=== PATIENT | female | born 1930 | race Caucasian/White ===

== ENCOUNTER → 2017-03-02 | Outpatient (CLI) | payer OTHER ==
[2016-12-21 08:42] VITALS: BP 115/56
[2017-03-02 13:19] LABS: BASOPHILS % (AUTO) 0.6 % (0.2-1.0); EOSINOPHILS # (AUTO) 0.3 x10^3/uL (0.0-0.2); EOSINOPHILS % (AUTO) 3.5 % (0.9-2.9); HEMATOCRIT 33.1 % (36.0-47.0); LYMPHOCYTES # (AUTO) 1.3 X10^3/uL (1.3-2.9); LYMPHOCYTES % (AUTO) 17.5 % (21.0-51.0); MEAN CORPUSCULAR HEMOGLOBIN 30.6 pg (27.0-34.0); MEAN CORPUSCULAR HGB CONC 33.3 g/dL (33.0-35.0); MEAN CORPUSCULAR VOLUME 91.7 fL (80.0-100.0); MEAN PLATELET VOLUME 7.7 fL (7.4-11.0); MONOCYTES # (AUTO) 0.7 x10^3/uL (0.3-0.8); MONOCYTES % (AUTO) 8.9 % (0.0-13.0); NEUTROPHILS # (AUTO) 5.3 x10^3/uL (2.2-4.8); NEUTROPHILS % (AUTO) 69.5 % (42.0-75.0); PLATELET COUNT 218 X10^3/uL (150.0-450.0); RED BLOOD COUNT 3.61 X10^6/uL (3.5-5.4); WHITE BLOOD COUNT 7.6 X10^3/uL (3.6-10.0)
[2017-03-02 13:27] LABS: HEMOGLOBIN A1C 6.6 % (4.5-6.2)
[2017-03-02 13:49] LABS: ALBUMIN 3.5 g/dL (3.4-5.0); BLOOD UREA NITROGEN 28 mg/dL (7-18); CALCIUM 9.3 mg/dL (8.5-10.1); CARBON DIOXIDE 27.9 mmol/L (21-32); CHLORIDE 106 mmol/L (98-107); CHOL/HDL RATIO 3.8 (0.0-5.0); CHOLESTEROL 165 mg/dL (0-200); COR NA(FOR HYPERGLY) 147 mmol/L (136-145); CREATININE 1.37 mg/dL (0.55-1.02); GLUCOSE 251 mg/dL (65-99); HDL CHOLESTEROL 44 mg/dL (40-60); PHOSPHORUS 3.9 mg/dL (2.6-4.7); SODIUM 143 mmol/L (136-145); TRIGLYCERIDES 117 mg/dL (0-150); eGFR BLACK RACES 47 (>60); eGFR NON BLACK RACES 39 (>60)
== END ==
LOC: LAB 11:14
PROVIDERS: ATTEND Internal Medicine
DX: I12.9 Hypertensive chronic kidney disease with stage 1 through stage 4 chronic kidney disease, or unspecified chronic kidney disease (principal); N18.2 Chronic kidney disease, stage 2 (mild); E11.9 Type 2 diabetes mellitus without complications; E78.4 Other hyperlipidemia
CPT/HCPCS: 36415; 80061; 80069; 83036; 85025

== ENCOUNTER 2017-03-12 11:24 | Emergency (ER) | payer OTHER ==
[2017-03-12 11:29] VITALS: BP 167/82; BMI 23.6
--- NOTE | 2017-03-12 11:39 | DR.GENAD ---
HPI - PCP Primary Care Physician: DR. GILLIAM - Complaint/Symptoms Chief Complaint Doctors Comments: Patient presents with complaint of left hip ain left knee pain, AMS, left ear pain. Thes symptoms ongoing for two to three weeks. Admits to having frontal sinus irrigation/surgery and was told would have some pain in ear. History of ongoing prombles with suellen but states that she is 86 and you can expect some memory loss but no dementia. Chief Complaint:: PATIENT STATED THAT SHE HAS BEEN HAVING LEFT HIP PAIN AND ALSO LEFT EAR PAIN FOR THE LAST COUPLE OF WEEKS. FAMILY STATED THAT SHE BEEN HAVING SOME AMS. - Source History Provided: Patient, EMS - Mode of Arrival Mode of Arrival: Stretcher - Timing Onset of Chief Complaint: 02/19/17 PMH - PMH Past Medical History: Yes Past Medical History: Anemia, CHF, Coronary Artery Disease, CVA, Depression, Diabetes, Hypertension Past Surgical History: Yes Surgical History: Cholecystectomy, Ortho Surgery - Family History History of Family Medical Conditions: Yes Family Medical History: Diabetes Mellitus, [place], Heart Failure, Hypertension - Social History Does patient currently use any type of tobacco product: No Have you used tobacco products in the last 12 months: No Type of Tobacco Use: None Does any household member use tobacco: No Alcohol Use: None Do you use any recreational Drugs:: No Lives With: Family Lives Where: Home - infectious screening In the last 2 months have you had wt loss of >10#?: NO Have you had fever, night sweats or hemotysis?: No Have you traveled outside the country in the last 6 months?: No Isolation: Standard ROS - Review of Systems Constitutional: No Symptoms Reported Eyes: No Symptoms Reported ENTM: No Symptoms Reported Respiratoy: No Symptoms Reported Cardiovascular: No Symptoms Reported Gastrointestinal/Abdominal: No Symptoms Reported Genitourinary: No Symptoms Reported Neurological: No Symptoms Reported Musculoskeletal: No Symptoms Reported Integumentary: No Symptoms Reported Hematologic/Lymphatic: No Symptoms Reported Endocrine: No Symptoms Reported Psychiatric: No Symptoms Reported All Other Systems: Reviewed and Negative PE - Vital Signs Vitals: Temperature 97.8 F Pulse Rate 60 Respiratory Rate 20 Blood Pressure [Right Arm] 130/60 Blood Pressure [Left Femoral 129/56 Artery] Blood Pressure [Left Arm] 115/56 Blood Pressure 167/82 O2 Sat by Pulse Oximetry 98 - General Limitations: No Limitations General Appearance: Alert, In No Apparent Distress - Head Head Exam: Normal Inspection, Atraumatic - Eyes Eye exam: Normal Appearance, PERRL - ENT ENT Exam: Normal Exam External Ear Exam: Normal External Inspection TM/Canal Exam: Bilateral Normal Nose Exam: Normal Nose Exam Mouth Exam: Normal Inspection Throat Exam: Normal Inspection - Neck Neck Exam: Normal Inspection - Chest Chest Inspection: Normal Inspection - Respiratory Respiratory Exam: Normal Lung Sounds Bilat Respiratory Exam: Bilateral Clear to Auscultation - Cardiovascular Cardiovascular Exam: Regular Rate - Abdominal Exam Abdominal Exam: Normal Inspection Abdominal Tenderness: negative: RUQ, RLQ, LUQ, LLQ, Epigastrium, Suprapubic, Diffuse, Mild, Moderate, Severe, Other - Extremities Extremities Exam: Normal Inspection, Other (left hip pain) - Back Back Exam: Normal Inspection - Neurologic Neurological Exam: Alert, Oriented X3, CN II-XII Intact - Psychiatric Psychiatric Exam: Normal Affect - Skin Skin Exam: Warm, Dry, Intact ROR - Labs Reviewed Result Diagrams: 03/12/17 11:40 03/12/17 11:40 Laboratory: WBC 5.4 X10^3/uL (3.6-10.0) 03/12/17 11:40 RBC 3.59 X10^6/uL (3.5-5.4) 03/12/17 11:40 Hgb 10.9 g/dL (12.0-16.0) L 03/12/17 11:40 Hct 32.5 % (36.0-47.0) L 03/12/17 11:40 MCV 90.6 fL (80.0-100.0) 03/12/17 11:40 MCH 30.3 pg (27.0-34.0) 03/12/17 11:40 MCHC 33.4 g/dL (33.0-35.0) 03/12/17 11:40 RDW 13.0 % (11.6-16.5) 03/12/17 11:40 Plt Count 201 X10^3/uL (150.0-450.0) 03/12/17 11:40 MPV 7.7 fL (7.4-11.0) 03/12/17 11:40 Neut % 63.9 % (42.0-75.0) 03/12/17 11:40 Lymph % 19.1 % (21.0-51.0) L 03/12/17 11:40 [place] % 11.0 % (0.0-13.0) 03/12/17 11:40 Eos % 5.0 % (0.9-2.9) H 03/12/17 11:40 Baso % 1.0 % (0.2-1.0) 03/12/17 11:40 Neut # 3.4 x10^3/uL (2.2-4.8) 03/12/17 11:40 Lymph # 1.0 X10^3/uL (1.3-2.9) L 03/12/17 11:40 [place] # 0.6 x10^3/uL (0.3-0.8) 03/12/17 11:40 Eos # 0.3 x10^3/uL (0.0-0.2) H 03/12/17 11:40 Baso # 0.1 X10^3/uL (0.0-0.1) 03/12/17 11:40 Absolute Nucleated RBC 0.1 /100WBC 03/12/17 11:40 Sodium 146 mmol/L (136-145) H 03/12/17 11:40 Corrected Sodium TNP 03/12/17 11:40 Potassium 4.2 mmol/L (3.5-5.1) 03/12/17 11:40 Chloride 110 mmol/L (98-107) H 03/12/17 11:40 Carbon Dioxide 29.4 mmol/L (21-32) 03/12/17 11:40 BUN 24 mg/dL (7-18) H 03/12/17 11:40 Creatinine 1.32 mg/dL (0.55-1.02) H 03/12/17 11:40 Est GFR (MDRD) Af Amer 49 (>60) L 03/12/17 11:40 Est GFR (MDRD) Non-Af 41 (>60) L 03/12/17 11:40 Glucose 86 mg/dL (65-99) 03/12/17 11:40 Calcium 9.0 mg/dL (8.5-10.1) 03/12/17 11:40 Corrected Calcium 9.6 mg/dL (8.5-10.1) 03/12/17 11:40 Total Bilirubin 0.40 mg/dL (0.2-1.0) 03/12/17 11:40 AST 24 Units/L (15-37) 03/12/17 11:40 ALT 31 Units/L (12-78) 03/12/17 11:40 Alkaline Phosphatase 70 Units/L (46-116) 03/12/17 11:40 C-Reactive Protein 3.30 mg/L (0-3.0) H 03/12/17 11:40 Total Protein 6.3 g/dL (6.4-8.2) L 03/12/17 11:40 Albumin 3.2 g/dL (3.4-5.0) L 03/12/17 11:40 Globulin 3.1 g/dL (2.5-4.5) 03/12/17 11:40 Albumin/Globulin Ratio 1.0 Ratio (1.1-2.1) L 03/12/17 11:40 - XRAY XRAY Interpreted by: Radiologist (CT Brain: No acute intracranial abnormality, mild age related cortical atrophy, small vessel disease. 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
[2017-03-12 11:57] LABS: BASOPHILS # (AUTO) 0.1 X10^3/uL (0.0-0.1); EOSINOPHILS # (AUTO) 0.3 x10^3/uL (0.0-0.2); HEMATOCRIT 32.5 % (36.0-47.0); HEMOGLOBIN 10.9 g/dL (12.0-16.0); LYMPHOCYTES % (AUTO) 19.1 % (21.0-51.0); MEAN CORPUSCULAR HEMOGLOBIN 30.3 pg (27.0-34.0); MEAN CORPUSCULAR HGB CONC 33.4 g/dL (33.0-35.0); MEAN CORPUSCULAR VOLUME 90.6 fL (80.0-100.0); MEAN PLATELET VOLUME 7.7 fL (7.4-11.0); MONOCYTES # (AUTO) 0.6 x10^3/uL (0.3-0.8); NEUTROPHILS # (AUTO) 3.4 x10^3/uL (2.2-4.8); NEUTROPHILS % (AUTO) 63.9 % (42.0-75.0); PLATELET COUNT 201 X10^3/uL (150.0-450.0); RED BLOOD COUNT 3.59 X10^6/uL (3.5-5.4); WHITE BLOOD COUNT 5.4 X10^3/uL (3.6-10.0)
[2017-03-12 12:00] LABS: ALANINE AMINOTRANSFERASE 31 Units/L (12-78); ALBUMIN 3.2 g/dL (3.4-5.0); ALKALINE PHOSPHATASE 70 Units/L (46-116); ASPARTATE AMINO TRANSFERASE 24 Units/L (15-37); BLOOD UREA NITROGEN 24 mg/dL (7-18); CARBON DIOXIDE 29.4 mmol/L (21-32); CHLORIDE 110 mmol/L (98-107); COR CA(FOR HYPOALB) 9.6 mg/dL (8.5-10.1); CREATININE 1.32 mg/dL (0.55-1.02); GLUCOSE 86 mg/dL (65-99); SODIUM 146 mmol/L (136-145); TOTAL PROTEIN 6.3 g/dL (6.4-8.2); eGFR BLACK RACES 49 (>60); eGFR NON BLACK RACES 41 (>60)
--- NOTE | 2017-03-12 13:20 | CT ---
HISTORY: Altered mental status Study: CT head without contrast Comparison: October 24, 2016, September 13, 2015 Technique: Axial non contrast images with coronal and sagittal reformats. Dose reduction procedures were used with MA/kv adjusted for body size. Findings: The ventricles are normal in size shape and position. Mild age-related cortical atrophy is present. There is decreased attenuation in the periventricular white matter suggestive of small vessel vascul ar disease. There is an old lacunar infarct in the anterior limb of the right internal capsule uncha nged. There is no evidence for recent CVA, hemorrhage, mass lesion, or inflammation. Those sinuses v isualized were clear. 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
--- NOTE | 2017-03-12 13:33 | RAD ---
Examination: X-rays of the left hip. Clinical history: Left hip pain, AMS. Technique: An AP view of the pelvis and a frog-leg lateral view of the left hip were obtained. Comparison: 05/16/2015. Findings: The bones are diffusely osteopenic. An intramedullary pin associated with the proximal right femur is incompletely visualized. A subha ethan screw is seen extending into the right femoral neck and head. There is a deformity of the proxi mal right femur, consistent with an old healed fracture. No acute fracture, dislocation, or destructive bony lesion is noted. No arthropathy is appreciated at the hips bilaterally. Degenerative changes are noted in the visuali zed portion of the spine. No soft tissue abnormality is noted. Impression: 1. No acute fracture or dislocation. 2. Diffuse osteopenia. 3. Postsurgical changes associated with the right hip, as described above. Reported By:
== END 2017-03-12 14:27 | disposition home or self-care (01) ==
LOC: ER 11:32
DX: M25.552 Pain in left hip (principal); M85.80 Other specified disorders of bone density and structure, unspecified site
CPT/HCPCS: 36415; 70450; 73501; 80053; 85025; 86140; 99282

== ENCOUNTER 2017-05-01 17:17 | Observation (INO) | payer OTHER ==
--- NOTE | 2017-05-01 17:32 | DR.GENAD ---
HPI - HPI Comment HPI Comment: PATIENT CHECK GLUCOSE WITH INSULIN COVERAGE. LIVE ALONE. CONCERN GLUCOSE WILL BOTTOM OUTDUE TO ALL INSULIN TAKING. GLUCOSE HAVE BEING UNCONTROL FOR FEW DAYS. - Complaint/Symptoms Chief Complaint Doctors Comments: ELEVATED BLOOD GLUCOSE. WEAKNESS. - Nurses notes reviewed Nurses Notes Review: Yes - Source History Provided: Patient, Family Member - Mode of Arrival Mode of Arrival: Stretcher - Timing Came on: Suddenly - Duration Duration: Intermittent Duration: Days - Severity Severity: Moderate PMH - PMH Past Medical History: Anemia, CHF, Coronary Artery Disease, CVA, Depression, Diabetes, Hypertension Past Surgical History: Yes Surgical History: Cholecystectomy, Ortho Surgery - Family History Family Medical History: Diabetes Mellitus, [place], Heart Failure, Hypertension - Social History Do you use any recreational Drugs:: No ROS - Review of Systems Constitutional: Weakness, Fatigue, Loss of Appetite. negative: Chills, Diaphoresis, Fever Eyes: No Symptoms Reported. negative: Eye Pain, Discharge ENTM: No Symptoms Reported. negative: Ear Pain, Nose Discharge, Nose Congestion , Throat Pain Respiratoy: Short of Breath. negative: Productive Cough, Non-Productive Cough, Wheezing, Hemoptysis Cardiovascular: negative: Chest Pain, Syncope (NEAR SYNCOPE) Gastrointestinal/Abdominal: Nausea. negative: Diarrhea, Vomiting Genitourinary: No Symptoms Reported. negative: Dysuria, Frequency, Hematuria Neurological: Weakness, Dizziness. negative: Headache Musculoskeletal: Joint Pain, Muscle Pain Integumentary: No Symptoms Reported Hematologic/Lymphatic: No Symptoms Reported Endocrine: No Symptoms Reported All Other Systems: Reviewed and Negative PE - Vital Signs Vitals: Temperature 98.2 F Pulse Rate 63 Respiratory Rate 18 Blood Pressure [Right Arm] 130/60 Blood Pressure [Left Femoral 129/56 Artery] Blood Pressure [Left Arm] 115/56 Blood Pressure 144/62 O2 Sat by Pulse Oximetry 96 - General Limitations: No Limitations General Appearance: Alert - Head Head Exam: Normal Inspection - Eyes Eye exam: Normal Appearance - ENT ENT Exam: Normal External Ear Exam, Mucous Membranes Dry External Ear Exam: Normal External Inspection TM/Canal Exam: Bilateral Normal Nose Exam: Normal Nose Exam Mouth Exam: Normal Inspection Throat Exam: Normal Inspection - Neck Neck Exam: Trachea Midline. negative: Tenderness, Meningismus, Lymphadenopathy - Chest Chest Inspection: Symmetric Chest Wall Rise - Respiratory Respiratory Exam: Normal Lung Sounds Bilat Respiratory Exam: Bilateral Clear to Auscultation - Cardiovascular Cardiovascular Exam: Regular Rate, Normal Rhythm, Normal Heart Sounds - Abdominal Exam Abdominal Exam: Normal Bowel Sounds, Soft. negative: Tenderness - Extremities Extremities Exam: Normal Inspection - Back Back Exam: Normal Inspection - Neurologic Neurological Exam: Alert, Oriented X3 - Psychiatric Psychiatric Exam: Normal Affect, Normal Mood - Skin Skin Exam: Normal Color MDM - Additional Information Additional Information Obtained From: Family - Differential Diagnosis Differential Diagnosis: HYPERGLYCEMIA, DEHYDRATION, GENERALIZE WEAKNESS Course - Treatment Treatment: SEE ORDERS. - Consultation Consultation Comments: DISCUSS PATIENT WITH DR. GILLIAM. HE WILL ADMIT PATIENT. - Education/Counseling Education/Counseling: Patient, Education Educated On: Treatment, Diagnosis, Needs for Follow Up ROR - Labs Reviewed Laboratory Results Reviewed?: Yes Result Diagrams: 05/02/17 04:45 05/02/17 04:45 Laboratory: WBC 9.1 X10^3/uL (3.6-10.0) 05/01/17 17:50 RBC 3.38 X10^6/uL (3.5-5.4) L 05/01/17 17:50 Hgb 10.6 g/dL (12.0-16.0) L 05/01/17 17:50 Hct 30.5 % (36.0-47.0) L 05/01/17 17:50 MCV 90.3 fL (80.0-100.0) 05/01/17 17:50 MCH 31.4 pg (27.0-34.0) 05/01/17 17:50 MCHC 34.7 g/dL (33.0-35.0) 05/01/17 17:50 RDW 13.2 % (11.6-16.5) 05/01/17 17:50 Plt Count 207 X10^3/uL (150.0-450.0) 05/01/17 17:50 MPV 7.6 fL (7.4-11.0) 05/01/17 17:50 Neut % 79.3 % (42.0-75.0) H 05/01/17 17:50 Lymph % 11.1 % (21.0-51.0) L 05/01/17 17:50 [place] % 6.2 % (0.0-13.0) 05/01/17 17:50 Eos % 2.8 % (0.9-2.9) 05/01/17 17:50 Baso % 0.6 % (0.2-1.0) 05/01/17 17:50 Neut # 7.2 x10^3/uL (2.2-4.8) H 05/01/17 17:50 Lymph # 1.0 X10^3/uL (1.3-2.9) L 05/01/17 17:50 [place] # 0.6 x10^3/uL (0.3-0.8) 05/01/17 17:50 Eos # 0.3 x10^3/uL (0.0-0.2) H 05/01/17 17:50 Baso # 0.1 X10^3/uL (0.0-0.1) 05/01/17 17:50 Absolute Nucleated RBC 0.0 /100WBC 05/01/17 17:50 Sodium 140 mmol/L (136-145) 05/01/17 17:50 Corrected Sodium 143 mmol/L (136-145) 05/01/17 17:50 Potassium 4.5 mmol/L (3.5-5.1) 05/01/17 17:50 Chloride 105 mmol/L (98-107) 05/01/17 17:50 Carbon Dioxide 28.6 mmol/L (21-32) 05/01/17 17:50 BUN 24 mg/dL (7-18) H 05/01/17 17:50 Creatinine 1.46 mg/dL (0.55-1.02) H 05/01/17 17:50 Est GFR (MDRD) Af Amer 44 (>60) L 05/01/17 17:50 Est GFR (MDRD) Non-Af 36 (>60) L 05/01/17 17:50 Glucose 216 mg/dL (65-99) H 05/01/17 17:50 Calcium 9.2 mg/dL (8.5-10.1) 05/01/17 17:50 Corrected Calcium 9.9 mg/dL (8.5-10.1) 05/01/17 17:50 Total Bilirubin 0.40 mg/dL (0.2-1.0) 05/01/17 17:50 AST 19 Units/L (15-37) 05/01/17 17:50 ALT 26 Units/L (12-78) 05/01/17 17:50 Alkaline Phosphatase 65 Units/L (46-116) 05/01/17 17:50 Creatine Kinase 53 Units/L (26-192) 05/01/17 17:50 CK-MB (CK-2) < 1.0 ng/mL (0-4.0) 05/01/17 17:50 CK/CKMB % Calc 1.9 % (<4) 05/01/17 17:50 Troponin I < 0.02 ng/mL (0-1.5) 05/01/17 17:50 Total Protein 6.2 g/dL (6.4-8.2) L 05/01/17 17:50 Albumin 3.1 g/dL (3.4-5.0) L 05/01/17 17:50 Globulin 3.1 g/dL (2.5-4.5) 05/01/17 17:50 Albumin/Globulin Ratio 1.0 Ratio (1.1-2.1) L 05/01/17 17:50 Acetone, Semi-Quant Negative (NEGATIVE) 05/01/17 17:50 - EKG Rhythm: NSR (EKG NOTED) - Diagnosis Discharge Problem: Dehydration, Hyperglycemia, Generalized weakness - Discharge Plan Disposition: ADMITTED INPATIENT Condition: Stable - Follow ups/Referrals - Instructions
[2017-05-01 18:03] LABS: BASOPHILS # (AUTO) 0.1 X10^3/uL (0.0-0.1); BASOPHILS % (AUTO) 0.6 % (0.2-1.0); EOSINOPHILS # (AUTO) 0.3 x10^3/uL (0.0-0.2); EOSINOPHILS % (AUTO) 2.8 % (0.9-2.9); HEMATOCRIT 30.5 % (36.0-47.0); HEMOGLOBIN 10.6 g/dL (12.0-16.0); LYMPHOCYTES % (AUTO) 11.1 % (21.0-51.0); MEAN CORPUSCULAR HEMOGLOBIN 31.4 pg (27.0-34.0); MEAN CORPUSCULAR HGB CONC 34.7 g/dL (33.0-35.0); MEAN CORPUSCULAR VOLUME 90.3 fL (80.0-100.0); MEAN PLATELET VOLUME 7.6 fL (7.4-11.0); MONOCYTES # (AUTO) 0.6 x10^3/uL (0.3-0.8); MONOCYTES % (AUTO) 6.2 % (0.0-13.0); NEUTROPHILS # (AUTO) 7.2 x10^3/uL (2.2-4.8); NEUTROPHILS % (AUTO) 79.3 % (42.0-75.0); PLATELET COUNT 207 X10^3/uL (150.0-450.0); RED BLOOD COUNT 3.38 X10^6/uL (3.5-5.4); RED CELL DISTRIBUTION WIDTH 13.2 % (11.6-16.5); WHITE BLOOD COUNT 9.1 X10^3/uL (3.6-10.0)
[2017-05-01 18:17] LABS: BLOOD UREA NITROGEN 24 mg/dL (7-18); CALCIUM 9.2 mg/dL (8.5-10.1); CARBON DIOXIDE 28.6 mmol/L (21-32); CHLORIDE 105 mmol/L (98-107); COR NA(FOR HYPERGLY) 143 mmol/L (136-145); CREATININE 1.46 mg/dL (0.55-1.02); GLUCOSE 216 mg/dL (65-99); SODIUM 140 mmol/L (136-145); TROPONIN I < 0.02 ng/mL (0-1.5); eGFR BLACK RACES 44 (>60); eGFR NON BLACK RACES 36 (>60)
[2017-05-01 18:22] LABS: ALANINE AMINOTRANSFERASE 26 Units/L (12-78); ALBUMIN 3.1 g/dL (3.4-5.0); ALKALINE PHOSPHATASE 65 Units/L (46-116); ASPARTATE AMINO TRANSFERASE 19 Units/L (15-37); COR CA(FOR HYPOALB) 9.9 mg/dL (8.5-10.1); CREATINE KINASE 53 Units/L (26-192); CREATINE KINASE MB < 1.0 ng/mL (0-4.0); TOTAL PROTEIN 6.2 g/dL (6.4-8.2)
[2017-05-01 18:35] LABS: CKMB % 1.9 % (<4)
[2017-05-01 19:25] LABS: BILIRUBIN,URINE NEGATIVE (NEGATIVE); BLOOD/HEMOGLOBIN,URINE 2+ (NEGATIVE); GLUCOSE, URINE NEGATIVE (NEGATIVE); KETONES,URINE NEGATIVE (NEGATIVE); LEUKOCYTE ESTERASE ,URINE 3+ (NEGATIVE); NITRITES,URINE NEGATIVE (NEGATIVE); PROTEIN,URINE 2+ (NEGATIVE); UROBILINOGEN,URINE NORMAL (NORMAL)
[2017-05-01 19:36] LABS: APPEARANCE,URINE SLIGHTLY HAZY (CLEAR); COLOR,URINE YELLOW (YELLOW)
[2017-05-01 19:45] LABS: AMORPHOUS SEDIMENT,UR TRACE /HPF (NEGATIVE); BACTERIA,URINE TRACE /HPF (NEGATIVE); HYALINE CASTS, URINE MODERATE /LPF (NEGATIVE); RBC,URINE 0 - 4 /HPF (NEGATIVE); SQUAMOUS EPITHELIAL CELL,UR MANY /HPF (NEGATIVE)
[2017-05-01] MEDS ORDERED: LEVAQUIN PREMIX IV 500 MG 500 MG/100 ML BAG IV ONE (20:00)
[2017-05-01] MEDS ORDERED: NS 1000 ML 1,000 ML ONE (20:00)
[2017-05-01] MEDS: NS 1000 ML 1,000 ML IV SCH (20:05)
[2017-05-01 21:28] VITALS: BMI 24.3
[2017-05-01] MEDS: ZANTAC PO SCH (22:23)
[2017-05-01] MEDS: COREG TAB 25 MG PO SCH (22:23)
[2017-05-01] MEDS ORDERED: KLONOPIN TAB 0.5 MG PO ONE (22:23)
[2017-05-01] MEDS: PRAVACHOL PO SCH (22:24)
[2017-05-01] MEDS: ZyrTEC TAB 10 MG PO SCH (22:24)
[2017-05-02 00:32] LABS: CKMB % 1.5 % (<4); CREATINE KINASE 65 Units/L (26-192); CREATINE KINASE MB < 1.0 ng/mL (0-4.0); TROPONIN I < 0.02 ng/mL (0-1.5)
[2017-05-02] MEDS: HumuLIN R SUBCUT PRN ×3 (00:44→12:35)
[2017-05-02 06:02] LABS: BASOPHILS % (AUTO) 0.6 % (0.2-1.0); EOSINOPHILS # (AUTO) 0.4 x10^3/uL (0.0-0.2); EOSINOPHILS % (AUTO) 6.4 % (0.9-2.9); HEMATOCRIT 28.7 % (36.0-47.0); HEMOGLOBIN 10.2 g/dL (12.0-16.0); MEAN CORPUSCULAR HEMOGLOBIN 31.8 pg (27.0-34.0); MEAN CORPUSCULAR HGB CONC 35.4 g/dL (33.0-35.0); MEAN CORPUSCULAR VOLUME 89.8 fL (80.0-100.0); MEAN PLATELET VOLUME 7.9 fL (7.4-11.0); MONOCYTES # (AUTO) 0.7 x10^3/uL (0.3-0.8); MONOCYTES % (AUTO) 10.6 % (0.0-13.0); NEUTROPHILS # (AUTO) 4.2 x10^3/uL (2.2-4.8); NEUTROPHILS % (AUTO) 66.4 % (42.0-75.0); PLATELET COUNT 185 X10^3/uL (150.0-450.0); RED CELL DISTRIBUTION WIDTH 12.6 % (11.6-16.5); WHITE BLOOD COUNT 6.3 X10^3/uL (3.6-10.0)
[2017-05-02 06:30] LABS: ALBUMIN 2.6 g/dL (3.4-5.0); CALCIUM 8.9 mg/dL (8.5-10.1); CARBON DIOXIDE 25.6 mmol/L (21-32); CREATININE 1.17 mg/dL (0.55-1.02); MAGNESIUM 1.7 mg/dL (1.7-2.9); TOTAL PROTEIN 5.8 g/dL (6.4-8.2)
[2017-05-02] MEDS ORDERED: PROzac PO SCH (09:00)
[2017-05-02] MEDS ORDERED: KLONOPIN TAB 0.5 MG PO SCH (09:00)
[2017-05-02] MEDS: COREG TAB 25 MG PO SCH ×2 (09:04→21:48)
[2017-05-02] MEDS: NexIUM PO SCH (09:04)
[2017-05-02] MEDS: ZANTAC PO SCH ×2 (09:04→21:47)
[2017-05-02] MEDS: NS 1000 ML 1,000 ML IV SCH (09:05)
[2017-05-02 09:21] LABS: CREATINE KINASE 61 Units/L (26-192); CREATINE KINASE MB < 1.0 ng/mL (0-4.0); TROPONIN I < 0.02 ng/mL (0-1.5)
[2017-05-02 09:31] LABS: CKMB % 1.6 % (<4)
[2017-05-02] MEDS ORDERED: METHYLDOPA 500 MG PO SCH (11:45)
[2017-05-02] MEDS: CLARITIN PO SCH (14:53)
[2017-05-02] MEDS: PROzac PO SCH (15:27)
[2017-05-02] MEDS: NORCO 7.5/325 MG TAB PO PRN (17:44)
[2017-05-02] MEDS ORDERED: PATIENT'S HOME MEDICATION (Oxybutynin Chloride [Ditropan Xl] 10 MG) PO SCH (21:00)
[2017-05-02] MEDS: LANTUS SC SCH (21:45)
[2017-05-02] MEDS: ALDOMET PO SCH (21:47)
[2017-05-02] MEDS: ZyrTEC TAB 10 MG PO SCH (21:48)
[2017-05-02] MEDS: DITROPAN TAB 5 MG PO SCH (21:48)
[2017-05-02] MEDS: KLONOPIN TAB 0.5 MG PO SCH (21:48)
[2017-05-02] MEDS: PRAVACHOL PO SCH (21:48)
[2017-05-02] MEDS: XANAX PO PRN (22:03)
[2017-05-02] MEDS: LEVAQUIN PREMIX IV 250 MG 250 MG/50 ML BAG IV SCH (22:04)
[2017-05-03] MEDS: NS 1000 ML 1,000 ML IV SCH ×3 (01:30→15:10)
[2017-05-03 05:21] LABS: ALANINE AMINOTRANSFERASE 24 Units/L (12-78); ALBUMIN 2.7 g/dL (3.4-5.0); ALKALINE PHOSPHATASE 57 Units/L (46-116); ASPARTATE AMINO TRANSFERASE 19 Units/L (15-37); BLOOD UREA NITROGEN 14 mg/dL (7-18); CALCIUM 8.8 mg/dL (8.5-10.1); CARBON DIOXIDE 26.1 mmol/L (21-32); CHLORIDE 109 mmol/L (98-107); COR CA(FOR HYPOALB) 9.8 mg/dL (8.5-10.1); CREATININE 1.01 mg/dL (0.55-1.02); GLUCOSE 88 mg/dL (65-99); SODIUM 142 mmol/L (136-145); TOTAL PROTEIN 5.8 g/dL (6.4-8.2); eGFR BLACK RACES > 60 (>60); eGFR NON BLACK RACES 55 (>60)
[2017-05-03 05:53] LABS: BASOPHILS % (AUTO) 0.6 % (0.2-1.0); EOSINOPHILS # (AUTO) 0.5 x10^3/uL (0.0-0.2); EOSINOPHILS % (AUTO) 7.2 % (0.9-2.9); HEMATOCRIT 28.8 % (36.0-47.0); HEMOGLOBIN 10.1 g/dL (12.0-16.0); LYMPHOCYTES # (AUTO) 1.4 X10^3/uL (1.3-2.9); LYMPHOCYTES % (AUTO) 22.1 % (21.0-51.0); MEAN CORPUSCULAR HEMOGLOBIN 31.6 pg (27.0-34.0); MEAN CORPUSCULAR HGB CONC 35.1 g/dL (33.0-35.0); MEAN CORPUSCULAR VOLUME 90.1 fL (80.0-100.0); MEAN PLATELET VOLUME 8.2 fL (7.4-11.0); MONOCYTES # (AUTO) 0.8 x10^3/uL (0.3-0.8); MONOCYTES % (AUTO) 12.6 % (0.0-13.0); NEUTROPHILS # (AUTO) 3.6 x10^3/uL (2.2-4.8); NEUTROPHILS % (AUTO) 57.5 % (42.0-75.0); PLATELET COUNT 195 X10^3/uL (150.0-450.0); RED CELL DISTRIBUTION WIDTH 12.9 % (11.6-16.5); WHITE BLOOD COUNT 6.2 X10^3/uL (3.6-10.0)
--- NOTE | 2017-05-03 06:46 | RAD ---
HISTORY: Cough Study: Chest two-view Comparison: December 19, 2016, October 20, 2016 Findings: The heart is enlarged. No congestive heart failure is noted. The xavier are normal. The lungs are well inflated and free of acute alveolar infiltrates. No pleural effusions are identified. The bony thor ax is unremarkable. IMPRESSION: Cardiomegaly without congestive heart failure No acute infiltrates Reported By:
[2017-05-03] MEDS: COREG TAB 25 MG PO SCH ×2 (09:34→21:09)
[2017-05-03] MEDS: NexIUM PO SCH (09:34)
[2017-05-03] MEDS: ALDOMET PO SCH (09:34)
[2017-05-03] MEDS: CLARITIN PO SCH (09:35)
[2017-05-03] MEDS: DITROPAN TAB 5 MG PO SCH ×2 (09:35→21:09)
[2017-05-03] MEDS: PROzac PO SCH (09:35)
[2017-05-03] MEDS: ZANTAC PO SCH ×2 (09:36→21:09)
[2017-05-03] MEDS ORDERED: CATAPRES-TTS-3 TD SCH (10:00)
--- NOTE | 2017-05-03 12:03 | PCM.PROG ---
Progress Note - Progress Note for Day of Date: 05/03/17 - Subjective Subjective: Patient is a 86 yo female who was admitted to the hospital for Hyperglycemia, Dehydration and generalized weakness. This am the patient is confused and has been noted to be having some hypertension despite her clonidine patch in place. Family states that she has been having hallucinations and becoming incontinent. They discussed that they would like to see about [facility] long term care [facility] placement. We are going to work with case management to see what her options are and let the family know. We are going to discontinue her methyldopa and respiradone. We are going to start her on Lisinopril 20mg at bedtime for her hypertension. Vital signs this am are 98.1, 62, 18, 95, 190/90. Labs are within normal limits with the exception of RBC 3.20, Hgb 10.1, Hct 28.8 , MCHC 35.1, Eos% 7.2, Eos# 0.5, Chloride 109, Est GFR 55, Total Protein 5.8, aLbumin 2.7, albumin/globulin ratio 0.9. Chest xray this am shows cardiomegaly without congestive heart failure and no infiltrates. - Past Medical Family Social History Past Med/Fam/Surg Hx: No changes since H&P Allergies: Allergies MS Penicillins [Penicillins] Allergy (Verified 12/18/16 22:44) MS Zolpidem [From Ambien] Allergy (Verified 12/18/16 22:44) MS Diazepam [From Valium] Adverse Reaction (Verified 12/18/16 22:44) CONFUSION - Review of Systems ROS: No change since H&P - Vital Signs and I&O's Vital Signs: Temperature 98.4 F Pulse Rate [Right Brachial] 62 Pulse Rate [Left Radial] 63 Respiratory Rate 20 Blood Pressure [Right Arm] 180/88 Blood Pressure [Left Arm] 133/61 O2 Sat by Pulse Oximetry 94 Intake and Output: Intake & Output 05/01/17 05/02/17 05/03/17 05/04/17 11:59 11:59 11:59 11:59 Intake Total 660 1788 Output Total 600 1600 Balance 60 188 - Physical Exam Oriented: Not Oriented Eyes: Normal Ear: Normal Nose: Normal Throat: Normal Respiratory: Normal Cardiovascular: Normal : Normal Auscultation: Bowel Sounds: Normal Palpation: Normal Tenderness: Normal Skin: Normal Musculoskeletal: Instability Psychiatric: Normal Mood Description: Calm Affect: Normal Speech Pattern: Clear, Appropriate - Laboratory and Diagnostics Result Diagrams: 05/03/17 03:35 05/03/17 03:35 Labs: Laboratory WBC 6.2 X10^3/uL (3.6-10.0) 05/03/17 03:35 RBC 3.20 X10^6/uL (3.5-5.4) L 05/03/17 03:35 Hgb 10.1 g/dL (12.0-16.0) L 05/03/17 03:35 Hct 28.8 % (36.0-47.0) L 05/03/17 03:35 MCV 90.1 fL (80.0-100.0) 05/03/17 03:35 MCH 31.6 pg (27.0-34.0) 05/03/17 03:35 MCHC 35.1 g/dL (33.0-35.0) H 05/03/17 03:35 RDW 12.9 % (11.6-16.5) 05/03/17 03:35 Plt Count 195 X10^3/uL (150.0-450.0) 05/03/17 03:35 MPV 8.2 fL (7.4-11.0) 05/03/17 03:35 Neut % 57.5 % (42.0-75.0) 05/03/17 03:35 Lymph % 22.1 % (21.0-51.0) 05/03/17 03:35 [place] % 12.6 % (0.0-13.0) 05/03/17 03:35 Eos % 7.2 % (0.9-2.9) H 05/03/17 03:35 Baso % 0.6 % (0.2-1.0) 05/03/17 03:35 Neut # 3.6 x10^3/uL (2.2-4.8) 05/03/17 03:35 Lymph # 1.4 X10^3/uL (1.3-2.9) 05/03/17 03:35 [place] # 0.8 x10^3/uL (0.3-0.8) 05/03/17 03:35 Eos # 0.5 x10^3/uL (0.0-0.2) H 05/03/17 03:35 Baso # 0.0 X10^3/uL (0.0-0.1) 05/03/17 03:35 Absolute Nucleated RBC 0.1 /100WBC 05/03/17 03:35 INR Target Range - 05/02/17 04:45 INR 1.36 (0.8-1.3) H 05/02/17 04:45 PTT 39.6 SECONDS (22.9-36.5) H 05/02/17 04:45 PTT Comment - 05/02/17 04:45 Sodium 142 mmol/L (136-145) 05/03/17 03:35 Corrected Sodium TNP 05/03/17 03:35 Potassium 3.6 mmol/L (3.5-5.1) 05/03/17 03:35 Chloride 109 mmol/L (98-107) H 05/03/17 03:35 Carbon Dioxide 26.1 mmol/L (21-32) 05/03/17 03:35 BUN 14 mg/dL (7-18) 05/03/17 03:35 Creatinine 1.01 mg/dL (0.55-1.02) 05/03/17 03:35 Est GFR (MDRD) Af Amer > 60 (>60) 05/03/17 03:35 Est GFR (MDRD) Non-Af 55 (>60) L 05/03/17 03:35 Glucose 88 mg/dL (65-99) 05/03/17 03:35 Calcium 8.8 mg/dL (8.5-10.1) 05/03/17 03:35 Corrected Calcium 9.8 mg/dL (8.5-10.1) 05/03/17 03:35 Magnesium 1.7 mg/dL (1.7-2.9) 05/02/17 04:45 Total Bilirubin 0.30 mg/dL (0.2-1.0) 05/03/17 03:35 AST 19 Units/L (15-37) 05/03/17 03:35 ALT 24 Units/L (12-78) 05/03/17 03:35 Alkaline Phosphatase 57 Units/L (46-116) 05/03/17 03:35 Creatine Kinase 61 Units/L (26-192) 05/02/17 04:45 CK-MB (CK-2) < 1.0 ng/mL (0-4.0) 05/02/17 04:45 CK/CKMB % Calc 1.6 % (<4) 05/02/17 04:45 Troponin I < 0.02 ng/mL (0-1.5) 05/02/17 04:45 Total Protein 5.8 g/dL (6.4-8.2) L 05/03/17 03:35 Albumin 2.7 g/dL (3.4-5.0) L 05/03/17 03:35 Globulin 3.1 g/dL (2.5-4.5) 05/03/17 03:35 Albumin/Globulin Ratio 0.9 Ratio (1.1-2.1) L 05/03/17 03:35 Specimen Type Clean catch urine 05/01/17 19:17 Urine Color Yellow (YELLOW) 05/01/17 19:17 Urine Appearance Slightly hazy (CLEAR) 05/01/17 19:17 Urine pH 5.0 (5.0 - 8.0) 05/01/17 19:17 Ur Specific [place] 1.015 (1.000-1.030) 05/01/17 19:17 Urine Protein 2+ (NEGATIVE) 05/01/17 19:17 Urine Glucose (UA) Negative (NEGATIVE) 05/01/17 19:17 Urine Ketones Negative (NEGATIVE) 05/01/17 19:17 Urine Occult Blood 2+ (NEGATIVE) 05/01/17 19:17 Urine Nitrite Negative (NEGATIVE) 05/01/17 19:17 Urine Bilirubin Negative (NEGATIVE) 05/01/17 19:17 Urine Urobilinogen Normal (NORMAL) 05/01/17 19:17 Ur Leukocyte Esterase 3+ (NEGATIVE) 05/01/17 19:17 Urine RBC 0 - 4 /HPF (NEGATIVE) 05/01/17 19:17 Urine WBC 30 - 40 with clumps /HPF (NEGATIVE) 05/01/17 19:17 Ur Squamous Epith Cells Many /HPF (NEGATIVE) 05/01/17 19:17 Amorphous Sediment Trace /HPF (NEGATIVE) 05/01/17 19:17 Urine Bacteria Trace /HPF (NEGATIVE) 05/01/17 19:17 Hyaline Casts Moderate /LPF (NEGATIVE) 05/01/17 19:17 Ur Culture Indicated? Yes/culture set up 05/01/17 19:17 Acetone, Semi-Quant Negative (NEGATIVE) 05/01/17 17:50 Radiology Reviewed: Yes - Plan (1) Hypertension Status: Acute Qualifiers: Hypertension type: H Plan: continue catapress patch 0.3, lisinopril 20mg at bedtime (2) Hyperlipidemia Status: Acute Qualifiers: Hyperlipidemia type: H Plan: continue pravachol (3) Dehydration Status: Acute Plan: NS@75 (4) Hyperglycemia Status: Acute Plan: OTBS AC&HS, Regular insulin SSC, Lantus 25units at bedtime (5) Anxiety Status: Chronic Plan: xanax (6) UTI (urinary tract infection) Status: Acute Qualifiers: Urinary tract infection type: U Hematuria presence: H Indwelling urinary catheter type: I Encounter type: E Plan: levaquin 250mg IV DAily
[2017-05-03] MEDS ORDERED: ZESTRIL TAB 20 MG ONE (17:44)
--- NOTE | 2017-05-03 17:44 | DR.H&P ---
H&P - History & Physical for Day of: H&P Date: 05/01/17 - Chief Complaint Chief Complaint: Elevated BS, Weak. - Allergies Allergies/Adverse Reactions: Allergies Allergy/AdvReac Type Severity Reaction Status Date / Time MS Penicillins [Penicillins] Allergy Verified 12/18/16 22:44 MS Zolpidem [From Ambien] Allergy Verified 12/18/16 22:44 MS Diazepam [From Valium] AdvReac CONFUSION Verified 12/18/16 22:44 - History of Present Illness History of Present Illness: Patient is a 86 yo female who was admitted to the hospital for Hyperglycemia, Dehydration and generalized weakness. Patient is unsure how to take her insulin and has not been taking. - Past Medical History Past Medical History: Anemia, CHF, Coronary Artery Disease, CVA, Depression, Diabetes, Hypertension Additional Medical History: Legally Blind, Tremors, Bronchitis, Constipation, Frequent UTI's, Gout, Breast Cancer, Fracture of Wrist, Fracture of Right Femur - Past Surgical History Surgical History: Cholecystectomy, Ortho Surgery - Family History Family Medical History: Diabetes Mellitus, [place], Heart Failure, Hypertension - Social History Does patient currently use any type of tobacco product: No Have you used tobacco products in the last 12 months: No Type of Tobacco Use: None Does any household member use tobacco: No Alcohol Use: None Drug Use: None - Medications Home Medications: Alprazolam [XANAX 0.5 MG *] 1 tab PO BID PRN MDD 1mg 05/01/17 [History Confirmed 05/01/17] Cetirizine HCl [Zyrtec Allergy] 10 mg PO HS 05/01/17 [History Confirmed 05/01/17 ] Fluoxetine HCl [FLUOXETINE 10 MG *] 1 cap PO DAILY 05/01/17 [History Confirmed 05/01/17] Hydrocodone-Acet 7.5 mg/325 mg [[place] 7.5/325 mg Tab] 1 tab PO Q6H PRN 05/01/17 [History Confirmed 05/01/17] Insulin Glargine (Lantus) [LANTUS INSULIN 10 ML VIAL *] 25 units SC HS 05/01/17 [History Confirmed 05/01/17] Insulin Lispro (Humalog) [Humalog] 1 units SC [facility] 05/01/17 [History Confirmed 05/01/17] Oxybutynin Chloride [Ditropan XL] 10 mg PO HS 05/01/17 [History Confirmed ] Clonidine HCl [CATAPRES-TTS patch 0.3 mg/24 hr 7-day *] 1 patch TD WEEKLY [History Confirmed 05/03/17] - Review of Systems Constitutional: Weakness Eyes: No Symptoms Reported ENT: No Symptoms Reported Respiratory: No Symptoms Reported Cardiovascular: No Symptoms Reported Gastrointestinal: No Symptoms Reported Genitourinary: No Symptoms Reported Musculoskeletal: No Symptoms Reported Skin: No Symptoms Reported Neurological: No Symptoms Reported - Physical Exam Vital Signs: Temperature 98.0 F Pulse Rate [Right Brachial] 62 Pulse Rate [Left Radial] 63 Respiratory Rate 20 Blood Pressure [Right Arm] 180/90 Blood Pressure [Left Arm] 230/98 O2 Sat by Pulse Oximetry 94 Oriented: Not Oriented Eyes: Normal Ear: Normal Nose: Normal Throat: Normal Respiratory: Clear Throughout Cardiovascular: Normal : Normal Auscultation: Bowel Sounds: Normal Palpation: Normal Tenderness: Normal Skin: Normal Musculoskeletal: Normal Psychiatric: Normal Mood Description: Calm Affect: Quiet Speech Pattern: Clear - Assessment/Plan (1) Generalized weakness Status: Acute Plan: LABS, IVFS (2) Hyperglycemia Status: Acute Plan: MONITOR BS, MEDS APPROPRIATE (3) UTI (urinary tract infection) Qualifiers: Urinary tract infection type: U Hematuria presence: H Indwelling urinary catheter type: I Encounter type: E Status: Acute Plan: UA
[2017-05-03] MEDS: ZESTRIL TAB 20 MG PO SCH ×2 (17:46→21:11)
[2017-05-03] MEDS ORDERED: HYDROGEN PEROXIDE 3% ONE (18:31)
[2017-05-03] MEDS: LANTUS SC SCH (21:08)
[2017-05-03] MEDS: PRAVACHOL PO SCH (21:09)
[2017-05-03] MEDS: ZyrTEC TAB 10 MG PO SCH (21:09)
[2017-05-03] MEDS: COLACE CAP 100 MG PO SCH (21:09)
[2017-05-03] MEDS: MILK OF MAGNESIA PO SCH (21:10)
[2017-05-03] MEDS: KLONOPIN TAB 0.5 MG PO SCH (21:10)
[2017-05-03] MEDS: SNACK - Diabetic Appropriate PO SCH (21:11)
[2017-05-03] MEDS: LEVAQUIN PREMIX IV 250 MG 250 MG/50 ML BAG IV SCH (21:18)
[2017-05-03] MEDS: XANAX PO PRN (23:53)
[2017-05-04] MEDS: NORCO 7.5/325 MG TAB PO PRN ×2 (03:59→22:24)
[2017-05-04] MEDS: NS 1000 ML 1,000 ML IV SCH ×2 (04:00→16:55)
[2017-05-04 05:17] LABS: ALANINE AMINOTRANSFERASE 27 Units/L (12-78); ALBUMIN 2.8 g/dL (3.4-5.0); ALKALINE PHOSPHATASE 67 Units/L (46-116); ASPARTATE AMINO TRANSFERASE 20 Units/L (15-37); BLOOD UREA NITROGEN 14 mg/dL (7-18); CALCIUM 9.1 mg/dL (8.5-10.1); CARBON DIOXIDE 27.9 mmol/L (21-32); CHLORIDE 109 mmol/L (98-107); COR CA(FOR HYPOALB) 10.1 mg/dL (8.5-10.1); COR NA(FOR HYPERGLY) 146 mmol/L (136-145); CREATININE 1.03 mg/dL (0.55-1.02); GLUCOSE 130 mg/dL (65-99); SODIUM 145 mmol/L (136-145); TOTAL PROTEIN 6.1 g/dL (6.4-8.2); eGFR BLACK RACES > 60 (>60); eGFR NON BLACK RACES 54 (>60)
[2017-05-04 05:32] LABS: BASOPHILS % (AUTO) 0.6 % (0.2-1.0); EOSINOPHILS # (AUTO) 0.4 x10^3/uL (0.0-0.2); EOSINOPHILS % (AUTO) 6.5 % (0.9-2.9); HEMATOCRIT 31.4 % (36.0-47.0); HEMOGLOBIN 10.9 g/dL (12.0-16.0); LYMPHOCYTES # (AUTO) 1.1 X10^3/uL (1.3-2.9); LYMPHOCYTES % (AUTO) 19.1 % (21.0-51.0); MEAN CORPUSCULAR HEMOGLOBIN 31.2 pg (27.0-34.0); MEAN CORPUSCULAR HGB CONC 34.7 g/dL (33.0-35.0); MEAN PLATELET VOLUME 7.9 fL (7.4-11.0); MONOCYTES # (AUTO) 0.5 x10^3/uL (0.3-0.8); MONOCYTES % (AUTO) 9.3 % (0.0-13.0); NEUTROPHILS # (AUTO) 3.8 x10^3/uL (2.2-4.8); NEUTROPHILS % (AUTO) 64.5 % (42.0-75.0); PLATELET COUNT 211 X10^3/uL (150.0-450.0); RED BLOOD COUNT 3.48 X10^6/uL (3.5-5.4); WHITE BLOOD COUNT 5.9 X10^3/uL (3.6-10.0)
[2017-05-04] MEDS: PROzac PO SCH (09:07)
[2017-05-04] MEDS: DITROPAN TAB 5 MG PO SCH ×2 (09:07→22:25)
[2017-05-04] MEDS: COREG TAB 25 MG PO SCH ×2 (09:08→22:27)
[2017-05-04] MEDS: ZANTAC PO SCH ×2 (09:08→22:25)
[2017-05-04] MEDS: CLARITIN PO SCH (09:08)
[2017-05-04] MEDS: NexIUM PO SCH (09:08)
[2017-05-04] MEDS ORDERED: ZESTRIL TAB 20 MG ONE (09:58)
[2017-05-04] MEDS ORDERED: ZESTRIL TAB 20 MG PO SCH (10:00)
[2017-05-04] MEDS: ZESTRIL TAB 40 MG PO SCH ×2 (12:32→22:24)
--- NOTE | 2017-05-04 13:29 | PCM.PROG ---
Progress Note - Progress Note for Day of Date: 05/04/17 - Subjective Subjective: Patient is a 86 yo female who was admitted to the hospital for Hyperglycemia, Dehydration and generalized weakness. This am the patient is confused and has been noted to be having some hypertension despite her clonidine patch and starting Lisinopril 20mg daily yesterday. Blood pressure this am is 220/100 and has been increased throughout the night. we are going to increase her Lisinopril to 20mg PO BID. [facility] has accepted patient as family is ok with this. Once her blood pressure is stable we will discharge her to [facility] in [facility]. Vital signs this am 98.3, 59, 20, 94%, 220/ 100. Labs are within normal limits with the exception of RBC 3.48, Hgb 10.9, Hct 31.4, Lymph% 19.1, Eos% 6.5, Lymph 1.1, Eos# 0.4, Chloride 109, Creatinine 1.03, Est GFR 54, Glucose 130, Total Protein 6.1, Albumin 2.8, Albumin/Globulin Ratio 0.8. We will continue to monitor patient blood pressure and follow up in the am with repeat labs. - Past Medical Family Social History Past Med/Fam/Surg Hx: No changes since H&P Allergies: Allergies MS Penicillins [Penicillins] Allergy (Verified 12/18/16 22:44) MS Zolpidem [From Ambien] Allergy (Verified 12/18/16 22:44) MS Diazepam [From Valium] Adverse Reaction (Verified 12/18/16 22:44) CONFUSION - Review of Systems ROS: No change since H&P - Vital Signs and I&O's Vital Signs: 98.3, 59, 20, 94%, 220/100 Intake and Output: Intake & Output 05/02/17 05/03/17 05/04/17 05/05/17 11:59 11:59 11:59 11:59 Intake Total 660 1788 1831 Output Total 600 1600 Balance 60 188 1831 - Physical Exam Oriented: Not Oriented Eyes: Normal Ear: Normal Nose: Normal Throat: Normal Respiratory: Normal Cardiovascular: Normal : Normal Auscultation: Bowel Sounds: Normal Palpation: Normal Tenderness: Normal Skin: Normal Musculoskeletal: Normal Psychiatric: Normal Mood Description: Calm Affect: Quiet Speech Pattern: Clear, Appropriate - Laboratory and Diagnostics Result Diagrams: 05/04/17 04:10 05/04/17 04:10 Labs: Laboratory WBC 5.9 X10^3/uL (3.6-10.0) 05/04/17 04:10 RBC 3.48 X10^6/uL (3.5-5.4) L 05/04/17 04:10 Hgb 10.9 g/dL (12.0-16.0) L 05/04/17 04:10 Hct 31.4 % (36.0-47.0) L 05/04/17 04:10 MCV 90.0 fL (80.0-100.0) 05/04/17 04:10 MCH 31.2 pg (27.0-34.0) 05/04/17 04:10 MCHC 34.7 g/dL (33.0-35.0) 05/04/17 04:10 RDW 13.0 % (11.6-16.5) 05/04/17 04:10 Plt Count 211 X10^3/uL (150.0-450.0) 05/04/17 04:10 MPV 7.9 fL (7.4-11.0) 05/04/17 04:10 Neut % 64.5 % (42.0-75.0) 05/04/17 04:10 Lymph % 19.1 % (21.0-51.0) L 05/04/17 04:10 [place] % 9.3 % (0.0-13.0) 05/04/17 04:10 Eos % 6.5 % (0.9-2.9) H 05/04/17 04:10 Baso % 0.6 % (0.2-1.0) 05/04/17 04:10 Neut # 3.8 x10^3/uL (2.2-4.8) 05/04/17 04:10 Lymph # 1.1 X10^3/uL (1.3-2.9) L 05/04/17 04:10 [place] # 0.5 x10^3/uL (0.3-0.8) 05/04/17 04:10 Eos # 0.4 x10^3/uL (0.0-0.2) H 05/04/17 04:10 Baso # 0.0 X10^3/uL (0.0-0.1) 05/04/17 04:10 Absolute Nucleated RBC 0.0 /100WBC 05/04/17 04:10 INR Target Range - 05/02/17 04:45 INR 1.36 (0.8-1.3) H 05/02/17 04:45 PTT 39.6 SECONDS (22.9-36.5) H 05/02/17 04:45 PTT Comment - 05/02/17 04:45 Sodium 145 mmol/L (136-145) 05/04/17 04:10 Corrected Sodium 146 mmol/L (136-145) H 05/04/17 04:10 Potassium 3.7 mmol/L (3.5-5.1) 05/04/17 04:10 Chloride 109 mmol/L (98-107) H 05/04/17 04:10 Carbon Dioxide 27.9 mmol/L (21-32) 05/04/17 04:10 BUN 14 mg/dL (7-18) 05/04/17 04:10 Creatinine 1.03 mg/dL (0.55-1.02) H 05/04/17 04:10 Est GFR (MDRD) Af Amer > 60 (>60) 05/04/17 04:10 Est GFR (MDRD) Non-Af 54 (>60) L 05/04/17 04:10 Glucose 130 mg/dL (65-99) H 05/04/17 04:10 Calcium 9.1 mg/dL (8.5-10.1) 05/04/17 04:10 Corrected Calcium 10.1 mg/dL (8.5-10.1) 05/04/17 04:10 Magnesium 1.7 mg/dL (1.7-2.9) 05/02/17 04:45 Total Bilirubin 0.30 mg/dL (0.2-1.0) 05/04/17 04:10 AST 20 Units/L (15-37) 05/04/17 04:10 ALT 27 Units/L (12-78) 05/04/17 04:10 Alkaline Phosphatase 67 Units/L (46-116) 05/04/17 04:10 Creatine Kinase 61 Units/L (26-192) 05/02/17 04:45 CK-MB (CK-2) < 1.0 ng/mL (0-4.0) 05/02/17 04:45 CK/CKMB % Calc 1.6 % (<4) 05/02/17 04:45 Troponin I < 0.02 ng/mL (0-1.5) 05/02/17 04:45 Total Protein 6.1 g/dL (6.4-8.2) L 05/04/17 04:10 Albumin 2.8 g/dL (3.4-5.0) L 05/04/17 04:10 Globulin 3.3 g/dL (2.5-4.5) 05/04/17 04:10 Albumin/Globulin Ratio 0.8 Ratio (1.1-2.1) L 05/04/17 04:10 Specimen Type Clean catch urine 05/01/17 19:17 Urine Color Yellow (YELLOW) 05/01/17 19:17 Urine Appearance Slightly hazy (CLEAR) 05/01/17 19:17 Urine pH 5.0 (5.0 - 8.0) 05/01/17 19:17 Ur Specific [place] 1.015 (1.000-1.030) 05/01/17 19:17 Urine Protein 2+ (NEGATIVE) 05/01/17 19:17 Urine Glucose (UA) Negative (NEGATIVE) 05/01/17 19:17 Urine Ketones Negative (NEGATIVE) 05/01/17 19:17 Urine Occult Blood 2+ (NEGATIVE) 05/01/17 19:17 Urine Nitrite Negative (NEGATIVE) 05/01/17 19:17 Urine Bilirubin Negative (NEGATIVE) 05/01/17 19:17 Urine Urobilinogen Normal (NORMAL) 05/01/17 19:17 Ur Leukocyte Esterase 3+ (NEGATIVE) 05/01/17 19:17 Urine RBC 0 - 4 /HPF (NEGATIVE) 05/01/17 19:17 Urine WBC 30 - 40 with clumps /HPF (NEGATIVE) 05/01/17 19:17 Ur Squamous Epith Cells Many /HPF (NEGATIVE) 05/01/17 19:17 Amorphous Sediment Trace /HPF (NEGATIVE) 05/01/17 19:17 Urine Bacteria Trace /HPF (NEGATIVE) 05/01/17 19:17 Hyaline Casts Moderate /LPF (NEGATIVE) 05/01/17 19:17 Ur Culture Indicated? Yes/culture set up 05/01/17 19:17 Acetone, Semi-Quant Negative (NEGATIVE) 05/01/17 17:50 - Plan (1) Hypertension Status: Acute Qualifiers: Hypertension type: H Plan: continue catapress patch 0.3, lisinopril 20mg BID (2) Hyperlipidemia Status: Acute Qualifiers: Hyperlipidemia type: H Plan: continue pravachol (3) Hyperglycemia Status: Acute Plan: OTBS ACHS Lantus 25units at bedtime (4) Anxiety Status: Chronic Plan: continue xanax (5) UTI (urinary tract infection) Status: Acute Qualifiers: Urinary tract infection type: U Hematuria presence: H Indwelling urinary catheter type: I Encounter type: E Plan: Levaquin 250mg IV DAily
[2017-05-04] MEDS: CHECK PATCH XX SCH ×2 (15:58→22:26)
[2017-05-04] MEDS: LEVAQUIN PREMIX IV 250 MG 250 MG/50 ML BAG IV SCH (22:23)
[2017-05-04] MEDS: ZyrTEC TAB 10 MG PO SCH (22:25)
[2017-05-04] MEDS: PRAVACHOL PO SCH (22:25)
[2017-05-04] MEDS: KLONOPIN TAB 0.5 MG PO SCH (22:25)
[2017-05-04] MEDS: SNACK - Diabetic Appropriate PO SCH (22:26)
[2017-05-04] MEDS: COLACE CAP 100 MG PO SCH (22:26)
[2017-05-04] MEDS: LANTUS SC SCH (22:28)
[2017-05-04] MEDS: MILK OF MAGNESIA PO SCH (22:29)
[2017-05-05] MEDS: NS 1000 ML 1,000 ML IV SCH ×2 (02:19→06:19)
[2017-05-05 05:31] LABS: ALANINE AMINOTRANSFERASE 24 Units/L (12-78); ALBUMIN 2.6 g/dL (3.4-5.0); ALKALINE PHOSPHATASE 61 Units/L (46-116); ASPARTATE AMINO TRANSFERASE 16 Units/L (15-37); BLOOD UREA NITROGEN 17 mg/dL (7-18); CALCIUM 8.4 mg/dL (8.5-10.1); CARBON DIOXIDE 27.3 mmol/L (21-32); CHLORIDE 109 mmol/L (98-107); COR CA(FOR HYPOALB) 9.5 mg/dL (8.5-10.1); CREATININE 1.06 mg/dL (0.55-1.02); GLUCOSE 102 mg/dL (65-99); SODIUM 143 mmol/L (136-145); TOTAL PROTEIN 5.6 g/dL (6.4-8.2); eGFR BLACK RACES > 60 (>60); eGFR NON BLACK RACES 52 (>60)
[2017-05-05 05:44] LABS: BASOPHILS % (AUTO) 0.6 % (0.2-1.0); EOSINOPHILS # (AUTO) 0.5 x10^3/uL (0.0-0.2); EOSINOPHILS % (AUTO) 6.2 % (0.9-2.9); HEMATOCRIT 29.8 % (36.0-47.0); HEMOGLOBIN 10.4 g/dL (12.0-16.0); LYMPHOCYTES # (AUTO) 1.4 X10^3/uL (1.3-2.9); LYMPHOCYTES % (AUTO) 18.8 % (21.0-51.0); MEAN CORPUSCULAR HEMOGLOBIN 31.4 pg (27.0-34.0); MEAN CORPUSCULAR HGB CONC 34.9 g/dL (33.0-35.0); MEAN CORPUSCULAR VOLUME 89.8 fL (80.0-100.0); MEAN PLATELET VOLUME 7.7 fL (7.4-11.0); MONOCYTES # (AUTO) 0.7 x10^3/uL (0.3-0.8); MONOCYTES % (AUTO) 8.9 % (0.0-13.0); NEUTROPHILS # (AUTO) 4.9 x10^3/uL (2.2-4.8); NEUTROPHILS % (AUTO) 65.5 % (42.0-75.0); PLATELET COUNT 203 X10^3/uL (150.0-450.0); RED BLOOD COUNT 3.32 X10^6/uL (3.5-5.4); RED CELL DISTRIBUTION WIDTH 13.1 % (11.6-16.5); WHITE BLOOD COUNT 7.5 X10^3/uL (3.6-10.0)
[2017-05-05 08:12] VITALS: BP 192/81
[2017-05-05] MEDS: CLARITIN PO SCH (08:59)
[2017-05-05] MEDS: DITROPAN TAB 5 MG PO SCH (08:59)
[2017-05-05] MEDS: NexIUM PO SCH (08:59)
[2017-05-05] MEDS: PROzac PO SCH (08:59)
[2017-05-05] MEDS: COREG TAB 25 MG PO SCH (08:59)
[2017-05-05] MEDS: ZESTRIL TAB 40 MG PO SCH (08:59)
[2017-05-05] MEDS: ZANTAC PO SCH (08:59)
[2017-05-05] MEDS: CHECK PATCH XX SCH (09:00)
[2017-05-05] MEDS ORDERED: NORVASC TAB 5 MG PO SCH (10:00)
[2017-05-05] MEDS: XANAX PO PRN (10:50)
--- NOTE | 2017-05-05 14:55 | DR.CARTERD ---
- Discharge Summary for: Discharge Summary for Date of:: 05/05/17 - Admission Date Date of Admission: 05/01/17 - Admission Diagnoses Admission Diagnosis: Hyperglycemia. Hypertension. Dehydration. Generalized weakness - Discharge Date Discharge Date: 05/05/17 - Discharge Diagnoses Discharge Diagnosis: Hyperglycemia Hypertension Dehydration Generalized weakness Diabetes Mellitus Type 2 Renal Disease Dementia - Hospital Course Hospital Course: Patient is a 86 yo female who was admitted to the hospital for Hyperglycemia, Dehydration and generalized weakness. Patient also noted to have a urinary tract infection for which she was treated with Levaquin 250mg IV Daily. This am the patient is confused and has been noted to be having some hypertension despite her clonidine patch in place. Family states that she has been having hallucinations and becoming incontinent. They discussed that they would like to see about custodial care home placement. We are going to work with case management to see what her options are and let the family know. We discontinued her methyldopa and respiradone and started her on Lisinopril 20mg at bedtime for her hypertension. Patient continue to remain hypertension Lisinopril increased to 20mg BID. Patient has been accepted to [facility] and her family would like her to be placed there. On the day of discharge patients blood pressure 179/72 we are going to add amlodipine 5mg daily. Patient glucose remained stable throughout the hospitalization the hyperglycemia was likely because of the patients dementia she forgot to take her medication. Patient is being discharged in stable condition to [facility] and [place]. She is to continue [place] 7.5 Po Q6hr PRN, Xanax 0.5 PO BID, Lantus 25units at bedtime, Fluoxetine 10mg daily, coreg 25 PO BID, Klonopin 0.5mg at bedtime, Zyrtec 10mg at bedtime, esomeprazole 40mg daily, Ditropan 10mg at bedtime, Loratidine 10mg daily, pravachol 40mg at bedtime, zantac 150mg BID, Butt cream, Clonidine 0.3 Patch, Lisinopril 20mg BID, amlodipine 5mg PO daily. Labs: Labs this am within normal limits with the exception of RBC 3.32, Hgb 10.4, Hct 29.8, Lymph% 18.8, Eos% 6.2, Neut# 4.9, Eos# 0.5, Chloride 109, Creatinine 1.06 , Est GFR 52, Glucose 102, Calcium 8.4, Total Protein 5.6, Albumin 2.6, Albumin/ Globulin Ratio 0.9 - Discharge Medications Discharge Medications: Alprazolam [XANAX 0.5 MG *] 1 tab PO BID PRN MDD 1mg 05/01/17 [History] Cetirizine HCl [Zyrtec Allergy] 10 mg PO HS 05/01/17 [History] Fluoxetine HCl [FLUOXETINE 10 MG *] 1 cap PO DAILY 05/01/17 [History] Insulin Glargine (Lantus) [LANTUS INSULIN 10 ML VIAL *] 25 units SC HS 05/01/17 [History] Insulin Lispro (Humalog) [HumaLOG INSULIN 10 ML VIAL *] 1 units SC ACHS [History] Oxybutynin Chloride [Ditropan XL] 10 mg PO HS 05/01/17 [History] Clonidine HCl [CATAPRES-TTS patch 0.3 mg/24 hr 7-day *] 1 patch TD WEEKLY [History] Amlodipine Besylate [NORVASC 5 MG *] 5 mg PO DAILY #60 tab 05/05/17 [Rx] Hydrocodone-Acet 7.5 mg/325 mg [NORCO 7.5 MG/325 MG *] 1 tab PO Q6H PRN #90 tab 05/05/17 [Rx] Lisinopril [ZESTRIL *] 40 mg PO BID #60 tab 05/05/17 [Rx] - Discharge Disposition Discharge Disposition: [facility]
== END 2017-05-05 11:00 ==
LOC: ER 17:21 → MED/SURG 19:40
PROVIDERS: ADMIT Internal Medicine; ATTEND Internal Medicine
DX: E11.65 Type 2 diabetes mellitus with hyperglycemia (principal); I10 Essential (primary) hypertension; E86.0 Dehydration; R53.1 Weakness; I25.10 Atherosclerotic heart disease of native coronary artery without angina pectoris; F32.89 Other specified depressive episodes; E78.2 Mixed hyperlipidemia; N39.0 Urinary tract infection, site not specified; F41.8 Other specified anxiety disorders; D64.89 Other specified anemias; R79.1 Abnormal coagulation profile; R26.89 Other abnormalities of gait and mobility; R13.11 Dysphagia, oral phase; Z79.4 Long term (current) use of insulin
CPT/HCPCS: 36415; 71020; 80053; 81001; 82009; 82550; 82553; 83735; 84484; 85025; 85610; 85730; 87086; 93005; 94760; 96365; 97535; 99282; A4222; G8978; G8979; G8987; G8988; G8996; G8997; G0378; J1815; J1956

== ENCOUNTER 2017-06-03 09:40 | Inpatient (IN) | payer OTHER ==
[2017-06-03] MEDS ORDERED: PHARMACY CONSULT - DOSE _____ XX SCH (10:56)
[2017-06-03] MEDS ORDERED: TUSSIONEX PENNKINETIC SUSP PO PRN (10:56)
[2017-06-03 11:07] VITALS: BMI 24.2
[2017-06-03 11:29] LABS: BILIRUBIN,URINE NEGATIVE (NEGATIVE); BLOOD/HEMOGLOBIN,URINE 1+ (NEGATIVE); GLUCOSE, URINE NEGATIVE (NEGATIVE); KETONES,URINE NEGATIVE (NEGATIVE); LEUKOCYTE ESTERASE ,URINE 3+ (NEGATIVE); NITRITES,URINE NEGATIVE (NEGATIVE); PROTEIN,URINE 1+ (NEGATIVE); UROBILINOGEN,URINE NORMAL (NORMAL)
[2017-06-03 11:37] LABS: APPEARANCE,URINE HAZY (CLEAR); BACTERIA,URINE TRACE /HPF (NEGATIVE); COLOR,URINE YELLOW (YELLOW); RBC,URINE 0-2 /HPF (NEGATIVE); SQUAMOUS EPITHELIAL CELL,UR FEW /HPF (NEGATIVE)
[2017-06-03 11:40] LABS: ALBUMIN 3.1 g/dL (3.4-5.0); CALCIUM 8.7 mg/dL (8.5-10.1); COR CA(FOR HYPOALB) 9.4 mg/dL (8.5-10.1); CREATININE 1.94 mg/dL (0.55-1.02); TOTAL PROTEIN 6.6 g/dL (6.4-8.2)
[2017-06-03 11:44] LABS: BASOPHILS % (AUTO) 0.4 % (0.2-1.0); EOSINOPHILS # (AUTO) 0.4 x10^3/uL (0.0-0.2); EOSINOPHILS % (AUTO) 3.9 % (0.9-2.9); HEMOGLOBIN 10.6 g/dL (12.0-16.0); LYMPHOCYTES # (AUTO) 1.4 X10^3/uL (1.3-2.9); LYMPHOCYTES % (AUTO) 12.7 % (21.0-51.0); MEAN CORPUSCULAR HEMOGLOBIN 31.4 pg (27.0-34.0); MEAN CORPUSCULAR HGB CONC 34.2 g/dL (33.0-35.0); MEAN CORPUSCULAR VOLUME 91.7 fL (80.0-100.0); MEAN PLATELET VOLUME 8.6 fL (7.4-11.0); MONOCYTES # (AUTO) 0.6 x10^3/uL (0.3-0.8); NEUTROPHILS # (AUTO) 8.2 x10^3/uL (2.2-4.8); PLATELET COUNT 216 X10^3/uL (150.0-450.0); RED BLOOD COUNT 3.38 X10^6/uL (3.5-5.4); RED CELL DISTRIBUTION WIDTH 12.9 % (11.6-16.5); WHITE BLOOD COUNT 10.6 X10^3/uL (3.6-10.0)
[2017-06-03] MEDS ORDERED: DUONEB 0.5 MG/3 MG ONE (12:03)
--- NOTE | 2017-06-03 12:05 | RAD ---
HISTORY: Pneumonia Study: Chest two views Comparison: May 03, 2017 Findings: The trachea is midline. The cardiac silhouette is enlarged. No congestive heart failure is noted. T he aorta is calcified.. The lungs are clear without focal infiltrate or effusion. The bony thorax is unremarkable. IMPRESSION: 1. Cardiomegaly without congestive heart failure 2. No infiltrates Reported By:
[2017-06-03] MEDS: DUONEB 0.5 MG/3 MG NEB SCH ×3 (12:10→21:15)
[2017-06-03] MEDS ORDERED: NS 1/2 1000 ML IV 1,000 ML IV ONE (12:30)
[2017-06-03] MEDS: ROBITUSSIN DM PO SCH ×3 (12:40→20:53)
[2017-06-03] MEDS: NS 1/2 1000 ML IV 1,000 ML IV SCH (12:40)
[2017-06-03] MEDS ORDERED: LEVAQUIN PREMIX IV 750 MG 750 MG/150 ML BAG IV ONE (13:00)
[2017-06-03] MEDS: ZANTAC PO SCH (20:53)
[2017-06-03] MEDS: COREG TAB 25 MG PO SCH (20:53)
[2017-06-03] MEDS: ZESTRIL TAB 40 MG PO SCH (20:53)
[2017-06-03] MEDS: ZyrTEC TAB 10 MG PO SCH (20:53)
[2017-06-03] MEDS: PATIENT'S HOME MEDICATION PO SCH (20:59)
[2017-06-03] MEDS ORDERED: PATIENT'S HOME MEDICATION (Risperidone [Risperidone] 1 TAB) PO SCH (21:00)
[2017-06-03] MEDS ORDERED: PATIENT'S HOME MEDICATION (Cetirizine Hcl [Zyrtec] 1 TAB) PO SCH (21:00)
[2017-06-04] MEDS ORDERED: NS 1/2 1000 ML IV 1,000 ML IV ONE ×2 (01:21→16:14)
[2017-06-04] MEDS: NS 1/2 1000 ML IV 1,000 ML IV SCH ×2 (01:27→15:19)
[2017-06-04] MEDS: DUONEB 0.5 MG/3 MG NEB SCH ×6 (01:47→21:08)
[2017-06-04 05:07] LABS: BASOPHILS % (AUTO) 0.5 % (0.2-1.0); EOSINOPHILS # (AUTO) 0.7 x10^3/uL (0.0-0.2); EOSINOPHILS % (AUTO) 9.4 % (0.9-2.9); HEMATOCRIT 32.9 % (36.0-47.0); HEMOGLOBIN 11.1 g/dL (12.0-16.0); LYMPHOCYTES # (AUTO) 1.3 X10^3/uL (1.3-2.9); LYMPHOCYTES % (AUTO) 17.5 % (21.0-51.0); MEAN CORPUSCULAR HEMOGLOBIN 31.3 pg (27.0-34.0); MEAN CORPUSCULAR HGB CONC 33.7 g/dL (33.0-35.0); MEAN CORPUSCULAR VOLUME 92.7 fL (80.0-100.0); MEAN PLATELET VOLUME 8.5 fL (7.4-11.0); MONOCYTES # (AUTO) 0.7 x10^3/uL (0.3-0.8); MONOCYTES % (AUTO) 9.6 % (0.0-13.0); NEUTROPHILS # (AUTO) 4.7 x10^3/uL (2.2-4.8); PLATELET COUNT 209 X10^3/uL (150.0-450.0); RED BLOOD COUNT 3.54 X10^6/uL (3.5-5.4); WHITE BLOOD COUNT 7.5 X10^3/uL (3.6-10.0)
[2017-06-04 05:16] LABS: ALBUMIN 2.9 g/dL (3.4-5.0); CALCIUM 8.6 mg/dL (8.5-10.1); CARBON DIOXIDE 29.7 mmol/L (21-32); COR CA(FOR HYPOALB) 9.5 mg/dL (8.5-10.1); CREATININE 1.43 mg/dL (0.55-1.02); TOTAL PROTEIN 6.4 g/dL (6.4-8.2)
--- NOTE | 2017-06-04 06:23 | RAD ---
HISTORY: Shortness of breath Study: Two-view chest Comparison: June 03, 2017 Findings: Trachea is midline. There is cardiomegaly with aortic uncoiling. There is hyperinflation of the lung s with increased interstitial markings. In the appropriate clinical setting findings may indicate CO PD. No infiltrate, CHF, pleural fluid or pneumothorax is seen. No acute osseous changes are seen. Th ere is evidence of rotator cuff insufficiency on the right. IMPRESSION: COPD without acute abnormality. Hypertensive configuration. Reported By:
--- NOTE | 2017-06-04 10:46 | DR.UPDATE ---
H&P Update History and Physical Update: WAS SEEN IN OUR OFFICE TODAY. A H&P WAS COMPLETED PRIOR TO ADMISSION. PATIENT HAS BEEN SEEN AND EXAMINED WITH NO CHANGES NOTED. Changes noted: NO Yes with the following:
[2017-06-04] MEDS: ZESTRIL TAB 40 MG PO SCH ×2 (11:43→20:44)
[2017-06-04] MEDS: NexIUM PO SCH (11:43)
[2017-06-04] MEDS: ZANTAC PO SCH ×2 (11:44→20:45)
[2017-06-04] MEDS: PRAVACHOL PO SCH (11:44)
[2017-06-04] MEDS: PROzac PO SCH (11:44)
[2017-06-04] MEDS: COREG TAB 25 MG PO SCH ×2 (11:44→20:45)
[2017-06-04] MEDS: ROBITUSSIN DM PO SCH ×4 (11:44→20:45)
[2017-06-04] MEDS: HumaLOG SC SCH ×2 (13:48→17:17)
[2017-06-04] MEDS: PATIENT'S HOME MEDICATION PO SCH (20:45)
[2017-06-04] MEDS: ZyrTEC TAB 10 MG PO SCH (20:45)
[2017-06-04] MEDS: LANTUS SC SCH (20:48)
[2017-06-04] MEDS: SNACK - Diabetic Appropriate PO SCH (20:54)
--- NOTE | 2017-06-04 21:18 | PCM.PROG ---
Progress Note - Progress Note for Day of Date: 06/04/17 - Subjective Subjective: IS A PATIENT OF OURS WHO WAS DIRECT ADMITTED FROM OUR OFFICE YESTERDAY FOR BRONCHOPNEUMONIA. SHE WAS AWAKE AND ORIENTED ON MORNING ROUNDS, SITTING ON SIDE OF BED. SHE HAD COMPLAINTS OF SHORTNESS OF BREATH AND PRODUCTIVE COUGH. LUNGS WERE NOTED WITH BILATERL WHEEZING ON AUSCULTATION. VITALS THIS AM WERE 98.6, 84, 20, 97%, 161/70. CBC WAS WNL EXCEPT HGB 11.1, HCT 32.9. CMP WNL EXCEPT CHLORIDE 108, CREATININE 1.43, GLUCOSE 119, AST 14, ALBUMIN 2.9. CHEST XRAY REPORTED COPD WITHOUT ACUTE ABNORMALITY AND HYPERTENSIVE CONFIGURATION. BLOOD CULTURES AND SPUTUM CULTURES ARE PENDING. WE WILL CONTINUE CURRENT PLAN OF TREATMENT. WE WILL RECHECK LABS AND XRAY AND FOLLOW UP WITH PATIENT IN AM. - Past Medical Family Social History Past Med/Fam/Surg Hx: No changes since H&P Allergies: Allergies Penicillins Allergy (Verified 06/03/17 12:13) zolpidem Allergy (Verified 06/03/17 12:13) diazepam Adverse Reaction (Verified 06/03/17 12:13) CONFUSION - Review of Systems ROS: No change since H&P - Vital Signs and I&O's Vital Signs: Temperature 98.6 F Pulse Rate [Left Brachial] 78 Pulse Rate 80 Respiratory Rate 18 Blood Pressure [Right Arm] 129/61 Blood Pressure [Left Femoral 129/56 Artery] Blood Pressure [Left Arm] 151/67 Blood Pressure 192/81 O2 Sat by Pulse Oximetry 94 Intake and Output: Intake & Output 06/02/17 06/03/17 06/04/17 06/05/17 11:59 11:59 11:59 11:59 Intake Total 479 220 Output Total 700 Balance -221 220 - Physical Exam Oriented: Normal. negative: Time, Person, Place, Not Oriented, Unable to test, Other Eyes: Normal. negative: Blurred Vision, Diplopia, Discharge, Pain, Redness, Photophobia, Other Ear: Normal. negative: Right, Left, Swelling, Ecchymosis, Hemotypanum, Abrasion , Laceration Nose: Normal. negative: Injected, Discharge, Blood, Other Throat: Normal. negative: Tonsillar Hypertrophy, Red, Exudate, Dry, Other Respiratory: Right, Left, Generalized, Wheezes Cardiovascular: Normal. negative: Tachycardia, Bradycardia, Irregular, S3, S4, Systolic, Diastolic, Murmur, Edema, Other : Normal. negative: Dysuria, Hematuria, Frequency, Discharge, Testicular Pain , Bleeding, , Other Auscultation: Bowel Sounds: Normal. negative: Bruit, Absent, Increased, Decreased, High Pitched, Other Palpation: Normal Tenderness: Normal. negative: Diffuse, RUQ, RLQ, LUQ, LLQ, Epigastric, Periumbilical, Suprapubic, Mild, Moderate, Severe, Rebound, Guarding, Rigidity, Other Skin: Normal. negative: Decreased Turgur, Rash, Papular, Macular, Maculopapular , Vesicular, Pustular, Petechial, Red, Tender, Hot, Diaphoresis, Wound, Bruising , Ecchymosis, Other Musculoskeletal: Normal. negative: Right, Left, Shoulder, Clavicle, Arm, Elbow , Forearm, Wrist, Hand, Hip, Thigh, Knee, Leg, Ankle, Foot, Back:Thoracic, Back: Lumbar, Back:Midline, Back:Paraspinous, Pelvis, Swelling, Tender, Deformity, Pulse Deficit, Motor Deficit, Sensory Deficit, Instability, Crepitance Psychiatric: Normal Mood Description: Calm Affect: Normal Speech Pattern: Clear, Appropriate - Laboratory and Diagnostics Result Diagrams: 06/04/17 04:10 06/04/17 04:10 Labs: 06/03/17 12:49 Sputum - Expectorated Sputum Sputum Culture - Preliminary 06/03/17 12:49 Sputum - Expectorated Sputum - Final Laboratory WBC 7.5 X10^3/uL (3.6-10.0) 06/04/17 04:10 RBC 3.54 X10^6/uL (3.5-5.4) 06/04/17 04:10 Hgb 11.1 g/dL (12.0-16.0) L 06/04/17 04:10 Hct 32.9 % (36.0-47.0) L 06/04/17 04:10 MCV 92.7 fL (80.0-100.0) 06/04/17 04:10 MCH 31.3 pg (27.0-34.0) 06/04/17 04:10 MCHC 33.7 g/dL (33.0-35.0) 06/04/17 04:10 RDW 13.0 % (11.6-16.5) 06/04/17 04:10 Plt Count 209 X10^3/uL (150.0-450.0) 06/04/17 04:10 MPV 8.5 fL (7.4-11.0) 06/04/17 04:10 Neut % 63.0 % (42.0-75.0) 06/04/17 04:10 Lymph % 17.5 % (21.0-51.0) L 06/04/17 04:10 [place] % 9.6 % (0.0-13.0) 06/04/17 04:10 Eos % 9.4 % (0.9-2.9) H 06/04/17 04:10 Baso % 0.5 % (0.2-1.0) 06/04/17 04:10 Neut # 4.7 x10^3/uL (2.2-4.8) 06/04/17 04:10 Lymph # 1.3 X10^3/uL (1.3-2.9) 06/04/17 04:10 [place] # 0.7 x10^3/uL (0.3-0.8) 06/04/17 04:10 Eos # 0.7 x10^3/uL (0.0-0.2) H 06/04/17 04:10 Baso # 0.0 X10^3/uL (0.0-0.1) 06/04/17 04:10 Absolute Nucleated RBC 0.0 /100WBC 06/04/17 04:10 Sodium 143 mmol/L (136-145) 06/04/17 04:10 Corrected Sodium 143 mmol/L (136-145) 06/04/17 04:10 Potassium 4.2 mmol/L (3.5-5.1) 06/04/17 04:10 Chloride 108 mmol/L (98-107) H 06/04/17 04:10 Carbon Dioxide 29.7 mmol/L (21-32) 06/04/17 04:10 BUN 18 mg/dL (7-18) 06/04/17 04:10 Creatinine 1.43 mg/dL (0.55-1.02) H 06/04/17 04:10 Est GFR (MDRD) Af Amer 45 (>60) L 06/04/17 04:10 Est GFR (MDRD) Non-Af 37 (>60) L 06/04/17 04:10 Glucose 119 mg/dL (65-99) H 06/04/17 04:10 Calcium 8.6 mg/dL (8.5-10.1) 06/04/17 04:10 Corrected Calcium 9.5 mg/dL (8.5-10.1) 06/04/17 04:10 Total Bilirubin 0.20 mg/dL (0.2-1.0) 06/04/17 04:10 AST 14 Units/L (15-37) L 06/04/17 04:10 ALT 22 Units/L (12-78) 06/04/17 04:10 Alkaline Phosphatase 73 Units/L (46-116) 06/04/17 04:10 Total Protein 6.4 g/dL (6.4-8.2) 06/04/17 04:10 Albumin 2.9 g/dL (3.4-5.0) L 06/04/17 04:10 Globulin 3.5 g/dL (2.5-4.5) 06/04/17 04:10 Albumin/Globulin Ratio 0.8 Ratio (1.1-2.1) L 06/04/17 04:10 Specimen Type Clean catch urine 06/03/17 11:21 Urine Color Yellow (YELLOW) 06/03/17 11:21 Urine Appearance Hazy (CLEAR) 06/03/17 11:21 Urine pH 6.0 (5.0 - 8.0) 06/03/17 11:21 Ur Specific [place] 1.010 (1.000-1.030) 06/03/17 11:21 Urine Protein 1+ (NEGATIVE) 06/03/17 11:21 Urine Glucose (UA) Negative (NEGATIVE) 06/03/17 11:21 Urine Ketones Negative (NEGATIVE) 06/03/17 11:21 Urine Occult Blood 1+ (NEGATIVE) 06/03/17 11:21 Urine Nitrite Negative (NEGATIVE) 06/03/17 11:21 Urine Bilirubin Negative (NEGATIVE) 06/03/17 11:21 Urine Urobilinogen Normal (NORMAL) 06/03/17 11:21 Ur Leukocyte Esterase 3+ (NEGATIVE) 06/03/17 11:21 Urine RBC 0-2 /HPF (NEGATIVE) 06/03/17 11:21 Urine WBC 0-2 /HPF (NEGATIVE) 06/03/17 11:21 Ur Squamous Epith Cells Few /HPF (NEGATIVE) 06/03/17 11:21 Urine Bacteria Trace /HPF (NEGATIVE) 06/03/17 11:21 Ur Culture Indicated? No/not indicated 06/03/17 11:21 - Plan (1) Bronchopneumonia Status: Acute Plan: PNEUMONIA PROTOCOL, DUONEBS Q4H, LEVAQUIN IV Q48H, RECHECK CHEST XRAY AND LABS, CONTINUE TO MONITOR PATIENT.
[2017-06-05] MEDS: DUONEB 0.5 MG/3 MG NEB SCH ×6 (00:24→21:44)
[2017-06-05 05:18] LABS: BASOPHILS % (AUTO) 0.5 % (0.2-1.0); EOSINOPHILS # (AUTO) 0.6 x10^3/uL (0.0-0.2); EOSINOPHILS % (AUTO) 7.4 % (0.9-2.9); HEMATOCRIT 34.3 % (36.0-47.0); HEMOGLOBIN 11.8 g/dL (12.0-16.0); LYMPHOCYTES # (AUTO) 1.3 X10^3/uL (1.3-2.9); LYMPHOCYTES % (AUTO) 16.8 % (21.0-51.0); MEAN CORPUSCULAR HEMOGLOBIN 30.9 pg (27.0-34.0); MEAN CORPUSCULAR HGB CONC 34.3 g/dL (33.0-35.0); MEAN CORPUSCULAR VOLUME 90.2 fL (80.0-100.0); MEAN PLATELET VOLUME 8.2 fL (7.4-11.0); MONOCYTES # (AUTO) 0.7 x10^3/uL (0.3-0.8); MONOCYTES % (AUTO) 8.8 % (0.0-13.0); NEUTROPHILS # (AUTO) 5.1 x10^3/uL (2.2-4.8); NEUTROPHILS % (AUTO) 66.5 % (42.0-75.0); PLATELET COUNT 229 X10^3/uL (150.0-450.0); RED CELL DISTRIBUTION WIDTH 12.9 % (11.6-16.5); WHITE BLOOD COUNT 7.6 X10^3/uL (3.6-10.0)
[2017-06-05 05:32] LABS: ALBUMIN 3.1 g/dL (3.4-5.0); CALCIUM 8.7 mg/dL (8.5-10.1); CARBON DIOXIDE 27.1 mmol/L (21-32); COR CA(FOR HYPOALB) 9.4 mg/dL (8.5-10.1); CREATININE 1.3 mg/dL (0.55-1.02); TOTAL PROTEIN 6.7 g/dL (6.4-8.2)
[2017-06-05] MEDS ORDERED: NS 1/2 1000 ML IV 1,000 ML IV ONE (05:36)
[2017-06-05] MEDS: NS 1/2 1000 ML IV 1,000 ML IV SCH ×2 (06:11→20:50)
--- NOTE | 2017-06-05 07:46 | RAD ---
HISTORY: Pneumonia with shortness of breath Study: Two-view chest Comparison: Yesterday Findings: The trachea is midline. The cardiac silhouette is stable in size. The lungs demonstrate stable chr onic interstitial changes without focal infiltrate or effusion. without focal infiltrate or effusion . The bony thorax is unremarkable. IMPRESSION: 1. No acute cardiopulmonary disease. Reported By:
[2017-06-05] MEDS: ZANTAC PO SCH ×2 (09:30→20:45)
[2017-06-05] MEDS: COREG TAB 25 MG PO SCH ×2 (09:30→20:46)
[2017-06-05] MEDS: PRAVACHOL PO SCH (09:30)
[2017-06-05] MEDS: ROBITUSSIN DM PO SCH ×4 (09:30→20:47)
[2017-06-05] MEDS: NexIUM PO SCH (09:30)
[2017-06-05] MEDS: PROzac PO SCH (09:30)
[2017-06-05] MEDS: LEVAQUIN PREMIX IV 500 MG 500 MG/100 ML BAG IV SCH (09:30)
[2017-06-05] MEDS: ZESTRIL TAB 40 MG PO SCH ×2 (09:30→20:45)
--- NOTE | 2017-06-05 10:31 | PCM.PROG ---
Progress Note - Progress Note for Day of Date: 06/05/17 - Subjective Subjective: IS A PATIENT OF OURS WHO WAS DIRECT ADMITTED FROM OUR OFFICE TWO DAYS AGO FOR BRONCHOPNEUMONIA. SHE WAS AWAKE AND ORIENTED ON MORNING ROUNDS, LYING IN BED. SHE HAD COMPLAINTS OF SHORTNESS OF BREATH AND PRODUCTIVE COUGH. LUNGS WERE NOTED WITH BILATERL WHEEZING ON AUSCULTATION. VITALS THIS AM WERE 98.0,90,20,98%,147/69. CBC WNL EXCEPT HGB 11.8, HCT 34.3. CMP WNL EXCEPT CHLORIDE 107, CREATININE 1.30, GLUCOSE 146, ALBUMIN 3.1. CHEST XRAY REPORTED NORMAL. BLOOD CULTURES ARE PENDING. WE WILL CONTINUE CURRENT PLAN OF TREATMENT. WE WILL RECHECK LABS AND XRAY AND FOLLOW UP WITH PATIENT IN AM. - Past Medical Family Social History Past Med/Fam/Surg Hx: No changes since H&P Allergies: Allergies Penicillins Allergy (Verified 06/03/17 12:13) zolpidem Allergy (Verified 06/03/17 12:13) diazepam Adverse Reaction (Verified 06/03/17 12:13) CONFUSION - Review of Systems ROS: No change since H&P - Vital Signs and I&O's Vital Signs: Temperature 98 F Pulse Rate [Left Brachial] 95 Pulse Rate 90 Respiratory Rate 20 Blood Pressure [Right Arm] 147/69 Blood Pressure [Left Femoral 129/56 Artery] Blood Pressure [Left Arm] 151/67 Blood Pressure 192/81 O2 Sat by Pulse Oximetry 98 Intake and Output: Intake & Output 06/02/17 06/03/17 06/04/17 06/05/17 11:59 11:59 11:59 11:59 Intake Total 479 560 Output Total 700 Balance -221 560 - Physical Exam Oriented: Normal. negative: Time, Person, Place, Not Oriented, Unable to test, Other Eyes: Normal. negative: Blurred Vision, Diplopia, Discharge, Pain, Redness, Photophobia, Other Ear: Normal. negative: Right, Left, Swelling, Ecchymosis, Hemotypanum, Abrasion , Laceration Nose: Normal. negative: Injected, Discharge, Blood, Other Throat: Normal. negative: Tonsillar Hypertrophy, Red, Exudate, Dry, Other Respiratory: Right, Left, Generalized, Wheezes Cardiovascular: Normal. negative: Tachycardia, Bradycardia, Irregular, S3, S4, Systolic, Diastolic, Murmur, Edema, Other : Normal. negative: Dysuria, Hematuria, Frequency, Discharge, Testicular Pain , Bleeding, , Other Auscultation: Bowel Sounds: Normal. negative: Bruit, Absent, Increased, Decreased, High Pitched, Other Tenderness: Normal. negative: Diffuse, RUQ, RLQ, LUQ, LLQ, Epigastric, Periumbilical, Suprapubic, Mild, Moderate, Severe, Rebound, Guarding, Rigidity, Other Skin: Normal. negative: Decreased Turgur, Rash, Papular, Macular, Maculopapular , Vesicular, Pustular, Petechial, Red, Tender, Hot, Diaphoresis, Wound, Bruising , Ecchymosis, Other Musculoskeletal: Normal. negative: Right, Left, Shoulder, Clavicle, Arm, Elbow , Forearm, Wrist, Hand, Hip, Thigh, Knee, Leg, Ankle, Foot, Back:Thoracic, Back: Lumbar, Back:Midline, Back:Paraspinous, Pelvis, Swelling, Tender, Deformity, Pulse Deficit, Motor Deficit, Sensory Deficit, Instability, Crepitance Psychiatric: Normal Mood Description: Calm Affect: Normal Speech Pattern: Clear, Appropriate - Laboratory and Diagnostics Result Diagrams: 06/05/17 04:40 06/05/17 04:40 Labs: 06/03/17 12:49 Sputum - Expectorated Sputum Sputum Culture - Preliminary 06/03/17 12:49 Sputum - Expectorated Sputum - Final Laboratory WBC 7.6 X10^3/uL (3.6-10.0) 06/05/17 04:40 RBC 3.80 X10^6/uL (3.5-5.4) 06/05/17 04:40 Hgb 11.8 g/dL (12.0-16.0) L 06/05/17 04:40 Hct 34.3 % (36.0-47.0) L 06/05/17 04:40 MCV 90.2 fL (80.0-100.0) 06/05/17 04:40 MCH 30.9 pg (27.0-34.0) 06/05/17 04:40 MCHC 34.3 g/dL (33.0-35.0) 06/05/17 04:40 RDW 12.9 % (11.6-16.5) 06/05/17 04:40 Plt Count 229 X10^3/uL (150.0-450.0) 06/05/17 04:40 MPV 8.2 fL (7.4-11.0) 06/05/17 04:40 Neut % 66.5 % (42.0-75.0) 06/05/17 04:40 Lymph % 16.8 % (21.0-51.0) L 06/05/17 04:40 [place] % 8.8 % (0.0-13.0) 06/05/17 04:40 Eos % 7.4 % (0.9-2.9) H 06/05/17 04:40 Baso % 0.5 % (0.2-1.0) 06/05/17 04:40 Neut # 5.1 x10^3/uL (2.2-4.8) H 06/05/17 04:40 Lymph # 1.3 X10^3/uL (1.3-2.9) 06/05/17 04:40 [place] # 0.7 x10^3/uL (0.3-0.8) 06/05/17 04:40 Eos # 0.6 x10^3/uL (0.0-0.2) H 06/05/17 04:40 Baso # 0.0 X10^3/uL (0.0-0.1) 06/05/17 04:40 Absolute Nucleated RBC 0.0 /100WBC 06/05/17 04:40 Sodium 141 mmol/L (136-145) 06/05/17 04:40 Corrected Sodium 142 mmol/L (136-145) 06/05/17 04:40 Potassium 3.9 mmol/L (3.5-5.1) 06/05/17 04:40 Chloride 107 mmol/L (98-107) 06/05/17 04:40 Carbon Dioxide 27.1 mmol/L (21-32) 06/05/17 04:40 BUN 13 mg/dL (7-18) 06/05/17 04:40 Creatinine 1.30 mg/dL (0.55-1.02) H 06/05/17 04:40 Est GFR (MDRD) Af Amer 50 (>60) L 06/05/17 04:40 Est GFR (MDRD) Non-Af 41 (>60) L 06/05/17 04:40 Glucose 146 mg/dL (65-99) H 06/05/17 04:40 Calcium 8.7 mg/dL (8.5-10.1) 06/05/17 04:40 Corrected Calcium 9.4 mg/dL (8.5-10.1) 06/05/17 04:40 Total Bilirubin 0.30 mg/dL (0.2-1.0) 06/05/17 04:40 AST 17 Units/L (15-37) 06/05/17 04:40 ALT 22 Units/L (12-78) 06/05/17 04:40 Alkaline Phosphatase 78 Units/L (46-116) 06/05/17 04:40 Total Protein 6.7 g/dL (6.4-8.2) 06/05/17 04:40 Albumin 3.1 g/dL (3.4-5.0) L 06/05/17 04:40 Globulin 3.6 g/dL (2.5-4.5) 06/05/17 04:40 Albumin/Globulin Ratio 0.9 Ratio (1.1-2.1) L 06/05/17 04:40 Specimen Type Clean catch urine 06/03/17 11:21 Urine Color Yellow (YELLOW) 06/03/17 11:21 Urine Appearance Hazy (CLEAR) 06/03/17 11:21 Urine pH 6.0 (5.0 - 8.0) 06/03/17 11:21 Ur Specific [place] 1.010 (1.000-1.030) 06/03/17 11:21 Urine Protein 1+ (NEGATIVE) 06/03/17 11:21 Urine Glucose (UA) Negative (NEGATIVE) 06/03/17 11:21 Urine Ketones Negative (NEGATIVE) 06/03/17 11:21 Urine Occult Blood 1+ (NEGATIVE) 06/03/17 11:21 Urine Nitrite Negative (NEGATIVE) 06/03/17 11:21 Urine Bilirubin Negative (NEGATIVE) 06/03/17 11:21 Urine Urobilinogen Normal (NORMAL) 06/03/17 11:21 Ur Leukocyte Esterase 3+ (NEGATIVE) 06/03/17 11:21 Urine RBC 0-2 /HPF (NEGATIVE) 06/03/17 11:21 Urine WBC 0-2 /HPF (NEGATIVE) 06/03/17 11:21 Ur Squamous Epith Cells Few /HPF (NEGATIVE) 06/03/17 11:21 Urine Bacteria Trace /HPF (NEGATIVE) 06/03/17 11:21 Ur Culture Indicated? No/not indicated 06/03/17 11:21 - Plan (1) Bronchopneumonia Status: Acute Plan: PNEUMONIA PROTOCOL, DUONEBS Q4H, LEVAQUIN IV Q48H, RECHECK CHEST XRAY AND LABS, CONTINUE TO MONITOR PATIENT. (2) Depression Status: Chronic Qualifiers: Depression Type: major depressive disorder Major depression recurrence: recurrent Active/Remission status: remission status unspecified Major depression episode severity: M Psychotic features: P Qualified Code(s): F33.9 - Major depressive disorder, recurrent, unspecified Plan: CONTINUE PROZAC, CONTINUE TO MONITOR (3) GERD (gastroesophageal reflux disease) Status: Chronic Qualifiers: Esophagitis presence: esophagitis presence not specified Qualified Code(s) : K21.9 - Gastro-esophageal reflux disease without esophagitis Plan: CONTINUE NEXIUM, CONTINUE TO MONITOR (4) Hyperglycemia Status: Chronic Plan: CONTINUE LANTUS, CHECK OTBS, CONTINUE TO MONITOR (5) Hyperlipidemia Status: Chronic Qualifiers: Hyperlipidemia type: mixed hyperlipidemia Qualified Code(s): E78.2 - Mixed hyperlipidemia Plan: CONTINUE PRAVACHOL, CONTINUE TO MONITOR (6) Hypertension Status: Chronic Qualifiers: Hypertension type: essential hypertension Qualified Code(s): I10 - Essential (primary) hypertension Plan: CONTINUE COREG, CONTINUE LISINOPRIL, CONTINUE TO MONITOR (7) Anxiety Status: Chronic Plan: CONTINUE WITH RISPERDAL, CONTINUE TO MONITOR
[2017-06-05] MEDS: ZyrTEC TAB 10 MG PO SCH (20:45)
[2017-06-05] MEDS: LANTUS SC SCH (20:46)
[2017-06-05] MEDS: SNACK - Diabetic Appropriate PO SCH (20:50)
[2017-06-05] MEDS: PATIENT'S HOME MEDICATION PO SCH (20:51)
[2017-06-06] MEDS: DUONEB 0.5 MG/3 MG NEB SCH ×6 (00:29→21:47)
[2017-06-06] MEDS ORDERED: NS 1/2 1000 ML IV 1,000 ML IV ONE ×2 (01:16→19:32)
[2017-06-06] MEDS: NS 1/2 1000 ML IV 1,000 ML IV SCH ×2 (01:24→19:40)
[2017-06-06 05:15] LABS: ALBUMIN 3.2 g/dL (3.4-5.0); CALCIUM 8.9 mg/dL (8.5-10.1); CARBON DIOXIDE 30.9 mmol/L (21-32); COR CA(FOR HYPOALB) 9.5 mg/dL (8.5-10.1); CREATININE 1.18 mg/dL (0.55-1.02); TOTAL PROTEIN 6.8 g/dL (6.4-8.2)
[2017-06-06 05:18] LABS: BASOPHILS % (AUTO) 0.6 % (0.2-1.0); EOSINOPHILS # (AUTO) 0.3 x10^3/uL (0.0-0.2); EOSINOPHILS % (AUTO) 4.4 % (0.9-2.9); HEMATOCRIT 35.2 % (36.0-47.0); HEMOGLOBIN 11.8 g/dL (12.0-16.0); LYMPHOCYTES # (AUTO) 1.4 X10^3/uL (1.3-2.9); LYMPHOCYTES % (AUTO) 19.3 % (21.0-51.0); MEAN CORPUSCULAR HEMOGLOBIN 30.5 pg (27.0-34.0); MEAN CORPUSCULAR HGB CONC 33.6 g/dL (33.0-35.0); MEAN CORPUSCULAR VOLUME 90.8 fL (80.0-100.0); MEAN PLATELET VOLUME 7.7 fL (7.4-11.0); MONOCYTES # (AUTO) 0.6 x10^3/uL (0.3-0.8); MONOCYTES % (AUTO) 8.9 % (0.0-13.0); NEUTROPHILS # (AUTO) 4.9 x10^3/uL (2.2-4.8); NEUTROPHILS % (AUTO) 66.8 % (42.0-75.0); PLATELET COUNT 256 X10^3/uL (150.0-450.0); RED BLOOD COUNT 3.88 X10^6/uL (3.5-5.4); RED CELL DISTRIBUTION WIDTH 12.9 % (11.6-16.5); WHITE BLOOD COUNT 7.3 X10^3/uL (3.6-10.0)
--- NOTE | 2017-06-06 08:04 | RAD ---
HISTORY: Cough and shortness of breath Study: Two-view chest Comparison: Yesterday Findings: The trachea is midline. The cardiac silhouette is unremarkable. The lungs are clear without focal infiltrate or effusion. The bony thorax is unremarkable. IMPRESSION: 1. No acute cardiopulmonary disease. Reported By:
[2017-06-06] MEDS: ZANTAC PO SCH ×2 (08:48→20:58)
[2017-06-06] MEDS: PROzac PO SCH (08:48)
[2017-06-06] MEDS: COREG TAB 25 MG PO SCH ×2 (08:48→20:59)
[2017-06-06] MEDS: ZESTRIL TAB 40 MG PO SCH ×2 (08:48→20:58)
[2017-06-06] MEDS: NexIUM PO SCH (08:48)
[2017-06-06] MEDS: ROBITUSSIN DM PO SCH ×4 (08:48→20:59)
[2017-06-06] MEDS: PRAVACHOL PO SCH (08:48)
[2017-06-06] MEDS ORDERED: CATAPRES-TTS-3 TD SCH (10:00)
--- NOTE | 2017-06-06 10:32 | PCM.PROG ---
Progress Note - Progress Note for Day of Date: 06/06/17 - Subjective Subjective: IS A PATIENT OF OURS WHO WAS DIRECT ADMITTED FOR BRONCHOPNEUMONIA. SHE WAS AWAKE AND ORIENTED ON MORNING ROUNDS, LYING IN BED. SHE HAD COMPLAINTS OF SHORTNESS OF BREATH AND PRODUCTIVE COUGH. STAFF REPORTS THAT PATIENT HAD BEEN CONFUSED AND AGITATED THROUGHOUT THE NIGHT. LUNGS WERE NOTED WITH BILATERL WHEEZING ON AUSCULTATION. VITALS THIS AM WERE 987.9-83-20-96 %-182/77. CBC WNL EXCEPT HGB 11.8, HCT 34.3. CMP WNL EXCEPT CREATININE 1.18, GLUCOSE 119, ALBUMIN 3.2. CHEST XRAY REPORTED CLEAR. BLOOD CULTURES PRELIMINARY RESULTS REPORT NO GROWTH. WE WILL START CLONIDINE 0.3 PATCH TD WEEKLY AND ZYPREXA 2.5MG HS. WE WILL RECHECK LABS AND XRAY AND FOLLOW UP WITH PATIENT IN AM. - Past Medical Family Social History Past Med/Fam/Surg Hx: No changes since H&P Allergies: Allergies Penicillins Allergy (Verified 06/03/17 12:13) zolpidem Allergy (Verified 06/03/17 12:13) diazepam Adverse Reaction (Verified 06/03/17 12:13) CONFUSION - Review of Systems ROS: No change since H&P - Vital Signs and I&O's Vital Signs: Temperature 97.9 F Pulse Rate [Left Brachial] 83 Pulse Rate 90 Respiratory Rate 20 Blood Pressure [Right Arm] 182/77 Blood Pressure [Left Femoral 129/56 Artery] Blood Pressure [Left Arm] 151/67 Blood Pressure 192/81 O2 Sat by Pulse Oximetry 96 Intake and Output: Intake & Output 06/03/17 06/04/17 06/05/17 06/06/17 11:59 11:59 11:59 11:59 Intake Total 523 863 4443 Output Total 700 Balance -027 630 8194 - Physical Exam Oriented: Normal. negative: Time, Person, Place, Not Oriented, Unable to test, Other Eyes: Normal. negative: Blurred Vision, Diplopia, Discharge, Pain, Redness, Photophobia, Other Ear: Normal. negative: Right, Left, Swelling, Ecchymosis, Hemotypanum, Abrasion , Laceration Nose: Normal. negative: Injected, Discharge, Blood, Other Throat: Normal. negative: Tonsillar Hypertrophy, Red, Exudate, Dry, Other Respiratory: Right, Left, Generalized, Wheezes Cardiovascular: Normal. negative: Tachycardia, Bradycardia, Irregular, S3, S4, Systolic, Diastolic, Murmur, Edema, Other : Normal. negative: Dysuria, Hematuria, Frequency, Discharge, Testicular Pain , Bleeding, , Other Auscultation: Bowel Sounds: Normal. negative: Bruit, Absent, Increased, Decreased, High Pitched, Other Palpation: Normal Tenderness: Normal. negative: Diffuse, RUQ, RLQ, LUQ, LLQ, Epigastric, Periumbilical, Suprapubic, Mild, Moderate, Severe, Rebound, Guarding, Rigidity, Other Skin: Normal. negative: Decreased Turgur, Rash, Papular, Macular, Maculopapular , Vesicular, Pustular, Petechial, Red, Tender, Hot, Diaphoresis, Wound, Bruising , Ecchymosis, Other Musculoskeletal: Normal. negative: Right, Left, Shoulder, Clavicle, Arm, Elbow , Forearm, Wrist, Hand, Hip, Thigh, Knee, Leg, Ankle, Foot, Back:Thoracic, Back: Lumbar, Back:Midline, Back:Paraspinous, Pelvis, Swelling, Tender, Deformity, Pulse Deficit, Motor Deficit, Sensory Deficit, Instability, Crepitance Psychiatric: Normal Mood Description: Calm Affect: Normal Speech Pattern: Clear, Appropriate - Laboratory and Diagnostics Result Diagrams: 06/06/17 04:23 06/06/17 04:23 Labs: 06/03/17 11:10 Blood Blood Culture - Preliminary 06/03/17 11:10 Blood Blood Culture - Preliminary 06/03/17 12:49 Sputum - Expectorated Sputum Sputum Culture - Final 06/03/17 12:49 Sputum - Expectorated Sputum - Final Laboratory WBC 7.3 X10^3/uL (3.6-10.0) 06/06/17 04:23 RBC 3.88 X10^6/uL (3.5-5.4) 06/06/17 04:23 Hgb 11.8 g/dL (12.0-16.0) L 06/06/17 04:23 Hct 35.2 % (36.0-47.0) L 06/06/17 04:23 MCV 90.8 fL (80.0-100.0) 06/06/17 04:23 MCH 30.5 pg (27.0-34.0) 06/06/17 04:23 MCHC 33.6 g/dL (33.0-35.0) 06/06/17 04:23 RDW 12.9 % (11.6-16.5) 06/06/17 04:23 Plt Count 256 X10^3/uL (150.0-450.0) 06/06/17 04:23 MPV 7.7 fL (7.4-11.0) 06/06/17 04:23 Neut % 66.8 % (42.0-75.0) 06/06/17 04:23 Lymph % 19.3 % (21.0-51.0) L 06/06/17 04:23 [place] % 8.9 % (0.0-13.0) 06/06/17 04:23 Eos % 4.4 % (0.9-2.9) H 06/06/17 04:23 Baso % 0.6 % (0.2-1.0) 06/06/17 04:23 Neut # 4.9 x10^3/uL (2.2-4.8) H 06/06/17 04:23 Lymph # 1.4 X10^3/uL (1.3-2.9) 06/06/17 04:23 [place] # 0.6 x10^3/uL (0.3-0.8) 06/06/17 04:23 Eos # 0.3 x10^3/uL (0.0-0.2) H 06/06/17 04:23 Baso # 0.0 X10^3/uL (0.0-0.1) 06/06/17 04:23 Absolute Nucleated RBC 0.1 /100WBC 06/06/17 04:23 Sodium 139 mmol/L (136-145) 06/06/17 04:23 Corrected Sodium 139 mmol/L (136-145) 06/06/17 04:23 Potassium 3.8 mmol/L (3.5-5.1) 06/06/17 04:23 Chloride 105 mmol/L (98-107) 06/06/17 04:23 Carbon Dioxide 30.9 mmol/L (21-32) 06/06/17 04:23 BUN 10 mg/dL (7-18) 06/06/17 04:23 Creatinine 1.18 mg/dL (0.55-1.02) H 06/06/17 04:23 Est GFR (MDRD) Af Amer 56 (>60) L 06/06/17 04:23 Est GFR (MDRD) Non-Af 46 (>60) L 06/06/17 04:23 Glucose 119 mg/dL (65-99) H 06/06/17 04:23 Calcium 8.9 mg/dL (8.5-10.1) 06/06/17 04:23 Corrected Calcium 9.5 mg/dL (8.5-10.1) 06/06/17 04:23 Total Bilirubin 0.30 mg/dL (0.2-1.0) 06/06/17 04:23 AST 17 Units/L (15-37) 06/06/17 04:23 ALT 21 Units/L (12-78) 06/06/17 04:23 Alkaline Phosphatase 77 Units/L (46-116) 06/06/17 04:23 Total Protein 6.8 g/dL (6.4-8.2) 06/06/17 04:23 Albumin 3.2 g/dL (3.4-5.0) L 06/06/17 04:23 Globulin 3.6 g/dL (2.5-4.5) 06/06/17 04:23 Albumin/Globulin Ratio 0.9 Ratio (1.1-2.1) L 06/06/17 04:23 Specimen Type Clean catch urine 06/03/17 11:21 Urine Color Yellow (YELLOW) 06/03/17 11:21 Urine Appearance Hazy (CLEAR) 06/03/17 11:21 Urine pH 6.0 (5.0 - 8.0) 06/03/17 11:21 Ur Specific [place] 1.010 (1.000-1.030) 06/03/17 11:21 Urine Protein 1+ (NEGATIVE) 06/03/17 11:21 Urine Glucose (UA) Negative (NEGATIVE) 06/03/17 11:21 Urine Ketones Negative (NEGATIVE) 06/03/17 11:21 Urine Occult Blood 1+ (NEGATIVE) 06/03/17 11:21 Urine Nitrite Negative (NEGATIVE) 06/03/17 11:21 Urine Bilirubin Negative (NEGATIVE) 06/03/17 11:21 Urine Urobilinogen Normal (NORMAL) 06/03/17 11:21 Ur Leukocyte Esterase 3+ (NEGATIVE) 06/03/17 11:21 Urine RBC 0-2 /HPF (NEGATIVE) 06/03/17 11:21 Urine WBC 0-2 /HPF (NEGATIVE) 06/03/17 11:21 Ur Squamous Epith Cells Few /HPF (NEGATIVE) 06/03/17 11:21 Urine Bacteria Trace /HPF (NEGATIVE) 06/03/17 11:21 Ur Culture Indicated? No/not indicated 06/03/17 11:21 - Plan (1) Bronchopneumonia Status: Acute Plan: PNEUMONIA PROTOCOL, DUONEBS Q4H, LEVAQUIN IV Q48H, RECHECK CHEST XRAY AND LABS, CONTINUE TO MONITOR PATIENT. (2) Altered mental status, unspecified Status: Acute Qualifiers: Altered mental status type: disorientation Coma depth: C Coma timing: C Qualified Code(s): R41.0 - Disorientation, unspecified Plan: START ZYPREXA 2.5MG HS (3) Depression Status: Chronic Qualifiers: Depression Type: major depressive disorder Major depression recurrence: recurrent Active/Remission status: remission status unspecified Major depression episode severity: M Psychotic features: P Trimester: T Qualified Code(s): F33.9 - Major depressive disorder, recurrent, unspecified Plan: CONTINUE PROZAC, CONTINUE TO MONITOR (4) GERD (gastroesophageal reflux disease) Status: Chronic Qualifiers: Esophagitis presence: esophagitis presence not specified Qualified Code(s) : K21.9 - Gastro-esophageal reflux disease without esophagitis Plan: CONTINUE NEXIUM, CONTINUE TO MONITOR (5) Hyperglycemia Status: Chronic Plan: CONTINUE LANTUS, CHECK OTBS, CONTINUE TO MONITOR (6) Hyperlipidemia Status: Chronic Qualifiers: Hyperlipidemia type: mixed hyperlipidemia Qualified Code(s): E78.2 - Mixed hyperlipidemia Plan: CONTINUE PRAVACHOL, CONTINUE TO MONITOR (7) Hypertension Status: Chronic Qualifiers: Hypertension type: essential hypertension Qualified Code(s): I10 - Essential (primary) hypertension Plan: START CLONIDINE PATCH, CONTINUE COREG, CONTINUE LISINOPRIL, CONTINUE TO MONITOR (8) Anxiety Status: Chronic Plan: CONTINUE WITH RISPERDAL, CONTINUE TO MONITOR
[2017-06-06] MEDS: ZyrTEC TAB 10 MG PO SCH (20:58)
[2017-06-06] MEDS: SNACK - Diabetic Appropriate PO SCH (20:59)
[2017-06-06] MEDS: LANTUS SC SCH (21:05)
[2017-06-06] MEDS: HumuLIN R SUBCUT PRN (21:06)
[2017-06-06] MEDS: PATIENT'S HOME MEDICATION PO SCH (21:28)
[2017-06-07] MEDS: NS 1/2 1000 ML IV 1,000 ML IV SCH ×2 (00:09→17:26)
[2017-06-07] MEDS: DUONEB 0.5 MG/3 MG NEB SCH ×6 (01:10→20:30)
[2017-06-07 04:45] LABS: BASOPHILS % (AUTO) 0.5 % (0.2-1.0); EOSINOPHILS # (AUTO) 0.2 x10^3/uL (0.0-0.2); EOSINOPHILS % (AUTO) 3.7 % (0.9-2.9); HEMATOCRIT 31.9 % (36.0-47.0); HEMOGLOBIN 10.9 g/dL (12.0-16.0); LYMPHOCYTES # (AUTO) 1.6 X10^3/uL (1.3-2.9); LYMPHOCYTES % (AUTO) 26.3 % (21.0-51.0); MEAN CORPUSCULAR HEMOGLOBIN 30.7 pg (27.0-34.0); MEAN CORPUSCULAR HGB CONC 34.2 g/dL (33.0-35.0); MEAN CORPUSCULAR VOLUME 89.9 fL (80.0-100.0); MEAN PLATELET VOLUME 7.7 fL (7.4-11.0); MONOCYTES # (AUTO) 0.7 x10^3/uL (0.3-0.8); MONOCYTES % (AUTO) 11.3 % (0.0-13.0); NEUTROPHILS # (AUTO) 3.6 x10^3/uL (2.2-4.8); NEUTROPHILS % (AUTO) 58.2 % (42.0-75.0); PLATELET COUNT 227 X10^3/uL (150.0-450.0); RED BLOOD COUNT 3.55 X10^6/uL (3.5-5.4); RED CELL DISTRIBUTION WIDTH 12.9 % (11.6-16.5); WHITE BLOOD COUNT 6.3 X10^3/uL (3.6-10.0)
[2017-06-07 04:49] LABS: ALANINE AMINOTRANSFERASE 17 Units/L (12-78); ALBUMIN 2.8 g/dL (3.4-5.0); ALKALINE PHOSPHATASE 63 Units/L (46-116); ASPARTATE AMINO TRANSFERASE 14 Units/L (15-37); BLOOD UREA NITROGEN 12 mg/dL (7-18); CALCIUM 8.9 mg/dL (8.5-10.1); CARBON DIOXIDE 30.2 mmol/L (21-32); CHLORIDE 108 mmol/L (98-107); COR CA(FOR HYPOALB) 9.9 mg/dL (8.5-10.1); CREATININE 1.26 mg/dL (0.55-1.02); GLUCOSE 70 mg/dL (65-99); SODIUM 141 mmol/L (136-145); TOTAL PROTEIN 5.9 g/dL (6.4-8.2); eGFR BLACK RACES 52 (>60); eGFR NON BLACK RACES 43 (>60)
[2017-06-07] MEDS: LEVAQUIN PREMIX IV 500 MG 500 MG/100 ML BAG IV SCH (08:53)
--- NOTE | 2017-06-07 10:11 | PCM.PROG ---
Progress Note - Subjective Subjective: MS.TURNER MORENO WAS AWAKE AND ORIENTED ON MORNING ROUNDS, LYING IN BED. SHE HAD COMPLAINTS OF PRODUCTIVE COUGH. STAFF REPORTS THAT PATIENT CONTINUES WITH CONFUSION AND AGITATION THROUGHOUT THE NIGHT. LUNGS WERE NOTED WITH BILATERAL WHEEZING ON AUSCULTATION. VITALS THIS AM WERE 98.4-74-20-97%-189/ 81 . CBC WNL EXCEPT HGB 10.9, HCT 31.9. CMP WNL EXCEPT BUN 12, CREATININE 1.26, ALBUMIN 2.8. CHEST XRAY REPORTED CLEAR. BLOOD CULTURES PRELIMINARY RESULTS REPORT NO GROWTH. WE WILL CONTINUE CURRENT PLAN OF CARE. PATIENT IS A FORMER RESIDENT OF [facility], BUT LEFT FACILITY ON HER OWN AND IS NOW LIVING AT HOME ALONE. WE WILL DISCUSS SKILLED NURSING PLACEMENT AT [facility] WITH PATIENT'S DAUGHTER. WE WILL RECHECK LABS AND XRAY AND FOLLOW UP WITH PATIENT IN AM. - Past Medical Family Social History Past Med/Fam/Surg Hx: No changes since H&P Allergies: Allergies Penicillins Allergy (Verified 06/03/17 12:13) zolpidem Allergy (Verified 06/03/17 12:13) diazepam Adverse Reaction (Verified 06/03/17 12:13) CONFUSION - Review of Systems ROS: No change since H&P - Vital Signs and I&O's Vital Signs: Temperature 98.4 F Pulse Rate [Right Brachial] 74 Pulse Rate [Left Brachial] 80 Pulse Rate 90 Respiratory Rate 20 Blood Pressure [Right Arm] 185/81 Blood Pressure [Left Femoral 129/56 Artery] Blood Pressure [Left Arm] 189/81 Blood Pressure 192/81 O2 Sat by Pulse Oximetry 97 Intake and Output: Intake & Output 06/04/17 06/05/17 06/06/17 06/07/17 11:59 11:59 11:59 11:59 Intake Total 519 466 5213 1738 Output Total 700 1600 Balance -423 777 5280 138 - Physical Exam Oriented: Normal. negative: Time, Person, Place, Not Oriented, Unable to test, Other Eyes: Normal. negative: Blurred Vision, Diplopia, Discharge, Pain, Redness, Photophobia, Other Ear: Normal. negative: Right, Left, Swelling, Ecchymosis, Hemotypanum, Abrasion , Laceration Nose: Normal. negative: Injected, Discharge, Blood, Other Throat: Normal. negative: Tonsillar Hypertrophy, Red, Exudate, Dry, Other Respiratory: Right, Left, Generalized, Wheezes Cardiovascular: Normal. negative: Tachycardia, Bradycardia, Irregular, S3, S4, Systolic, Diastolic, Murmur, Edema, Other : Normal. negative: Dysuria, Hematuria, Frequency, Discharge, Testicular Pain , Bleeding, , Other Auscultation: Bowel Sounds: Normal. negative: Bruit, Absent, Increased, Decreased, High Pitched, Other Palpation: Normal Tenderness: Normal. negative: Diffuse, RUQ, RLQ, LUQ, LLQ, Epigastric, Periumbilical, Suprapubic, Mild, Moderate, Severe, Rebound, Guarding, Rigidity, Other Skin: Normal. negative: Decreased Turgur, Rash, Papular, Macular, Maculopapular , Vesicular, Pustular, Petechial, Red, Tender, Hot, Diaphoresis, Wound, Bruising , Ecchymosis, Other Musculoskeletal: Normal. negative: Right, Left, Shoulder, Clavicle, Arm, Elbow , Forearm, Wrist, Hand, Hip, Thigh, Knee, Leg, Ankle, Foot, Back:Thoracic, Back: Lumbar, Back:Midline, Back:Paraspinous, Pelvis, Swelling, Tender, Deformity, Pulse Deficit, Motor Deficit, Sensory Deficit, Instability, Crepitance Psychiatric: Normal Mood Description: Calm Affect: Normal Speech Pattern: Clear, Appropriate - Laboratory and Diagnostics Result Diagrams: 06/07/17 03:35 06/07/17 03:35 Labs: 06/03/17 11:10 Blood Blood Culture - Preliminary 06/03/17 11:10 Blood Blood Culture - Preliminary 06/03/17 12:49 Sputum - Expectorated Sputum Sputum Culture - Final 06/03/17 12:49 Sputum - Expectorated Sputum - Final Laboratory WBC 6.3 X10^3/uL (3.6-10.0) 06/07/17 03:35 RBC 3.55 X10^6/uL (3.5-5.4) 06/07/17 03:35 Hgb 10.9 g/dL (12.0-16.0) L 06/07/17 03:35 Hct 31.9 % (36.0-47.0) L 06/07/17 03:35 MCV 89.9 fL (80.0-100.0) 06/07/17 03:35 MCH 30.7 pg (27.0-34.0) 06/07/17 03:35 MCHC 34.2 g/dL (33.0-35.0) 06/07/17 03:35 RDW 12.9 % (11.6-16.5) 06/07/17 03:35 Plt Count 227 X10^3/uL (150.0-450.0) 06/07/17 03:35 MPV 7.7 fL (7.4-11.0) 06/07/17 03:35 Neut % 58.2 % (42.0-75.0) 06/07/17 03:35 Lymph % 26.3 % (21.0-51.0) 06/07/17 03:35 [place] % 11.3 % (0.0-13.0) 06/07/17 03:35 Eos % 3.7 % (0.9-2.9) H 06/07/17 03:35 Baso % 0.5 % (0.2-1.0) 06/07/17 03:35 Neut # 3.6 x10^3/uL (2.2-4.8) 06/07/17 03:35 Lymph # 1.6 X10^3/uL (1.3-2.9) 06/07/17 03:35 [place] # 0.7 x10^3/uL (0.3-0.8) 06/07/17 03:35 Eos # 0.2 x10^3/uL (0.0-0.2) 06/07/17 03:35 Baso # 0.0 X10^3/uL (0.0-0.1) 06/07/17 03:35 Absolute Nucleated RBC 0.0 /100WBC 06/07/17 03:35 Sodium 141 mmol/L (136-145) 06/07/17 03:35 Corrected Sodium TNP 06/07/17 03:35 Potassium 4.3 mmol/L (3.5-5.1) 06/07/17 03:35 Chloride 108 mmol/L (98-107) H 06/07/17 03:35 Carbon Dioxide 30.2 mmol/L (21-32) 06/07/17 03:35 BUN 12 mg/dL (7-18) 06/07/17 03:35 Creatinine 1.26 mg/dL (0.55-1.02) H 06/07/17 03:35 Est GFR (MDRD) Af Amer 52 (>60) L 06/07/17 03:35 Est GFR (MDRD) Non-Af 43 (>60) L 06/07/17 03:35 Glucose 70 mg/dL (65-99) 06/07/17 03:35 Calcium 8.9 mg/dL (8.5-10.1) 06/07/17 03:35 Corrected Calcium 9.9 mg/dL (8.5-10.1) 06/07/17 03:35 Total Bilirubin 0.20 mg/dL (0.2-1.0) 06/07/17 03:35 AST 14 Units/L (15-37) L 06/07/17 03:35 ALT 17 Units/L (12-78) 06/07/17 03:35 Alkaline Phosphatase 63 Units/L (46-116) 06/07/17 03:35 Total Protein 5.9 g/dL (6.4-8.2) L 06/07/17 03:35 Albumin 2.8 g/dL (3.4-5.0) L 06/07/17 03:35 Globulin 3.1 g/dL (2.5-4.5) 06/07/17 03:35 Albumin/Globulin Ratio 0.9 Ratio (1.1-2.1) L 06/07/17 03:35 Specimen Type Clean catch urine 06/03/17 11:21 Urine Color Yellow (YELLOW) 06/03/17 11:21 Urine Appearance Hazy (CLEAR) 06/03/17 11:21 Urine pH 6.0 (5.0 - 8.0) 06/03/17 11:21 Ur Specific [place] 1.010 (1.000-1.030) 06/03/17 11:21 Urine Protein 1+ (NEGATIVE) 06/03/17 11:21 Urine Glucose (UA) Negative (NEGATIVE) 06/03/17 11:21 Urine Ketones Negative (NEGATIVE) 06/03/17 11:21 Urine Occult Blood 1+ (NEGATIVE) 06/03/17 11:21 Urine Nitrite Negative (NEGATIVE) 06/03/17 11:21 Urine Bilirubin Negative (NEGATIVE) 06/03/17 11:21 Urine Urobilinogen Normal (NORMAL) 06/03/17 11:21 Ur Leukocyte Esterase 3+ (NEGATIVE) 06/03/17 11:21 Urine RBC 0-2 /HPF (NEGATIVE) 06/03/17 11:21 Urine WBC 0-2 /HPF (NEGATIVE) 06/03/17 11:21 Ur Squamous Epith Cells Few /HPF (NEGATIVE) 06/03/17 11:21 Urine Bacteria Trace /HPF (NEGATIVE) 06/03/17 11:21 Ur Culture Indicated? No/not indicated 06/03/17 11:21 - Plan (1) Bronchopneumonia Status: Acute Plan: PNEUMONIA PROTOCOL, DUONEBS Q4H, LEVAQUIN IV Q48H, RECHECK CHEST XRAY AND LABS, CONTINUE TO MONITOR PATIENT. (2) Altered mental status, unspecified Status: Acute Qualifiers: Altered mental status type: disorientation Coma depth: C Coma timing: C Qualified Code(s): R41.0 - Disorientation, unspecified Plan: START ZYPREXA 2.5MG HS (3) Depression Status: Chronic Qualifiers: Depression Type: major depressive disorder Major depression recurrence: recurrent Active/Remission status: remission status unspecified Major depression episode severity: M Psychotic features: P Trimester: T Qualified Code(s): F33.9 - Major depressive disorder, recurrent, unspecified Plan: CONTINUE PROZAC, CONTINUE TO MONITOR (4) GERD (gastroesophageal reflux disease) Status: Chronic Qualifiers: Esophagitis presence: esophagitis presence not specified Qualified Code(s) : K21.9 - Gastro-esophageal reflux disease without esophagitis Plan: CONTINUE NEXIUM, CONTINUE TO MONITOR (5) Hyperglycemia Status: Chronic Plan: CONTINUE LANTUS, CHECK OTBS, CONTINUE TO MONITOR (6) Hyperlipidemia Status: Chronic Qualifiers: Hyperlipidemia type: mixed hyperlipidemia Qualified Code(s): E78.2 - Mixed hyperlipidemia Plan: CONTINUE PRAVACHOL, CONTINUE TO MONITOR (7) Hypertension Status: Chronic Qualifiers: Hypertension type: essential hypertension Qualified Code(s): I10 - Essential (primary) hypertension Plan: CONTINUE CATAPRESS PATCH, CONTINUE COREG, CONTINUE LISINOPRIL, CONTINUE TO MONITOR (8) Anxiety Status: Chronic Plan: CONTINUE WITH RISPERDAL, CONTINUE TO MONITOR
[2017-06-07] MEDS: ZANTAC PO SCH ×2 (10:49→21:05)
[2017-06-07] MEDS: COREG TAB 25 MG PO SCH ×2 (10:49→21:05)
[2017-06-07] MEDS: ROBITUSSIN DM PO SCH ×4 (10:49→21:06)
[2017-06-07] MEDS: ZESTRIL TAB 40 MG PO SCH ×2 (10:49→21:05)
[2017-06-07] MEDS: NexIUM PO SCH (10:50)
[2017-06-07] MEDS: PROzac PO SCH (10:50)
[2017-06-07] MEDS: PRAVACHOL PO SCH (10:50)
--- NOTE | 2017-06-07 15:23 | RAD ---
HISTORY: Pneumonia Study: Chest one view Comparison: June 06, 2017 Findings: The heart is mildly enlarged. No congestive heart failure is noted. No acute alveolar infiltrates or pleural effusions are identified. The bony thorax is unremarkable. IMPRESSION: Mild cardiomegaly without congestive heart failure Lungs clear Reported By:
[2017-06-07] MEDS ORDERED: NS 1/2 1000 ML IV 1,000 ML IV ONE (17:16)
[2017-06-07] MEDS: HumuLIN R SUBCUT PRN (17:26)
[2017-06-07] MEDS: ZyrTEC TAB 10 MG PO SCH (21:05)
[2017-06-07] MEDS: PATIENT'S HOME MEDICATION PO SCH (21:07)
[2017-06-07] MEDS: SNACK - Diabetic Appropriate PO SCH (21:54)
[2017-06-07] MEDS: LANTUS SC SCH (21:57)
[2017-06-07] MEDS ORDERED: MIRALAX POWDER (1 DOSE 17GM) PO SCH (23:18)
[2017-06-07] MEDS: COLACE CAP 100 MG PO SCH (23:43)
[2017-06-07] MEDS: MILK OF MAGNESIA PO SCH (23:43)
[2017-06-08] MEDS: DUONEB 0.5 MG/3 MG NEB SCH ×4 (00:05→12:43)
[2017-06-08 05:20] LABS: ALBUMIN 2.7 g/dL (3.4-5.0); CALCIUM 8.4 mg/dL (8.5-10.1); CARBON DIOXIDE 29.5 mmol/L (21-32); COR CA(FOR HYPOALB) 9.4 mg/dL (8.5-10.1); CREATININE 1.29 mg/dL (0.55-1.02); TOTAL PROTEIN 5.7 g/dL (6.4-8.2)
[2017-06-08 05:22] LABS: BASOPHILS % (AUTO) 0.4 % (0.2-1.0); EOSINOPHILS # (AUTO) 0.3 x10^3/uL (0.0-0.2); EOSINOPHILS % (AUTO) 3.7 % (0.9-2.9); HEMATOCRIT 29.3 % (36.0-47.0); HEMOGLOBIN 10.3 g/dL (12.0-16.0); LYMPHOCYTES # (AUTO) 1.6 X10^3/uL (1.3-2.9); LYMPHOCYTES % (AUTO) 20.1 % (21.0-51.0); MEAN CORPUSCULAR HEMOGLOBIN 31.6 pg (27.0-34.0); MEAN CORPUSCULAR HGB CONC 35.3 g/dL (33.0-35.0); MEAN CORPUSCULAR VOLUME 89.7 fL (80.0-100.0); MEAN PLATELET VOLUME 7.6 fL (7.4-11.0); MONOCYTES # (AUTO) 0.7 x10^3/uL (0.3-0.8); MONOCYTES % (AUTO) 8.7 % (0.0-13.0); NEUTROPHILS # (AUTO) 5.3 x10^3/uL (2.2-4.8); NEUTROPHILS % (AUTO) 67.1 % (42.0-75.0); PLATELET COUNT 223 X10^3/uL (150.0-450.0); RED BLOOD COUNT 3.26 X10^6/uL (3.5-5.4); RED CELL DISTRIBUTION WIDTH 12.9 % (11.6-16.5); WHITE BLOOD COUNT 7.9 X10^3/uL (3.6-10.0)
[2017-06-08] MEDS ORDERED: NS 1/2 1000 ML IV 1,000 ML IV ONE (06:11)
[2017-06-08] MEDS: NS 1/2 1000 ML IV 1,000 ML IV SCH (06:17)
--- NOTE | 2017-06-08 06:28 | RAD ---
HISTORY: Pneumonia, shortness of breath Study: Chest one view Comparison: June 07, 2017 Findings: The heart remains enlarged. No congestive heart failure is noted. The aorta is calcified. The xavier a re normal. The lungs are free of acute alveolar infiltrates. No pleural effusions are identified. Th e bony thorax is unremarkable. IMPRESSION: Mild cardiomegaly without congestive heart failure Lungs clear Reported By:
[2017-06-08] MEDS: ROBITUSSIN DM PO SCH ×2 (09:19→14:20)
[2017-06-08] MEDS: PRAVACHOL PO SCH (09:19)
[2017-06-08] MEDS: PROzac PO SCH (09:19)
[2017-06-08] MEDS: MILK OF MAGNESIA PO SCH ×2 (09:19→14:20)
[2017-06-08] MEDS: COREG TAB 25 MG PO SCH (09:19)
[2017-06-08] MEDS: ZESTRIL TAB 40 MG PO SCH (09:19)
[2017-06-08] MEDS: COLACE CAP 100 MG PO SCH (09:19)
[2017-06-08] MEDS: ZANTAC PO SCH (09:19)
[2017-06-08] MEDS: NexIUM PO SCH (09:19)
[2017-06-08 16:35] VITALS: BP 175/78
== END 2017-06-08 16:00 | DRG 194 ==
LOC: MED/SURG 09:40
PROVIDERS: ADMIT Internal Medicine; ATTEND Internal Medicine
DX: J18.0 Bronchopneumonia, unspecified organism (principal); I10 Essential (primary) hypertension; E11.65 Type 2 diabetes mellitus with hyperglycemia; E78.2 Mixed hyperlipidemia; I51.7 Cardiomegaly; R06.02 Shortness of breath; J44.9 Chronic obstructive pulmonary disease, unspecified; F33.8 Other recurrent depressive disorders; K21.9 Gastro-esophageal reflux disease without esophagitis; R41.0 Disorientation, unspecified; R44.2 Other hallucinations
CPT/HCPCS: 36415; 71010; 71020; 80053; 81001; 85025; 87040; 87070; 87205; 94640; 94760; A4222; J1815; J1817; J1956; J7620

== ENCOUNTER 2017-10-19 17:58 | Inpatient (IN) | payer OTHER ==
[2017-10-19] MEDS ORDERED: SALINE 3% 15 ML NEB TX NEB ONE (18:40)
[2017-10-19] MEDS ORDERED: SALINE 3% 15 ML NEB TX ONE (18:41)
[2017-10-19] MEDS ORDERED: DUONEB 0.5 MG/3 MG ONE (18:41)
[2017-10-19] MEDS ORDERED: TUSSIONEX PENNKINETIC SUSP PO PRN (18:44)
[2017-10-19] MEDS: DUONEB 0.5 MG/3 MG NEB SCH ×2 (18:51→20:45)
[2017-10-19] MEDS ORDERED: NS 1/2 1000 ML IV 1,000 ML IV ONE (19:31)
[2017-10-19 19:35] LABS: BASOPHILS # (AUTO) 0.1 X10^3/uL (0.0-0.1); BASOPHILS % (AUTO) 1.1 % (0.2-1.0); EOSINOPHILS # (AUTO) 0.5 x10^3/uL (0.0-0.2); EOSINOPHILS % (AUTO) 6.7 % (0.9-2.9); HEMATOCRIT 32.1 % (36.0-47.0); HEMOGLOBIN 10.9 g/dL (12.0-16.0); LYMPHOCYTES # (AUTO) 1.7 X10^3/uL (1.3-2.9); MEAN CORPUSCULAR HEMOGLOBIN 30.4 pg (27.0-34.0); MEAN CORPUSCULAR VOLUME 89.4 fL (80.0-100.0); MEAN PLATELET VOLUME 8.2 fL (7.4-11.0); MONOCYTES # (AUTO) 0.8 x10^3/uL (0.3-0.8); MONOCYTES % (AUTO) 10.4 % (0.0-13.0); NEUTROPHILS # (AUTO) 4.4 x10^3/uL (2.2-4.8); NEUTROPHILS % (AUTO) 58.8 % (42.0-75.0); PLATELET COUNT 188 X10^3/uL (150.0-450.0); RED BLOOD COUNT 3.59 X10^6/uL (3.5-5.4); RED CELL DISTRIBUTION WIDTH 13.1 % (11.6-16.5); WHITE BLOOD COUNT 7.5 X10^3/uL (3.6-10.0)
[2017-10-19 19:44] LABS: ALANINE AMINOTRANSFERASE 36 Units/L (12-78); ALBUMIN 3.6 g/dL (3.4-5.0); ALKALINE PHOSPHATASE 98 Units/L (46-116); ASPARTATE AMINO TRANSFERASE 20 Units/L (15-37); BLOOD UREA NITROGEN 36 mg/dL (7-18); CALCIUM 9.4 mg/dL (8.5-10.1); CARBON DIOXIDE 28.4 mmol/L (21-32); CHLORIDE 105 mmol/L (98-107); COR NA(FOR HYPERGLY) 142 mmol/L (136-145); CREATININE 1.72 mg/dL (0.55-1.02); SODIUM 141 mmol/L (136-145); eGFR BLACK RACES 36 (>60); eGFR NON BLACK RACES 30 (>60)
[2017-10-19] MEDS: NS 1/2 1000 ML IV 1,000 ML IV SCH (19:54)
[2017-10-19] MEDS ORDERED: LEVAQUIN PREMIX IV 750 MG 750 MG/150 ML BAG IV ONE (20:00)
[2017-10-19] MEDS: ROBITUSSIN DM PO SCH (22:30)
[2017-10-19 22:46] VITALS: BMI 25.0
[2017-10-20] MEDS: DUONEB 0.5 MG/3 MG NEB SCH ×6 (00:54→20:46)
[2017-10-20 05:31] LABS: BASOPHILS % (AUTO) 0.4 % (0.2-1.0); EOSINOPHILS # (AUTO) 0.4 x10^3/uL (0.0-0.2); EOSINOPHILS % (AUTO) 7.1 % (0.9-2.9); HEMATOCRIT 29.3 % (36.0-47.0); LYMPHOCYTES # (AUTO) 1.3 X10^3/uL (1.3-2.9); LYMPHOCYTES % (AUTO) 23.3 % (21.0-51.0); MEAN CORPUSCULAR HEMOGLOBIN 30.6 pg (27.0-34.0); MEAN CORPUSCULAR HGB CONC 34.2 g/dL (33.0-35.0); MEAN CORPUSCULAR VOLUME 89.6 fL (80.0-100.0); MEAN PLATELET VOLUME 8.4 fL (7.4-11.0); MONOCYTES # (AUTO) 0.6 x10^3/uL (0.3-0.8); MONOCYTES % (AUTO) 10.9 % (0.0-13.0); NEUTROPHILS # (AUTO) 3.3 x10^3/uL (2.2-4.8); NEUTROPHILS % (AUTO) 58.3 % (42.0-75.0); PLATELET COUNT 177 X10^3/uL (150.0-450.0); RED BLOOD COUNT 3.27 X10^6/uL (3.5-5.4); WHITE BLOOD COUNT 5.7 X10^3/uL (3.6-10.0)
[2017-10-20 05:51] LABS: ALBUMIN 2.9 g/dL (3.4-5.0); CALCIUM 9.1 mg/dL (8.5-10.1); CARBON DIOXIDE 28.2 mmol/L (21-32); CREATININE 1.51 mg/dL (0.55-1.02)
[2017-10-20] MEDS: ROBITUSSIN DM PO SCH ×4 (08:31→20:58)
[2017-10-20] MEDS ORDERED: NS 1/2 1000 ML IV 1,000 ML IV ONE (11:14)
[2017-10-20] MEDS: NS 1/2 1000 ML IV 1,000 ML IV SCH (11:15)
[2017-10-20] MEDS ORDERED: ULTRAM PO PRN (12:44)
--- NOTE | 2017-10-20 12:56 | PCM.PROG ---
Progress Note - Progress Note for Day of Date: 10/20/17 - Subjective Subjective: WAS ADMITTED FOR BRONCHOPNEUMONIA. TODAY, SHE IS ALERT AND ORIENTED, LYING IN BED ON MORNING ROUNDS. SHE CONTINUES WITH COMPLAINTS OF WEAKNESS, PRODUCTIVE COUGH, AND SHORNTESS OF BREATH. ON EXAMINATION, HEART IS REGULAR IN RATE AND RHYTHM. HOLE DIGGER SHOWS NORMAL SINUS RHYTHM. SHE IS NOTED TO BE UTILIZING OXYGEN VIA NASAL CANNULA AT 2L/MIN. LUNGS ARE NOTED WITH SCATTERED WHEEZING AND RHONCHI BILATERALLY TO AUSCULTATION. ABDOMEN IS ROUND, SOFT, AND NON-TENDER WITH NORMAL BOWEL SOUNDS NOTED IN ALL QUADRANTS. GOOD RANGE OF MOTION NOTED IN ALL EXTREMITIES. HER VITAL SIGNS THIS MORNING ARE 98.1- 66-14-98%-161/68. ABNORMAL LAB VALUES INCLUDE THE FOLLOWING: RBC 3.27, HGB 10.0 , HCT 29.3, BUN 32, CREATININE 1.51, GLUCOSE 169, TOTAL PROTEIN 6.0, ALBUMIN 2.9. SHE IS CURRENTLY RECEIVING LEVAQUIN AND RESPIRATORY TREATMENTS. WE WILL CONTINUE WITH CURRENT PLAN OF CARE TODAY. OTHERWISE, WE WILL FOLLOW UP WITH AM LABS AND CHEST XRAY AND CONTINUE TO MONITOR PATIENT. - Past Medical Family Social History Past Med/Fam/Surg Hx: No changes since H&P Allergies: Allergies Penicillins Allergy (Verified 06/03/17 12:13) zolpidem Allergy (Verified 06/03/17 12:13) diazepam Adverse Reaction (Verified 06/03/17 12:13) CONFUSION - Review of Systems ROS: No change since H&P - Vital Signs and I&O's Vital Signs: Temperature 98.5 F Pulse Rate [Apical] 69 Pulse Rate 70 Respiratory Rate 14 Blood Pressure [Right Arm] 145/63 Blood Pressure [Left Femoral 129/56 Artery] Blood Pressure [Left Arm] 156/67 Blood Pressure 175/78 O2 Sat by Pulse Oximetry 100 Intake and Output: Intake & Output 10/18/17 10/19/17 10/20/17 10/21/17 11:59 11:59 11:59 11:59 Intake Total 979 Output Total 700 Balance 279 - Physical Exam Oriented: Normal. negative: Time, Person, Place, Not Oriented, Unable to test, Other Eyes: Normal. negative: Blurred Vision, Diplopia, Discharge, Pain, Redness, Photophobia, Other Ear: Normal. negative: Right, Left, Swelling, Ecchymosis, Hemotypanum, Abrasion , Laceration Nose: Normal. negative: Injected, Discharge, Blood, Other Throat: Normal. negative: Tonsillar Hypertrophy, Red, Exudate, Dry, Other Respiratory: Right, Left, Generalized, Wheezes, Rhonchi Cardiovascular: Normal. negative: Tachycardia, Bradycardia, Irregular, S3, S4, Systolic, Diastolic, Murmur, Edema, Other : Normal. negative: Dysuria, Hematuria, Frequency, Discharge, Testicular Pain , Bleeding, , Other Auscultation: Bowel Sounds: Normal. negative: Bruit, Absent, Increased, Decreased, High Pitched, Other Palpation: Normal Tenderness: Normal. negative: Rebound, Guarding, Rigidity Skin: Normal Musculoskeletal: Normal Psychiatric: Normal Mood Description: Calm Affect: Normal Speech Pattern: Clear - Laboratory and Diagnostics Result Diagrams: 10/20/17 04:45 10/20/17 04:45 Labs: 10/19/17 18:55 Sputum - Expectorated Sputum - Final Laboratory WBC 5.7 X10^3/uL (3.6-10.0) 10/20/17 04:45 RBC 3.27 X10^6/uL (3.5-5.4) L 10/20/17 04:45 Hgb 10.0 g/dL (12.0-16.0) L 10/20/17 04:45 Hct 29.3 % (36.0-47.0) L 10/20/17 04:45 MCV 89.6 fL (80.0-100.0) 10/20/17 04:45 MCH 30.6 pg (27.0-34.0) 10/20/17 04:45 MCHC 34.2 g/dL (33.0-35.0) 10/20/17 04:45 RDW 13.0 % (11.6-16.5) 10/20/17 04:45 Plt Count 177 X10^3/uL (150.0-450.0) 10/20/17 04:45 MPV 8.4 fL (7.4-11.0) 10/20/17 04:45 Neut % 58.3 % (42.0-75.0) 10/20/17 04:45 Lymph % 23.3 % (21.0-51.0) 10/20/17 04:45 [place] % 10.9 % (0.0-13.0) 10/20/17 04:45 Eos % 7.1 % (0.9-2.9) H 10/20/17 04:45 Baso % 0.4 % (0.2-1.0) 10/20/17 04:45 Neut # 3.3 x10^3/uL (2.2-4.8) 10/20/17 04:45 Lymph # 1.3 X10^3/uL (1.3-2.9) 10/20/17 04:45 [place] # 0.6 x10^3/uL (0.3-0.8) 10/20/17 04:45 Eos # 0.4 x10^3/uL (0.0-0.2) H 10/20/17 04:45 Baso # 0.0 X10^3/uL (0.0-0.1) 10/20/17 04:45 Absolute Nucleated RBC 0.0 /100WBC 10/20/17 04:45 Sodium 141 mmol/L (136-145) 10/20/17 04:45 Corrected Sodium 143 mmol/L (136-145) 10/20/17 04:45 Potassium 4.3 mmol/L (3.5-5.1) 10/20/17 04:45 Chloride 105 mmol/L (98-107) 10/20/17 04:45 Carbon Dioxide 28.2 mmol/L (21-32) 10/20/17 04:45 BUN 32 mg/dL (7-18) H 10/20/17 04:45 Creatinine 1.51 mg/dL (0.55-1.02) H 10/20/17 04:45 Est GFR (MDRD) Af Amer 42 (>60) L 10/20/17 04:45 Est GFR (MDRD) Non-Af 35 (>60) L 10/20/17 04:45 Glucose 169 mg/dL (65-99) H 10/20/17 04:45 POC Glucose (mg/dL) 174 mg/dL (65-99) H 10/19/17 21:35 Calcium 9.1 mg/dL (8.5-10.1) 10/20/17 04:45 Corrected Calcium 10.0 mg/dL (8.5-10.1) 10/20/17 04:45 Total Bilirubin 0.30 mg/dL (0.2-1.0) 10/20/17 04:45 AST 18 Units/L (15-37) 10/20/17 04:45 ALT 32 Units/L (12-78) 10/20/17 04:45 Alkaline Phosphatase 82 Units/L (46-116) 10/20/17 04:45 Total Protein 6.0 g/dL (6.4-8.2) L 10/20/17 04:45 Albumin 2.9 g/dL (3.4-5.0) L 10/20/17 04:45 Globulin 3.1 g/dL (2.5-4.5) 10/20/17 04:45 Albumin/Globulin Ratio 0.9 Ratio (1.1-2.1) L 10/20/17 04:45 - Plan (1) Bronchopneumonia Status: Acute Plan: CONTINUE LEVAQUIN, CONTINUE RESPIRATORY TX, CONTINUE TO MONITOR LABS AND CHEST XRAY
[2017-10-20] MEDS ORDERED: CATAPRES-TTS-3 TD SCH ×2 (13:00→14:00)
[2017-10-20] MEDS ORDERED: PROzac PO SCH ×2 (13:00→14:00)
[2017-10-20] MEDS: MIRALAX POWDER (1 DOSE 17GM) PO SCH (13:37)
[2017-10-20] MEDS: APRESOLINE TAB 25 MG PO SCH ×2 (13:38→20:59)
[2017-10-20] MEDS: LASIX PO SCH (13:38)
[2017-10-20] MEDS: COREG TAB 25 MG PO SCH ×2 (13:38→20:58)
[2017-10-20] MEDS: NexIUM PO SCH (13:38)
[2017-10-20] MEDS: HumuLIN R SUBCUT PRN ×2 (13:52→16:16)
[2017-10-20] MEDS: ASPIRIN EC 81 MG PO SCH (14:53)
--- NOTE | 2017-10-20 20:21 | DR.UPDATE ---
H&P Update History and Physical Update: WAS SEEN IN THE OFFICE ON 10/19/17. A H&P WAS COMPLETED PRIOR TO ADMISSION. PATIENT HAS BEEN SEEN AND EXAMINED WITH NO CHANGES NOTED TO H&P. Changes noted: NO Yes with the following:
[2017-10-20] MEDS: HIPREX PO SCH (20:58)
[2017-10-20] MEDS: COLACE CAP 100 MG PO SCH (20:58)
[2017-10-20] MEDS: COZAAR PO SCH (20:59)
[2017-10-20] MEDS: ZANTAC PO SCH (20:59)
[2017-10-20] MEDS ORDERED: CETIRIZINE HCL PO SCH (21:00)
[2017-10-20] MEDS ORDERED: OXYBUTYNIN CHLORIDE ER PO SCH (21:00)
[2017-10-20] MEDS ORDERED: LANTUS SC SCH (21:00)
[2017-10-20] MEDS ORDERED: ZyrTEC TAB 10 MG PO SCH (21:00)
[2017-10-20] MEDS ORDERED: KLONOPIN TAB 0.5 MG PO SCH (21:00)
[2017-10-20] MEDS ORDERED: PRAVACHOL PO SCH (21:00)
[2017-10-20] MEDS ORDERED: PATIENT'S HOME MEDICATION (Losartan Potassium [Losartan Potassium] 25 MG) PO SCH (21:00)
[2017-10-21] MEDS ORDERED: NS 1/2 1000 ML IV 1,000 ML IV ONE ×2 (00:51→16:49)
[2017-10-21] MEDS: DUONEB 0.5 MG/3 MG NEB SCH ×6 (01:17→20:59)
[2017-10-21] MEDS: NS 1/2 1000 ML IV 1,000 ML IV SCH ×2 (03:00→18:08)
[2017-10-21 05:05] LABS: BASOPHILS % (AUTO) 0.4 % (0.2-1.0); EOSINOPHILS # (AUTO) 0.4 x10^3/uL (0.0-0.2); HEMATOCRIT 27.4 % (36.0-47.0); HEMOGLOBIN 9.5 g/dL (12.0-16.0); LYMPHOCYTES # (AUTO) 1.5 X10^3/uL (1.3-2.9); LYMPHOCYTES % (AUTO) 24.6 % (21.0-51.0); MEAN CORPUSCULAR HEMOGLOBIN 31.2 pg (27.0-34.0); MEAN CORPUSCULAR HGB CONC 34.8 g/dL (33.0-35.0); MEAN CORPUSCULAR VOLUME 89.7 fL (80.0-100.0); MEAN PLATELET VOLUME 8.3 fL (7.4-11.0); MONOCYTES # (AUTO) 0.6 x10^3/uL (0.3-0.8); NEUTROPHILS # (AUTO) 3.6 x10^3/uL (2.2-4.8); PLATELET COUNT 164 X10^3/uL (150.0-450.0); RED BLOOD COUNT 3.05 X10^6/uL (3.5-5.4); RED CELL DISTRIBUTION WIDTH 12.8 % (11.6-16.5)
[2017-10-21 05:53] LABS: ALBUMIN 2.8 g/dL (3.4-5.0); CALCIUM 8.9 mg/dL (8.5-10.1); CARBON DIOXIDE 26.1 mmol/L (21-32); COR CA(FOR HYPOALB) 9.9 mg/dL (8.5-10.1); CREATININE 1.5 mg/dL (0.55-1.02); TOTAL PROTEIN 5.6 g/dL (6.4-8.2)
--- NOTE | 2017-10-21 06:32 | RAD ---
HISTORY: Shortness of breath. Study: Single-view chest, done portably Comparison: 10/19/2017 Findings: Cardiac monitoring electrodes are noted on the chest. Heart size is upper normal. Small left pleural effusion has accumulated in the left costophrenic angle. No consolidation or pneumothorax is seen. Pu lmonary vascularity is normal. There is no indication of CHF. Rotator cuff insufficiency is present o n the right side. No acute osseous changes are identified. IMPRESSION: Hypertensive configuration with interval accumulation of a small amount of pleural fluid in the left costophrenic angle. Reported By:
[2017-10-21] MEDS: APRESOLINE TAB 25 MG PO SCH ×3 (06:43→21:22)
[2017-10-21] MEDS: HumuLIN R SUBCUT PRN ×4 (06:44→21:25)
[2017-10-21] MEDS ORDERED: SNACK - Diabetic Appropriate PO SCH ×3 (07:45→20:00)
[2017-10-21] MEDS ORDERED: LEVAQUIN PREMIX IV 750 MG 750 MG/150 ML BAG IV SCH (09:00)
[2017-10-21] MEDS: MIRALAX POWDER (1 DOSE 17GM) PO SCH (09:50)
[2017-10-21] MEDS: COLACE CAP 100 MG PO SCH ×2 (09:50→21:21)
[2017-10-21] MEDS: ASPIRIN EC 81 MG PO SCH (09:50)
[2017-10-21] MEDS: COREG TAB 25 MG PO SCH ×2 (09:51→21:22)
[2017-10-21] MEDS: ROBITUSSIN DM PO SCH ×4 (09:51→21:23)
[2017-10-21] MEDS: LASIX PO SCH (09:51)
[2017-10-21] MEDS: HIPREX PO SCH ×2 (09:51→21:23)
[2017-10-21] MEDS: ZANTAC PO SCH ×2 (09:51→21:21)
[2017-10-21] MEDS: NexIUM PO SCH (09:51)
[2017-10-21] MEDS: COZAAR PO SCH ×2 (09:51→21:22)
[2017-10-21] MEDS ORDERED: TUSSIONEX PENNKINETIC SUSP PO PRN (11:50)
[2017-10-21] MEDS ORDERED: ULTRAM PO PRN (11:50)
--- NOTE | 2017-10-21 14:01 | PCM.PROG ---
Progress Note - Progress Note for Day of Date: 10/21/17 - Subjective Subjective: WAS ADMITTED FOR BRONCHOPNEUMONIA. TODAY, SHE IS ALERT AND ORIENTED, LYING IN BED ON MORNING ROUNDS. SHE CONTINUES WITH COMPLAINTS OF WEAKNESS, PRODUCTIVE COUGH, AND SHORNTESS OF BREATH, BUT REPORTS FEELING SOMEWHAT BETTER THAN YESTERDAY. ON EXAMINATION, HEART IS REGULAR IN RATE AND RHYTHM. CARPENTER ASSISTANT SHOWS NORMAL SINUS RHYTHM. SHE IS NOTED TO BE UTILIZING OXYGEN VIA NASAL CANNULA AT 2L/MIN. LUNGS CONTINUE WITH SCATTERED WHEEZING AND RHONCHI BILATERALLY TO AUSCULTATION. ABDOMEN IS ROUND, SOFT, AND NON-TENDER WITH NORMAL BOWEL SOUNDS NOTED IN ALL QUADRANTS. GOOD RANGE OF MOTION NOTED IN ALL EXTREMITIES. HER VITAL SIGNS THIS MORNING ARE 98.6-64-16-100%-153/67. ABNORMAL LAB VALUES INCLUDE THE FOLLOWING: RBC 3.05, HGB 9.5, HCT 27.4, BUN 26, CREATININE 1.50, GLUCOSE 186, TOTAL PROTEIN 5.6, ALBUMIN 2.8, A/G RATIO 1.0. PRELIMINARY BLOOD CULTURES REPORT NO GROWTH. TODAYS CHEST XRAY REPORTS HYPERTENSIVE CONFIGURATION WITH INTERVAL ACCUMULATION OF A SMALL AMOUNT OF PLEURAL FLUID IN THE LEFT COSTOPHRENIC ANGLE. SHE IS CURRENTLY RECEIVING LEVAQUIN AND RESPIRATORY TREATMENTS. WE WILL CONTINUE WITH CURRENT PLAN OF CARE TODAY. OTHERWISE, WE WILL FOLLOW UP WITH AM LABS AND CHEST XRAY AND CONTINUE TO MONITOR PATIENT. - Past Medical Family Social History Past Med/Fam/Surg Hx: No changes since H&P Allergies: Allergies Penicillins Allergy (Verified 06/03/17 12:13) zolpidem Allergy (Verified 06/03/17 12:13) diazepam Adverse Reaction (Verified 06/03/17 12:13) CONFUSION - Review of Systems ROS: No change since H&P - Vital Signs and I&O's Vital Signs: Temperature 99.3 F Pulse Rate [Apical] 64 Pulse Rate 61 Respiratory Rate 22 Blood Pressure [Right Arm] 141/61 Blood Pressure [Left Femoral 129/56 Artery] Blood Pressure [Left Arm] 156/67 Blood Pressure 175/78 O2 Sat by Pulse Oximetry 100 Intake and Output: Intake & Output 10/19/17 10/20/17 10/21/17 10/22/17 11:59 11:59 11:59 11:59 Intake Total 979 2873 Output Total 700 750 Balance 279 2123 - Physical Exam Oriented: Normal. negative: Time, Person, Place, Not Oriented, Unable to test, Other Eyes: Normal. negative: Blurred Vision, Diplopia, Discharge, Pain, Redness, Photophobia, Other Ear: Normal. negative: Right, Left, Swelling, Ecchymosis, Hemotypanum, Abrasion , Laceration Nose: Normal. negative: Injected, Discharge, Blood, Other Throat: Normal. negative: Tonsillar Hypertrophy, Red, Exudate, Dry, Other Respiratory: Right, Left, Generalized, Wheezes, Rhonchi Cardiovascular: Normal. negative: Tachycardia, Bradycardia, Irregular, S3, S4, Systolic, Diastolic, Murmur, Edema, Other : Normal. negative: Dysuria, Hematuria, Frequency, Discharge, Testicular Pain , Bleeding, , Other Auscultation: Bowel Sounds: Normal. negative: Bruit, Absent, Increased, Decreased, High Pitched, Other Palpation: Normal Tenderness: Normal. negative: Rebound, Guarding, Rigidity Skin: Normal Musculoskeletal: Normal Psychiatric: Normal Mood Description: Calm Affect: Normal Speech Pattern: Clear - Laboratory and Diagnostics Result Diagrams: 10/21/17 04:45 10/21/17 04:45 Labs: 10/19/17 19:11 Blood Blood Culture - Preliminary 10/19/17 19:03 Blood Blood Culture - Preliminary 10/19/17 18:55 Sputum - Expectorated Sputum - Final Laboratory WBC 6.0 X10^3/uL (3.6-10.0) 10/21/17 04:45 RBC 3.05 X10^6/uL (3.5-5.4) L 10/21/17 04:45 Hgb 9.5 g/dL (12.0-16.0) L 10/21/17 04:45 Hct 27.4 % (36.0-47.0) L 10/21/17 04:45 MCV 89.7 fL (80.0-100.0) 10/21/17 04:45 MCH 31.2 pg (27.0-34.0) 10/21/17 04:45 MCHC 34.8 g/dL (33.0-35.0) 10/21/17 04:45 RDW 12.8 % (11.6-16.5) 10/21/17 04:45 Plt Count 164 X10^3/uL (150.0-450.0) 10/21/17 04:45 MPV 8.3 fL (7.4-11.0) 10/21/17 04:45 Neut % 59.0 % (42.0-75.0) 10/21/17 04:45 Lymph % 24.6 % (21.0-51.0) 10/21/17 04:45 [place] % 10.0 % (0.0-13.0) 10/21/17 04:45 Eos % 6.0 % (0.9-2.9) H 10/21/17 04:45 Baso % 0.4 % (0.2-1.0) 10/21/17 04:45 Neut # 3.6 x10^3/uL (2.2-4.8) 10/21/17 04:45 Lymph # 1.5 X10^3/uL (1.3-2.9) 10/21/17 04:45 [place] # 0.6 x10^3/uL (0.3-0.8) 10/21/17 04:45 Eos # 0.4 x10^3/uL (0.0-0.2) H 10/21/17 04:45 Baso # 0.0 X10^3/uL (0.0-0.1) 10/21/17 04:45 Absolute Nucleated RBC 0.0 /100WBC 10/21/17 04:45 Sodium 140 mmol/L (136-145) 10/21/17 04:45 Corrected Sodium 142 mmol/L (136-145) 10/21/17 04:45 Potassium 4.2 mmol/L (3.5-5.1) 10/21/17 04:45 Chloride 106 mmol/L (98-107) 10/21/17 04:45 Carbon Dioxide 26.1 mmol/L (21-32) 10/21/17 04:45 BUN 26 mg/dL (7-18) H 10/21/17 04:45 Creatinine 1.50 mg/dL (0.55-1.02) H 10/21/17 04:45 Est GFR (MDRD) Af Amer 42 (>60) L 10/21/17 04:45 Est GFR (MDRD) Non-Af 35 (>60) L 10/21/17 04:45 Glucose 186 mg/dL (65-99) H 10/21/17 04:45 POC Glucose (mg/dL) 227 mg/dL (65-99) H 10/21/17 11:59 Calcium 8.9 mg/dL (8.5-10.1) 10/21/17 04:45 Corrected Calcium 9.9 mg/dL (8.5-10.1) 10/21/17 04:45 Total Bilirubin 0.20 mg/dL (0.2-1.0) 10/21/17 04:45 AST 20 Units/L (15-37) 10/21/17 04:45 ALT 30 Units/L (12-78) 10/21/17 04:45 Alkaline Phosphatase 76 Units/L (46-116) 10/21/17 04:45 Total Protein 5.6 g/dL (6.4-8.2) L 10/21/17 04:45 Albumin 2.8 g/dL (3.4-5.0) L 10/21/17 04:45 Globulin 2.8 g/dL (2.5-4.5) 10/21/17 04:45 Albumin/Globulin Ratio 1.0 Ratio (1.1-2.1) L 10/21/17 04:45 - Plan (1) Bronchopneumonia Status: Acute Plan: CONTINUE LEVAQUIN, CONTINUE RESPIRATORY TX, CONTINUE TO MONITOR LABS AND CHEST XRAY
[2017-10-21] MEDS ORDERED: MAALOX or MYLANTA PO PRN (19:58)
[2017-10-21] MEDS ORDERED: LANTUS SC SCH (21:00)
[2017-10-21] MEDS ORDERED: KLONOPIN TAB 0.5 MG PO SCH (21:00)
[2017-10-21] MEDS ORDERED: PRAVACHOL PO SCH ×2 (21:00)
[2017-10-21] MEDS ORDERED: ZyrTEC TAB 10 MG PO SCH (21:00)
[2017-10-21] MEDS ORDERED: OXYBUTYNIN CHLORIDE ER PO SCH (21:00)
[2017-10-22] MEDS: DUONEB 0.5 MG/3 MG NEB SCH ×3 (00:42→12:36)
[2017-10-22] MEDS ORDERED: NS 1/2 1000 ML IV 1,000 ML IV ONE (03:32)
[2017-10-22 05:28] LABS: BASOPHILS % (AUTO) 0.6 % (0.2-1.0); EOSINOPHILS # (AUTO) 0.4 x10^3/uL (0.0-0.2); EOSINOPHILS % (AUTO) 6.8 % (0.9-2.9); HEMATOCRIT 27.6 % (36.0-47.0); HEMOGLOBIN 9.6 g/dL (12.0-16.0); LYMPHOCYTES # (AUTO) 1.3 X10^3/uL (1.3-2.9); LYMPHOCYTES % (AUTO) 23.1 % (21.0-51.0); MEAN CORPUSCULAR HEMOGLOBIN 30.8 pg (27.0-34.0); MEAN CORPUSCULAR HGB CONC 34.9 g/dL (33.0-35.0); MEAN CORPUSCULAR VOLUME 88.3 fL (80.0-100.0); MEAN PLATELET VOLUME 8.1 fL (7.4-11.0); MONOCYTES # (AUTO) 0.6 x10^3/uL (0.3-0.8); MONOCYTES % (AUTO) 10.1 % (0.0-13.0); NEUTROPHILS # (AUTO) 3.4 x10^3/uL (2.2-4.8); NEUTROPHILS % (AUTO) 59.4 % (42.0-75.0); PLATELET COUNT 188 X10^3/uL (150.0-450.0); RED BLOOD COUNT 3.13 X10^6/uL (3.5-5.4); WHITE BLOOD COUNT 5.7 X10^3/uL (3.6-10.0)
[2017-10-22] MEDS: APRESOLINE TAB 25 MG PO SCH ×2 (05:29→14:06)
[2017-10-22] MEDS: NS 1/2 1000 ML IV 1,000 ML IV SCH (05:29)
[2017-10-22 05:40] LABS: ALBUMIN 2.7 g/dL (3.4-5.0); CALCIUM 8.7 mg/dL (8.5-10.1); CARBON DIOXIDE 29.8 mmol/L (21-32); COR CA(FOR HYPOALB) 9.7 mg/dL (8.5-10.1); CREATININE 1.4 mg/dL (0.55-1.02); TOTAL PROTEIN 5.8 g/dL (6.4-8.2)
--- NOTE | 2017-10-22 06:05 | RAD ---
Examination: Portable AP chest History: SOB Comparison reference 10/21/2017 Findings: Persistent cardiac prominence with essentially clear lungs. A definite pleural effusion is not now identified. There is no evidence for pneumonia or pneumothorax. Impression: No acute chest disease demonstrated. Reported By:
[2017-10-22] MEDS: HumuLIN R SUBCUT PRN ×2 (06:25→12:23)
[2017-10-22] MEDS ORDERED: LASIX PO SCH (09:00)
[2017-10-22] MEDS ORDERED: MIRALAX POWDER (1 DOSE 17GM) PO SCH (09:00)
[2017-10-22] MEDS ORDERED: ASPIRIN EC 81 MG PO SCH (09:00)
[2017-10-22] MEDS ORDERED: NexIUM PO SCH (09:00)
[2017-10-22] MEDS ORDERED: PROzac PO SCH (09:00)
[2017-10-22] MEDS: ZANTAC PO SCH (10:14)
[2017-10-22] MEDS: ROBITUSSIN DM PO SCH ×2 (10:14→12:22)
[2017-10-22] MEDS: COREG TAB 25 MG PO SCH (10:14)
[2017-10-22] MEDS: COLACE CAP 100 MG PO SCH (10:30)
[2017-10-22] MEDS: COZAAR PO SCH (10:30)
[2017-10-22] MEDS: HIPREX PO SCH (10:41)
[2017-10-22 13:57] VITALS: BP 141/64
[2017-10-23] MEDS ORDERED: LEVAQUIN PREMIX IV 750 MG 750 MG/150 ML BAG IV SCH (09:00)
[2017-10-27] MEDS ORDERED: CATAPRES-TTS-3 TD SCH (14:00)
== END 2017-10-22 14:10 | DRG 195 ==
LOC: ICU 17:58
PROVIDERS: ADMIT Internal Medicine; ATTEND Internal Medicine
DX: J18.0 Bronchopneumonia, unspecified organism (principal); R53.1 Weakness; R06.02 Shortness of breath; E03.8 Other specified hypothyroidism; E11.65 Type 2 diabetes mellitus with hyperglycemia; E78.2 Mixed hyperlipidemia; F06.31 Mood disorder due to known physiological condition with depressive features; I10 Essential (primary) hypertension; J06.9 Acute upper respiratory infection, unspecified
CPT/HCPCS: 36415; 71010; 71020; 80053; 85025; 87040; 87070; 87205; 94640; A4222; J1815; J1956; J7620

== ENCOUNTER → 2017-10-19 | Outpatient (CLI) | payer OTHER ==
[2017-10-19 11:53] LABS: ALANINE AMINOTRANSFERASE 36 Units/L (12-78); ALBUMIN 3.4 g/dL (3.4-5.0); ALKALINE PHOSPHATASE 89 Units/L (46-116); ASPARTATE AMINO TRANSFERASE 24 Units/L (15-37); BLOOD UREA NITROGEN 33 mg/dL (7-18); CHLORIDE 99 mmol/L (98-107); COR NA(FOR HYPERGLY) 133 mmol/L (136-145); SODIUM 130 mmol/L (136-145); TOTAL PROTEIN 6.5 g/dL (6.4-8.2); eGFR BLACK RACES 37 (>60); eGFR NON BLACK RACES 30 (>60)
[2017-10-19 11:54] LABS: BASOPHILS % (AUTO) 0.4 % (0.2-1.0); EOSINOPHILS # (AUTO) 0.5 x10^3/uL (0.0-0.2); EOSINOPHILS % (AUTO) 7.1 % (0.9-2.9); HEMOGLOBIN 10.7 g/dL (12.0-16.0); LYMPHOCYTES # (AUTO) 1.3 X10^3/uL (1.3-2.9); LYMPHOCYTES % (AUTO) 17.5 % (21.0-51.0); MEAN CORPUSCULAR HEMOGLOBIN 30.3 pg (27.0-34.0); MEAN CORPUSCULAR HGB CONC 33.4 g/dL (33.0-35.0); MEAN CORPUSCULAR VOLUME 90.8 fL (80.0-100.0); MEAN PLATELET VOLUME 8.7 fL (7.4-11.0); MONOCYTES # (AUTO) 0.6 x10^3/uL (0.3-0.8); MONOCYTES % (AUTO) 7.6 % (0.0-13.0); NEUTROPHILS # (AUTO) 4.9 x10^3/uL (2.2-4.8); NEUTROPHILS % (AUTO) 67.4 % (42.0-75.0); PLATELET COUNT 200 X10^3/uL (150.0-450.0); RED BLOOD COUNT 3.52 X10^6/uL (3.5-5.4); RED CELL DISTRIBUTION WIDTH 13.1 % (11.6-16.5); WHITE BLOOD COUNT 7.3 X10^3/uL (3.6-10.0)
--- NOTE | 2017-10-19 12:15 | RAD ---
Examination: Chest, PA and lateral views History: Cough and SOB Comparison reference 09/26/2017 Findings: Continued normal heart size with dilated aorta. No acute consolidation, pneumothorax or ple ural fluid. Stable appearance of mild linear fibrotic scarring in the parahilar areas. Impression: No significant interval change; no acute disease. Reported By:
== END ==
LOC: RAD 10:34
PROVIDERS: ATTEND Internal Medicine
DX: J06.9 Acute upper respiratory infection, unspecified (principal)
CPT/HCPCS: 36415; 71020; 80053; 85025

== ENCOUNTER → 2017-12-15 | Outpatient (CLI) | payer OTHER ==
--- NOTE | 2017-12-15 18:48 | RAD ---
HISTORY: Cough and congestion Study: Single-view chest Comparison: 10/22/2017 Findings: The trachea is midline. The lung apices are not included on exam. The cardiac silhouette is mildly en larged in size. There is soft tissue prominence of the right hilum, possibly representing an enlarged right pulmonary artery. No acute infiltrate, consolidation, or pleural effusion is identified. The b rui structures are grossly intact. IMPRESSION: 1. Mild cardiomegaly without evidence of acute cardiopulmonary process. Reported By:
== END ==
LOC: RAD 17:54
PROVIDERS: ATTEND Internal Medicine
DX: R05 Cough (principal); R09.89 Other specified symptoms and signs involving the circulatory and respiratory systems
CPT/HCPCS: 71045

== ENCOUNTER → 2018-01-07 | Outpatient (CLI) | payer OTHER ==
--- NOTE | 2018-01-07 11:26 | RAD ---
Examination: Chest, PA and lateral views History: URI Comparison reference 12/15/2017 Findings: Heart size normal. Lungs are grossly clear although detail is limited by extensive bilatera l overlying clothing artifact. There is no obvious consolidation, pleural fluid or pneumothorax. Impression: Grossly negative chest, see above technical reservation regarding clothing artifact. Reported By:
== END | disposition home or self-care (01) ==
LOC: RAD 10:14
PROVIDERS: ATTEND Internal Medicine
DX: J06.9 Acute upper respiratory infection, unspecified (principal)
CPT/HCPCS: 71046

== ENCOUNTER 2018-04-04 18:22 | Observation (INO) | payer OTHER ==
[2018-04-04] MEDS ORDERED: TUSSIONEX PENNKINETIC SUSP PO PRN (19:54)
[2018-04-04] MEDS ORDERED: PHARMACY CONSULT - DOSE _____ XX SCH (19:54)
[2018-04-04] MEDS ORDERED: LEVAQUIN PREMIX IV 500 MG 500 MG/100 ML BAG IV ONE ×2 (19:54→22:00)
[2018-04-04] MEDS ORDERED: FORTAZ or TAZICEF INJ 1 GM in NS 100 ML IV + SPIKE MINIBAG* 100 ML IV ONE (19:54)
[2018-04-04 20:28] LABS: BASOPHILS # (AUTO) 0.1 X10^3/uL (0.0-0.1); BASOPHILS % (AUTO) 0.8 % (0.2-1.0); EOSINOPHILS # (AUTO) 0.7 x10^3/uL (0.0-0.2); EOSINOPHILS % (AUTO) 10.2 % (0.9-2.9); HEMATOCRIT 30.9 % (36.0-47.0); HEMOGLOBIN 10.8 g/dL (12.0-16.0); LYMPHOCYTES # (AUTO) 1.2 X10^3/uL (1.3-2.9); LYMPHOCYTES % (AUTO) 18.8 % (21.0-51.0); MEAN CORPUSCULAR HEMOGLOBIN 32.2 pg (27.0-34.0); MEAN CORPUSCULAR HGB CONC 34.8 g/dL (33.0-35.0); MEAN CORPUSCULAR VOLUME 92.5 fL (80.0-100.0); MEAN PLATELET VOLUME 8.4 fL (7.4-11.0); MONOCYTES # (AUTO) 0.5 x10^3/uL (0.3-0.8); MONOCYTES % (AUTO) 7.7 % (0.0-13.0); NEUTROPHILS # (AUTO) 4.1 x10^3/uL (2.2-4.8); NEUTROPHILS % (AUTO) 62.5 % (42.0-75.0); PLATELET COUNT 194 X10^3/uL (150.0-450.0); RED BLOOD COUNT 3.34 X10^6/uL (3.5-5.4); RED CELL DISTRIBUTION WIDTH 13.5 % (11.6-16.5); WHITE BLOOD COUNT 6.6 X10^3/uL (3.6-10.0)
--- NOTE | 2018-04-04 20:37 | RAD ---
HISTORY: Cough Study: Single view of the chest. Comparison: 02/12/2018 Findings: The cardiomediastinal silhouette is normal. No focal consolidations, pleural effusions or pneumothora x. Osseous structures demonstrate no acute abnormality. IMPRESSION: 1. No acute cardiopulmonary process. Reported By:
[2018-04-04 20:45] LABS: ALBUMIN 3.2 g/dL (3.4-5.0); CALCIUM 8.4 mg/dL (8.5-10.1); CARBON DIOXIDE 29.6 mmol/L (21-32); CREATININE 1.93 mg/dL (0.55-1.02); TOTAL PROTEIN 6.3 g/dL (6.4-8.2)
[2018-04-04] MEDS ORDERED: NS 1/2 1000 ML IV 1,000 ML IV ONE (21:50)
[2018-04-04 22:16] VITALS: BMI 24.0
[2018-04-04] MEDS: ROBITUSSIN DM PO SCH (22:31)
[2018-04-04] MEDS: NS 1/2 1000 ML IV 1,000 ML IV SCH (22:31)
[2018-04-04] MEDS: FORTAZ or TAZICEF INJ 1 GM in NS 100 ML IV + SPIKE MINIBAG* 100 ML IV SCH (22:44)
[2018-04-05] MEDS ORDERED: SALINE 3% 15 ML NEB TX ONE (01:22)
[2018-04-05] MEDS ORDERED: SALINE 3% 15 ML NEB TX NEB ONE (01:30)
[2018-04-05] MEDS: DUONEB 0.5 MG/3 MG NEB SCH ×5 (05:53→21:36)
[2018-04-05 06:23] LABS: BASOPHILS % (AUTO) 0.7 % (0.2-1.0); EOSINOPHILS # (AUTO) 0.7 x10^3/uL (0.0-0.2); EOSINOPHILS % (AUTO) 10.7 % (0.9-2.9); HEMATOCRIT 29.2 % (36.0-47.0); HEMOGLOBIN 9.8 g/dL (12.0-16.0); LYMPHOCYTES # (AUTO) 1.5 X10^3/uL (1.3-2.9); LYMPHOCYTES % (AUTO) 23.2 % (21.0-51.0); MEAN CORPUSCULAR HEMOGLOBIN 31.4 pg (27.0-34.0); MEAN CORPUSCULAR HGB CONC 33.8 g/dL (33.0-35.0); MEAN PLATELET VOLUME 8.9 fL (7.4-11.0); MONOCYTES # (AUTO) 0.6 x10^3/uL (0.3-0.8); MONOCYTES % (AUTO) 9.6 % (0.0-13.0); NEUTROPHILS # (AUTO) 3.7 x10^3/uL (2.2-4.8); NEUTROPHILS % (AUTO) 55.8 % (42.0-75.0); PLATELET COUNT 168 X10^3/uL (150.0-450.0); RED BLOOD COUNT 3.14 X10^6/uL (3.5-5.4); RED CELL DISTRIBUTION WIDTH 13.5 % (11.6-16.5); WHITE BLOOD COUNT 6.6 X10^3/uL (3.6-10.0)
[2018-04-05 06:51] LABS: ALBUMIN 2.8 g/dL (3.4-5.0); CALCIUM 8.2 mg/dL (8.5-10.1); CARBON DIOXIDE 29.2 mmol/L (21-32); COR CA(FOR HYPOALB) 9.2 mg/dL (8.5-10.1); CREATININE 1.67 mg/dL (0.55-1.02); TOTAL PROTEIN 5.6 g/dL (6.4-8.2)
--- NOTE | 2018-04-05 08:21 | DR.H&P ---
H&P - History & Physical for Day of: H&P Date: 04/04/18 - Chief Complaint Chief Complaint: COUGH, SHORT OF BREATH - Allergies Allergies/Adverse Reactions: Allergies Allergy/AdvReac Type Severity Reaction Status Date / Time Penicillins Allergy Verified 04/04/18 19:58 zolpidem Allergy Verified 04/04/18 19:58 diazepam AdvReac CONFUSION Verified 04/04/18 19:58 - History of Present Illness History of Present Illness: IS A 87 YEARR OLD RESIDENT OF [facility]. SHE WAS ADMITTED TO THE HOSPITAL A DIRECT ADMISSION FOR COMPLAINTS OF A PRODUCTIVE COUGH AND SHORTNESS OF BREATH. PATIENT REPORTS THAT SYMPTOMS BEGAN TWO DAYS AGO AND HAS PROGRESSIVELY GOTTEN WORSE. [facility] STAFF REPORTS THAT PATIENT HAS HAD A LOW GRADE FEVER OF 99.0 OR GREATER OVER THE PAST TWO DAYS. ON EXAMINATION, BILATERAL LUNGS ARE NOTED WITH SCATTERED WHEEZING. ON ARRIVAL, HER VITALS WERE 98.4-70-18-95%-119/58. LABS WERE OBTAINED. ABNORMAL LAB VALUES INCLUDE THE FOLLOWING: RBC 3.34, HGB 10.8, HCT 30.9, BUN 48, CREATININE 1.93, GLUCOSE 258, CALCIUM 8.4, AST 13, TOTAL PROTEIN 6.3, ALBUMIN 3.2. PATIENT HAS BEEN TREATED AT LEAST TWICE IN THE LAST SIX MONTHS FOR PNEUMONIA. SHE WAS ADMITTED TO THE HOSPITAL FOR FURTHER EVALUATION AND TREATMENT OF BRONCHOPNEUMONIA. SHE WAS STARTED ON THE PNEUMONIA PROTOCOL ON FORTAZ 1GM IV DAILY AND LEVAQUIN 250MG IV Q48H. SHE WAS ALSO STARTED ON BREATHING TREATMENTS AND SUPPLEMENTAL OXYGEN WELL GENTAL IV FLUIDS FOR HYDRATION. WE PLAN TO FOLLOW UP WITH AM LABS AND CHEST XRAY AND CONTINUE TO MONITOR PATIENT. - Past Medical History Past Medical History: Anemia, Arthritis, CHF, Coronary Artery Disease, CVA, Depression, Diabetes, Gout, Hypertension, ID, PUD, Renal Disease Additional Medical History: Legally Blind, Tremors, Bronchitis, Constipation, Frequent UTI's, Gout, Breast Cancer, Fracture of Wrist, Fracture of Right Femur , TIAs, back pain, DDD - Past Surgical History Surgical History: Cholecystectomy, Other Additional Surgical History: back surgery, left lumpectomy - Family History Family Medical History: Diabetes Mellitus, Cancer, ID, Hypertension - Social History Does patient currently use any type of tobacco product: No Have you used tobacco products in the last 12 months: No Type of Tobacco Use: None Alcohol Use: None Drug Use: None - Medications Home Medications: Amino Acids/Protein Hydrolys [Pro-Stat Awc Liquid Packet] 1 pack PO BID [History Confirmed 04/04/18] Amlodipine Besylate [NORVASC 5 MG *] 5 mg PO DAILY 04/04/18 [History Confirmed 04/04/18] Budesonide-Formoterol [SYMBICORT INH 160-4.5 mcg (10.2 g) *] 1 puff INH BID [History Confirmed 04/04/18] Clonidine HCl [CATAPRES-TTS patch 0.3 mg/24 hr 7-day *] 1 ea PATCH WEEKLY [History Confirmed 04/04/18] Ferrous Fumarate/Folic Acid [Hemocyte-F Tablet] 1 ea PO DAILY 04/04/18 [History Confirmed 04/04/18] Hydralazine HCl 25 mg PO TID 04/04/18 [History Confirmed 04/04/18] Ipratropium/Albuterol Nebule [DUONEB 0.5 MG/3 MG NEBULE *] 1 ea NEB TID PRN [History Confirmed 04/04/18] Metformin HCl [GLUCOPHAGE 500 MG *] 500 mg PO BID 04/04/18 [History Confirmed ] Misc Home Med [Patient's Home Medication] 2 ea PO DAILY 04/04/18 [History Confirmed 04/04/18] Olanzapine [ZYPREXA 2.5 MG *] 1.25 mg PO DAILY 04/04/18 [History Confirmed 04/04] Pantoprazole Sodium [Protonix] 40 mg PO DAILY 04/04/18 [History Confirmed ] Polyvinyl Alcohol [Artificial Tears] 1 drop EACHEYE BID 04/04/18 [History Confirmed 04/04/18] Umeclidinium-Vilanterol [Anoro Ellipta 62.5-25 Mcg INH] 1 puff INH DAILY [History Confirmed 04/04/18] - Review of Systems Constitutional: Fever, Chills, Weakness, Malaise Eyes: No Symptoms Reported ENT: Nose Congestion Respiratory: Cough, Shortness of Breath, Wheezing Cardiovascular: No Symptoms Reported Gastrointestinal: No Symptoms Reported Genitourinary: No Symptoms Reported Musculoskeletal: No Symptoms Reported Skin: No Symptoms Reported Neurological: Weakness - Physical Exam Vital Signs: Temperature 98 F Pulse Rate [Right] 68 Pulse Rate 71 Respiratory Rate 20 Blood Pressure [Right Arm] 119/58 Blood Pressure [Left Femoral 129/56 Artery] Blood Pressure [Left Arm] 130/60 Blood Pressure 141/64 O2 Sat by Pulse Oximetry 95 Oriented: Normal Eyes: Normal Ear: Normal Nose: Normal Throat: Normal Respiratory: Wheezes Throughout Cardiovascular: Normal. negative: S3, S4, Murmur, Edema : Normal Auscultation: Bowel Sounds: Normal Palpation: Normal Tenderness: Normal Skin: Normal Musculoskeletal: Normal Psychiatric: Normal Mood Description: Calm Affect: Normal Speech Pattern: Clear - Assessment/Plan (1) Bronchopneumonia Status: Acute Plan: admit, pneumonia protocol, fortaz iv, levaquin iv, respiratory treatments , supplemental oxygen, continue to monitor
[2018-04-05] MEDS: ROBITUSSIN DM PO SCH ×4 (09:40→21:05)
[2018-04-05] MEDS ORDERED: TUSSIONEX PENNKINETIC SUSP PO PRN (12:08)
[2018-04-05] MEDS ORDERED: TESSALON PERLES PO PRN (12:08)
[2018-04-05] MEDS ORDERED: ULTRAM PO PRN (12:08)
[2018-04-05] MEDS: HumuLIN R SUBCUT PRN ×2 (12:46→16:55)
[2018-04-05] MEDS: NS 1/2 1000 ML IV 1,000 ML IV SCH (12:48)
[2018-04-05] MEDS ORDERED: CATAPRES-TTS-3 TD SCH (13:00)
[2018-04-05] MEDS ORDERED: NS 1/2 1000 ML IV 1,000 ML IV ONE (13:36)
[2018-04-05] MEDS ORDERED: GLUCOPHAGE ONE ×2 (14:24→20:41)
[2018-04-05] MEDS: MIRALAX POWDER (1 DOSE 17GM) PO SCH (14:28)
[2018-04-05] MEDS: GLUCOPHAGE PO SCH ×2 (14:28→21:07)
[2018-04-05] MEDS: NORVASC TAB 5 MG PO SCH (14:28)
[2018-04-05] MEDS: APRESOLINE TAB 25 MG PO SCH ×2 (14:29→21:10)
[2018-04-05] MEDS: PROzac PO SCH (14:29)
[2018-04-05] MEDS: HEMOCYTE-PLUS PO SCH (14:29)
[2018-04-05] MEDS: PROTONIX TAB 40 MG PO SCH (14:30)
--- NOTE | 2018-04-05 19:29 | PCM.PROG ---
Progress Note - Progress Note for Day of Date: 04/05/18 - Subjective Subjective: WAS ADMITTED FOR BRONCHOPNEUMONIA. SHE IS ALERT AND ORIENTED, LYING IN BED ON MORNING ROUNDS. SHE CONTINUES WITH COUGH AND SHORTNESS OF BREATH. ON EXAMINATION, HEART IS REGULAR IN RATE AND RHYTHM. BILATERAL LUNGS CONTINUE WITH SCATTERED WHEEZING. ABDOMEN IS ROUND, SOFT, AND NON-TENDER WITH NORMAL BOWEL SOUNDS NOTED IN ALL QUADRANTS. HER VITALS THIS MORNING ARE 98.0-71-20-91%-130/60. LABS WERE OBTAINED. ABNORMAL LAB VALUES INCLUDE THE FOLLOWING: RBC 3.14, HGB 9.8, HCT 29.2, BUN 46, CREATININE 1.67, GLUCOSE 139, CALCIUM 8.2, TOTAL PROTEIN 5.6, ALBUMIN 2.8. SHE IS CURRENTLY RECEIVING IV ANTIBIOTICS, SUPPLEMENTAL OXYGEN, AND RESPIRATORY TREATMENTS. WE WILL CONTINUE WITH CURRENT PLAN OF CARE TODAY. OTHERWISE, WE WILL FOLLOW UP WITH AM LABS AND CONTINUE TO MONITOR PATIENT. - Past Medical Family Social History Past Med/Fam/Surg Hx: No changes since H&P Allergies: Allergies Penicillins Allergy (Verified 04/04/18 19:58) zolpidem Allergy (Verified 04/04/18 19:58) diazepam Adverse Reaction (Verified 04/04/18 19:58) CONFUSION - Review of Systems ROS: No change since H&P - Vital Signs and I&O's Vital Signs: Temperature 98.5 F Pulse Rate [Right] 86 Pulse Rate 71 Respiratory Rate 20 Blood Pressure [Right Arm] 194/81 Blood Pressure [Left Femoral 129/56 Artery] Blood Pressure [Left Arm] 162/72 Blood Pressure 141/64 O2 Sat by Pulse Oximetry 95 Intake and Output: Intake & Output 04/03/18 04/04/18 04/05/18 04/06/18 11:59 11:59 11:59 11:59 Intake Total 1215 1144 Output Total 300 Balance 915 1144 - Physical Exam Oriented: Normal Eyes: Normal Ear: Normal Nose: Normal Throat: Normal Respiratory: Normal Cardiovascular: Normal. negative: S3, S4, Murmur, Edema : Normal Auscultation: Bowel Sounds: Normal Palpation: Normal Tenderness: Normal Skin: Normal Musculoskeletal: Normal Psychiatric: Normal Mood Description: Calm Affect: Normal Speech Pattern: Clear - Laboratory and Diagnostics Result Diagrams: 04/05/18 05:08 04/05/18 05:08 Labs: Laboratory WBC 6.6 X10^3/uL (3.6-10.0) 04/05/18 05:08 RBC 3.14 X10^6/uL (3.5-5.4) L 04/05/18 05:08 Hgb 9.8 g/dL (12.0-16.0) L 04/05/18 05:08 Hct 29.2 % (36.0-47.0) L 04/05/18 05:08 MCV 93.0 fL (80.0-100.0) 04/05/18 05:08 MCH 31.4 pg (27.0-34.0) 04/05/18 05:08 MCHC 33.8 g/dL (33.0-35.0) 04/05/18 05:08 RDW 13.5 % (11.6-16.5) 04/05/18 05:08 Plt Count 168 X10^3/uL (150.0-450.0) 04/05/18 05:08 MPV 8.9 fL (7.4-11.0) 04/05/18 05:08 Neut % (Auto) 55.8 % (42.0-75.0) 04/05/18 05:08 Lymph % (Auto) 23.2 % (21.0-51.0) 04/05/18 05:08 [place] % (Auto) 9.6 % (0.0-13.0) 04/05/18 05:08 Eos % (Auto) 10.7 % (0.9-2.9) H 04/05/18 05:08 Baso % (Auto) 0.7 % (0.2-1.0) 04/05/18 05:08 Neut # (Auto) 3.7 x10^3/uL (2.2-4.8) 04/05/18 05:08 Lymph # (Auto) 1.5 X10^3/uL (1.3-2.9) 04/05/18 05:08 [place] # (Auto) 0.6 x10^3/uL (0.3-0.8) 04/05/18 05:08 Eos # (Auto) 0.7 x10^3/uL (0.0-0.2) H 04/05/18 05:08 Baso # (Auto) 0.0 X10^3/uL (0.0-0.1) 04/05/18 05:08 Absolute Nucleated RBC 0.1 /100WBC 04/05/18 05:08 Sodium 141 mmol/L (136-145) 04/05/18 05:08 Corrected Sodium 142 mmol/L (136-145) 04/05/18 05:08 Potassium 4.2 mmol/L (3.5-5.1) 04/05/18 05:08 Chloride 105 mmol/L (98-107) 04/05/18 05:08 Carbon Dioxide 29.2 mmol/L (21-32) 04/05/18 05:08 BUN 46 mg/dL (7-18) H 04/05/18 05:08 Creatinine 1.67 mg/dL (0.55-1.02) H 04/05/18 05:08 Est GFR (MDRD) Af Amer 37 (>60) L 04/05/18 05:08 Est GFR (MDRD) Non-Af 31 (>60) L 04/05/18 05:08 Glucose 139 mg/dL (65-99) H 04/05/18 05:08 POC Glucose (mg/dL) 243 mg/dL (65-99) H 04/05/18 16:47 Calcium 8.2 mg/dL (8.5-10.1) L 04/05/18 05:08 Corrected Calcium 9.2 mg/dL (8.5-10.1) 04/05/18 05:08 Total Bilirubin 0.20 mg/dL (0.2-1.0) 04/05/18 05:08 AST 16 Units/L (15-37) 04/05/18 05:08 ALT 26 Units/L (12-78) 04/05/18 05:08 Alkaline Phosphatase 60 Units/L (46-116) 04/05/18 05:08 Total Protein 5.6 g/dL (6.4-8.2) L 04/05/18 05:08 Albumin 2.8 g/dL (3.4-5.0) L 04/05/18 05:08 Globulin 2.8 g/dL (2.5-4.5) 04/05/18 05:08 Albumin/Globulin Ratio 1.0 Ratio (1.1-2.1) L 04/05/18 05:08 - Plan (1) Bronchopneumonia Status: Acute Plan: pneumonia protocol, fortaz iv, levaquin iv, respiratory treatments, supplemental oxygen, continue to monitor
[2018-04-05] MEDS ORDERED: SNACK - Diabetic Appropriate PO SCH (20:00)
[2018-04-05] MEDS: ARTIFICIAL TEARS DROPS EACHEYE SCH (20:57)
[2018-04-05] MEDS ORDERED: OXYBUTYNIN CHLORIDE ER PO SCH (21:00)
[2018-04-05] MEDS ORDERED: LANTUS SC SCH (21:00)
[2018-04-05] MEDS ORDERED: PRAVACHOL PO SCH (21:00)
[2018-04-05] MEDS ORDERED: KLONOPIN TAB 0.5 MG PO SCH (21:00)
[2018-04-05] MEDS ORDERED: PATIENT'S HOME MEDICATION (Budesonide-Formoterol 1 PUFF) INH SCH (21:00)
[2018-04-05] MEDS: FORTAZ or TAZICEF INJ 1 GM in NS 100 ML IV + SPIKE MINIBAG* 100 ML IV SCH (21:01)
[2018-04-05] MEDS: ZANTAC PO SCH (21:05)
[2018-04-05] MEDS: COLACE CAP 100 MG PO SCH (21:06)
[2018-04-05] MEDS: COREG TAB 25 MG PO SCH (21:07)
[2018-04-05] MEDS: HIPREX PO SCH ×2 (21:08→21:21)
[2018-04-05] MEDS: AMINO ACIDS PO SCH (21:22)
[2018-04-05] MEDS: PROTEIN HYDROLYS PO SCH (21:22)
[2018-04-05] MEDS: [UNRECOGNIZED DRUG - OTHER] PO SCH (21:22)
[2018-04-06] MEDS: DUONEB 0.5 MG/3 MG NEB SCH ×4 (01:05→09:56)
[2018-04-06] MEDS ORDERED: NS 1/2 1000 ML IV 1,000 ML IV ONE (02:29)
[2018-04-06] MEDS: NS 1/2 1000 ML IV 1,000 ML IV SCH (03:24)
[2018-04-06 05:41] LABS: BASOPHILS # (AUTO) 0.1 X10^3/uL (0.0-0.1); BASOPHILS % (AUTO) 1.3 % (0.2-1.0); EOSINOPHILS # (AUTO) 0.7 x10^3/uL (0.0-0.2); EOSINOPHILS % (AUTO) 11.1 % (0.9-2.9); HEMATOCRIT 28.7 % (36.0-47.0); LYMPHOCYTES # (AUTO) 1.5 X10^3/uL (1.3-2.9); MEAN CORPUSCULAR HEMOGLOBIN 32.3 pg (27.0-34.0); MEAN CORPUSCULAR VOLUME 92.3 fL (80.0-100.0); MEAN PLATELET VOLUME 8.7 fL (7.4-11.0); MONOCYTES # (AUTO) 0.6 x10^3/uL (0.3-0.8); MONOCYTES % (AUTO) 9.5 % (0.0-13.0); NEUTROPHILS # (AUTO) 3.8 x10^3/uL (2.2-4.8); NEUTROPHILS % (AUTO) 56.1 % (42.0-75.0); PLATELET COUNT 162 X10^3/uL (150.0-450.0); RED BLOOD COUNT 3.11 X10^6/uL (3.5-5.4); RED CELL DISTRIBUTION WIDTH 13.5 % (11.6-16.5); WHITE BLOOD COUNT 6.8 X10^3/uL (3.6-10.0)
[2018-04-06] MEDS: APRESOLINE TAB 25 MG PO SCH ×2 (05:45→14:19)
[2018-04-06 05:56] LABS: ALANINE AMINOTRANSFERASE 25 Units/L (12-78); ALBUMIN 2.7 g/dL (3.4-5.0); ALKALINE PHOSPHATASE 61 Units/L (46-116); ASPARTATE AMINO TRANSFERASE 13 Units/L (15-37); BLOOD UREA NITROGEN 31 mg/dL (7-18); CALCIUM 7.9 mg/dL (8.5-10.1); CARBON DIOXIDE 28.2 mmol/L (21-32); CHLORIDE 106 mmol/L (98-107); COR CA(FOR HYPOALB) 8.9 mg/dL (8.5-10.1); CREATININE 1.38 mg/dL (0.55-1.02); SODIUM 140 mmol/L (136-145); TOTAL PROTEIN 5.5 g/dL (6.4-8.2); eGFR BLACK RACES 47 (>60); eGFR NON BLACK RACES 38 (>60)
--- NOTE | 2018-04-06 06:43 | RAD ---
HISTORY: Productive cough for few days, shortness of breath. Study: Prior history of hypertension, diabetes, left breast cancer. Comparison: 04/04/2018. Findings: Trachea is midline. There is mild cardiomegaly with aortic uncoiling. Pulmonary vascular congestion i s present. No infiltrate, CHF or pleural fluid is seen. There is again relative elevation of the righ t hemidiaphragm. Close apposition of the right humeral head to the undersurface of the acromion likel y indicates rotator cuff insufficiency. IMPRESSION: Hypertensive configuration. No acute cardiopulmonary disease. Reported By:
[2018-04-06] MEDS ORDERED: GLUCOPHAGE ONE (08:33)
[2018-04-06] MEDS ORDERED: PATIENT'S HOME MEDICATION (Umeclidinium-Vilanterol 1 PUFF) INH SCH (09:00)
[2018-04-06] MEDS ORDERED: PATIENT'S HOME MEDICATION PO SCH (09:00)
[2018-04-06] MEDS ORDERED: COZAAR PO SCH (09:00)
[2018-04-06] MEDS: ROBITUSSIN DM PO SCH ×2 (09:05→14:19)
[2018-04-06] MEDS: ZANTAC PO SCH (09:05)
[2018-04-06] MEDS: MIRALAX POWDER (1 DOSE 17GM) PO SCH (09:05)
[2018-04-06] MEDS: HEMOCYTE-PLUS PO SCH (09:06)
[2018-04-06] MEDS: COLACE CAP 100 MG PO SCH (09:06)
[2018-04-06] MEDS: PROzac PO SCH (09:06)
[2018-04-06] MEDS: COREG TAB 25 MG PO SCH (09:06)
[2018-04-06] MEDS: PROTONIX TAB 40 MG PO SCH (09:06)
[2018-04-06] MEDS: GLUCOPHAGE PO SCH (09:07)
[2018-04-06] MEDS: ARTIFICIAL TEARS DROPS EACHEYE SCH (09:10)
[2018-04-06] MEDS: AMINO ACIDS PO SCH (09:11)
[2018-04-06] MEDS: [UNRECOGNIZED DRUG - OTHER] PO SCH (09:11)
[2018-04-06] MEDS: PROTEIN HYDROLYS PO SCH (09:11)
[2018-04-06] MEDS: NORVASC TAB 5 MG PO SCH (09:14)
[2018-04-06 13:17] VITALS: BP 152/68
[2018-04-06] MEDS: HIPREX PO SCH (13:32)
[2018-04-06] MEDS ORDERED: ZyrTEC TAB 10 MG PO SCH (21:00)
[2018-04-06] MEDS ORDERED: LEVAQUIN PREMIX IV 250 MG 250 MG/50 ML BAG IV SCH (21:00)
== END 2018-04-06 14:00 ==
LOC: MED/SURG 18:22
PROVIDERS: ADMIT Internal Medicine; ATTEND Internal Medicine
DX: J18.0 Bronchopneumonia, unspecified organism (principal); R06.02 Shortness of breath; Z86.79 Personal history of other diseases of the circulatory system; I10 Essential (primary) hypertension; Z90.49 Acquired absence of other specified parts of digestive tract
CPT/HCPCS: 36415; 71045; 80053; 85025; 87040; 94640; 94760; A4222; G8978; G8979; G0378; J0713; J1815; J1956; J7620

== ENCOUNTER 2019-01-11 14:43 | Inpatient (IN) ==
[2019-01-11 20:18] LABS: ABG BASE EXCESS 2.3 mmol/L (-2.0-2.0); ABG HCO3 29.1 mmol/L (22-26)
[2019-01-11 20:19] LABS: ABG ALLEN TEST POS
--- NOTE | 2019-01-11 20:23 | RAD ---
HISTORY: Cough, congestion Study: Chest x-ray two views Comparison: Previous day Findings: The trachea is midline. Punctate hyperdensities overlie the upper chest which may reflect artifact. Hypoventilatory changes of the changes the lungs. No focal consolidation, pneumothorax, or pleural effusion. The cardiac silhouette is stable. IMPRESSION: Stable exam when accounting for technique. Reported By:
[2019-01-11 20:46] LABS: BASOPHILS % (AUTO) 0.3 % (0.2-1.0); EOSINOPHILS # (AUTO) 0.5 x10^3/uL (0.0-0.2); HEMATOCRIT 32.4 % (36.0-47.0); HEMOGLOBIN 10.6 g/dL (12.0-16.0); LYMPHOCYTES # (AUTO) 1.3 X10^3/uL (1.3-2.9); LYMPHOCYTES % (AUTO) 15.1 % (21.0-51.0); MEAN CORPUSCULAR HEMOGLOBIN 31.9 pg (27.0-34.0); MEAN CORPUSCULAR HGB CONC 32.7 g/dL (33.0-35.0); MEAN CORPUSCULAR VOLUME 97.6 fL (80.0-100.0); MEAN PLATELET VOLUME 8.5 fL (7.4-11.0); MONOCYTES % (AUTO) 11.2 % (0.0-13.0); NEUTROPHILS # (AUTO) 5.8 x10^3/uL (2.2-4.8); NEUTROPHILS % (AUTO) 67.4 % (42.0-75.0); PLATELET COUNT 200 X10^3/uL (150.0-450.0); RED BLOOD COUNT 3.32 X10^6/uL (3.5-5.4); RED CELL DISTRIBUTION WIDTH 13.3 % (11.6-16.5); WHITE BLOOD COUNT 8.7 X10^3/uL (3.6-10.0)
[2019-01-11 20:56] LABS: ALBUMIN 3.1 g/dL (3.4-5.0); CARBON DIOXIDE 29.5 mmol/L (21-32); COR CA(FOR HYPOALB) 9.7 mg/dL (8.5-10.1); CREATININE 1.98 mg/dL (0.55-1.02); TOTAL PROTEIN 6.4 g/dL (6.4-8.2)
[2019-01-11] MEDS ORDERED: NS 1/2 1000 ML IV 1,000 ML IV ONE (21:01)
[2019-01-11 21:12] VITALS: BMI 23.1
[2019-01-11] MEDS: HumuLIN R SUBCUT PRN (21:24)
[2019-01-11] MEDS: DUONEB 0.5 MG/3 MG NEB SCH (21:45)
[2019-01-11] MEDS: PULMICORT NEB TX 0.5 MG NEB SCH (21:45)
[2019-01-11] MEDS: LEVAQUIN PREMIX IV 750 MG 750 MG/150 ML BAG IV SCH (21:45)
[2019-01-11] MEDS: NS 1/2 1000 ML IV 1,000 ML IV SCH (21:46)
[2019-01-11] MEDS: ROBITUSSIN DM PO SCH ×2 (21:46)
[2019-01-12 06:10] LABS: BASOPHILS % (AUTO) 0.6 % (0.2-1.0); EOSINOPHILS # (AUTO) 0.5 x10^3/uL (0.0-0.2); HEMATOCRIT 28.4 % (36.0-47.0); HEMOGLOBIN 9.5 g/dL (12.0-16.0); LYMPHOCYTES # (AUTO) 1.3 X10^3/uL (1.3-2.9); MEAN CORPUSCULAR HEMOGLOBIN 32.4 pg (27.0-34.0); MEAN CORPUSCULAR HGB CONC 33.6 g/dL (33.0-35.0); MEAN CORPUSCULAR VOLUME 96.5 fL (80.0-100.0); MEAN PLATELET VOLUME 8.1 fL (7.4-11.0); MONOCYTES # (AUTO) 0.8 x10^3/uL (0.3-0.8); MONOCYTES % (AUTO) 13.9 % (0.0-13.0); NEUTROPHILS # (AUTO) 3.1 x10^3/uL (2.2-4.8); NEUTROPHILS % (AUTO) 54.5 % (42.0-75.0); PLATELET COUNT 169 X10^3/uL (150.0-450.0); RED BLOOD COUNT 2.95 X10^6/uL (3.5-5.4); RED CELL DISTRIBUTION WIDTH 13.4 % (11.6-16.5); WHITE BLOOD COUNT 5.7 X10^3/uL (3.6-10.0)
--- NOTE | 2019-01-12 06:47 | RAD ---
HISTORY: Productive cough Study: Chest AP portable Comparison: 01/11/2019 Findings: The heart is mildly enlarged. No congestive heart failure is noted. No acute alveolar infiltrates or pleural effusions are identified. The bony thorax is unremarkable. IMPRESSION: Minimal cardiomegaly without congestive heart failure Lungs clear Reported By:
[2019-01-12 06:48] LABS: ALBUMIN 2.4 g/dL (3.4-5.0); CALCIUM 8.6 mg/dL (8.5-10.1); CARBON DIOXIDE 31.7 mmol/L (21-32); COR CA(FOR HYPOALB) 9.9 mg/dL (8.5-10.1); CREATININE 1.59 mg/dL (0.55-1.02); TOTAL PROTEIN 5.4 g/dL (6.4-8.2)
[2019-01-12] MEDS ORDERED: NS 1/2 1000 ML IV 1,000 ML IV ONE ×2 (08:49→23:29)
[2019-01-12] MEDS: LEVAQUIN PREMIX IV 750 MG 750 MG/150 ML BAG IV SCH (09:03)
[2019-01-12] MEDS: ROBITUSSIN DM PO SCH ×4 (09:03→20:27)
[2019-01-12] MEDS: NS 1/2 1000 ML IV 1,000 ML IV SCH ×2 (09:03→23:10)
[2019-01-12] MEDS: PULMICORT NEB TX 0.5 MG NEB SCH ×2 (09:05→20:18)
[2019-01-12] MEDS: DUONEB 0.5 MG/3 MG NEB SCH ×4 (09:05→20:18)
[2019-01-12] MEDS ORDERED: ZOFRAN TAB 4 MG PO PRN (10:24)
[2019-01-12] MEDS ORDERED: AMINO ACIDS PROTEIN HYDROLYS PO SCH (10:30)
[2019-01-12] MEDS ORDERED: UMECLIDINIUM VILANTEROL INH SCH (10:30)
[2019-01-12] MEDS ORDERED: CATAPRES-TTS-3 TD SCH (11:00)
[2019-01-12] MEDS: MIRALAX POWDER (1 DOSE 17 G) PO SCH (12:04)
[2019-01-12] MEDS: PREDNISONE TAB 5 MG PO SCH (12:05)
[2019-01-12] MEDS: PROTONIX TAB 40 MG PO SCH (12:05)
[2019-01-12] MEDS: FLONASE NASAL SPRAY ENOSTRIL SCH (12:06)
[2019-01-12] MEDS: NORVASC TAB 5 MG PO SCH (12:07)
[2019-01-12] MEDS: ARTIFICIAL TEARS DROPS EACHEYE SCH ×2 (12:07→20:27)
[2019-01-12] MEDS: HEMOCYTE-PLUS PO SCH (12:07)
[2019-01-12] MEDS: HumuLIN R SUBCUT PRN ×2 (12:43→16:51)
[2019-01-12] MEDS: APRESOLINE TAB 25 MG PO SCH ×2 (14:34→21:09)
[2019-01-12] MEDS: VSL#3 PO SCH (14:35)
[2019-01-12] MEDS ORDERED: SNACK - Diabetic Appropriate PO SCH (20:00)
[2019-01-12] MEDS: OXYBUTYNIN CHLORIDE ER PO SCH (20:23)
[2019-01-12] MEDS: COLACE CAP 100 MG PO SCH (20:24)
[2019-01-12] MEDS: COREG TAB 25 MG PO SCH (20:24)
[2019-01-12] MEDS: PRAVACHOL PO SCH (20:26)
[2019-01-12] MEDS: ZyrTEC TAB 10 MG PO SCH (20:26)
[2019-01-12] MEDS: ZANTAC PO SCH (20:26)
[2019-01-12] MEDS: COZAAR PO SCH (20:26)
[2019-01-12] MEDS: LANTUS SC SCH (20:35)
[2019-01-12] MEDS: SNACK - Diabetic Appropriate PO SCH (20:37)
[2019-01-12] MEDS: TUSSIONEX PENNKINETIC SUSP PO PRN (20:37)
[2019-01-12] MEDS ORDERED: MILK OF MAGNESIA PO ONE (20:57)
[2019-01-12] MEDS ORDERED: KLONOPIN TAB 0.5 MG PO SCH (21:00)
[2019-01-12] MEDS ORDERED: HIPREX PO SCH (21:00)
[2019-01-12] MEDS ORDERED: PATIENT'S HOME MEDICATION (Budesonide-Formoterol 2 PUFF) INH SCH (21:00)
[2019-01-13] MEDS ORDERED: TYLENOL 325 MG TAB PO ONE (01:30)
[2019-01-13] MEDS: TYLENOL 325 MG TAB PO PRN (01:34)
[2019-01-13 05:26] LABS: BASOPHILS % (AUTO) 0.3 % (0.2-1.0); EOSINOPHILS # (AUTO) 0.3 x10^3/uL (0.0-0.2); EOSINOPHILS % (AUTO) 4.6 % (0.9-2.9); HEMATOCRIT 28.3 % (36.0-47.0); HEMOGLOBIN 9.7 g/dL (12.0-16.0); LYMPHOCYTES # (AUTO) 1.4 X10^3/uL (1.3-2.9); LYMPHOCYTES % (AUTO) 18.1 % (21.0-51.0); MEAN CORPUSCULAR HEMOGLOBIN 32.5 pg (27.0-34.0); MEAN CORPUSCULAR HGB CONC 34.1 g/dL (33.0-35.0); MEAN CORPUSCULAR VOLUME 95.3 fL (80.0-100.0); MEAN PLATELET VOLUME 8.1 fL (7.4-11.0); MONOCYTES # (AUTO) 0.7 x10^3/uL (0.3-0.8); MONOCYTES % (AUTO) 8.8 % (0.0-13.0); NEUTROPHILS # (AUTO) 5.1 x10^3/uL (2.2-4.8); NEUTROPHILS % (AUTO) 68.2 % (42.0-75.0); PLATELET COUNT 183 X10^3/uL (150.0-450.0); RED BLOOD COUNT 2.97 X10^6/uL (3.5-5.4); WHITE BLOOD COUNT 7.5 X10^3/uL (3.6-10.0)
[2019-01-13 05:33] LABS: ALBUMIN 2.4 g/dL (3.4-5.0); CALCIUM 8.7 mg/dL (8.5-10.1); CARBON DIOXIDE 31.1 mmol/L (21-32); CREATININE 1.31 mg/dL (0.55-1.02); TOTAL PROTEIN 5.4 g/dL (6.4-8.2)
[2019-01-13] MEDS: APRESOLINE TAB 25 MG PO SCH ×3 (05:46→21:13)
--- NOTE | 2019-01-13 07:08 | RAD ---
HISTORY: Productive cough, congestion Study: Chest AP portable Comparison: 01/12/2019 Findings: The heart is enlarged. No congestive heart failure is noted. No acute alveolar infiltrates or pleural effusions are identified. There is minimal subsegmental atelectasis in the right lung base. The bony thorax is unremarkable with the exception of chronic rotator cuff disease on the right. IMPRESSION: Continued mild cardiomegaly without congestive heart failure No infiltrates Reported By:
[2019-01-13] MEDS ORDERED: NS 1/2 1000 ML IV 1,000 ML IV ONE (09:08)
[2019-01-13] MEDS: FLONASE NASAL SPRAY ENOSTRIL SCH (09:25)
[2019-01-13] MEDS: ARTIFICIAL TEARS DROPS EACHEYE SCH ×2 (09:25→21:13)
[2019-01-13] MEDS: NS 1/2 1000 ML IV 1,000 ML IV SCH ×2 (09:26→14:08)
[2019-01-13] MEDS: LEVAQUIN PREMIX IV 750 MG 750 MG/150 ML BAG IV SCH (09:26)
[2019-01-13] MEDS: VSL#3 PO SCH (09:27)
[2019-01-13] MEDS: PREDNISONE TAB 5 MG PO SCH (09:27)
[2019-01-13] MEDS: NORVASC TAB 5 MG PO SCH (09:27)
[2019-01-13] MEDS: ROBITUSSIN DM PO SCH ×4 (09:27→21:15)
[2019-01-13] MEDS: PROTONIX TAB 40 MG PO SCH (09:27)
[2019-01-13] MEDS: COREG TAB 25 MG PO SCH ×2 (09:27→21:15)
[2019-01-13] MEDS: ZANTAC PO SCH ×2 (09:28→21:15)
[2019-01-13] MEDS: COLACE CAP 100 MG PO SCH ×2 (09:28→21:15)
[2019-01-13] MEDS: COZAAR PO SCH ×2 (09:28→21:13)
[2019-01-13] MEDS: HEMOCYTE-PLUS PO SCH (09:28)
[2019-01-13] MEDS: PULMICORT NEB TX 0.5 MG NEB SCH ×2 (09:29→21:04)
[2019-01-13] MEDS: DUONEB 0.5 MG/3 MG NEB SCH ×4 (09:29→21:04)
[2019-01-13] MEDS: MIRALAX POWDER (1 DOSE 17 G) PO SCH (09:33)
[2019-01-13] MEDS: HumuLIN R SUBCUT PRN (11:37)
[2019-01-13] MEDS: TUSSIONEX PENNKINETIC SUSP PO PRN (14:10)
[2019-01-13] MEDS: SNACK - Diabetic Appropriate PO SCH (21:00)
[2019-01-13] MEDS: LANTUS SC SCH (21:14)
[2019-01-13] MEDS: ZyrTEC TAB 10 MG PO SCH (21:15)
[2019-01-13] MEDS: KLONOPIN TAB 0.5 MG PO SCH (21:15)
[2019-01-13] MEDS: PRAVACHOL PO SCH (21:16)
[2019-01-13] MEDS: OXYBUTYNIN CHLORIDE ER PO SCH (21:16)
[2019-01-14] MEDS ORDERED: NS 1/2 1000 ML IV 1,000 ML IV ONE ×2 (01:09→14:31)
[2019-01-14] MEDS: NS 1/2 1000 ML IV 1,000 ML IV SCH ×4 (01:32→18:18)
[2019-01-14] MEDS: TUSSIONEX PENNKINETIC SUSP PO PRN ×2 (03:23→15:49)
[2019-01-14] MEDS: TYLENOL 325 MG TAB PO PRN (03:45)
[2019-01-14 04:58] LABS: BASOPHILS # (AUTO) 0.1 X10^3/uL (0.0-0.1); BASOPHILS % (AUTO) 0.7 % (0.2-1.0); EOSINOPHILS # (AUTO) 0.4 x10^3/uL (0.0-0.2); HEMATOCRIT 28.6 % (36.0-47.0); HEMOGLOBIN 9.8 g/dL (12.0-16.0); LYMPHOCYTES # (AUTO) 1.2 X10^3/uL (1.3-2.9); LYMPHOCYTES % (AUTO) 14.8 % (21.0-51.0); MEAN CORPUSCULAR HEMOGLOBIN 32.4 pg (27.0-34.0); MEAN CORPUSCULAR HGB CONC 34.3 g/dL (33.0-35.0); MEAN CORPUSCULAR VOLUME 94.2 fL (80.0-100.0); MEAN PLATELET VOLUME 8.1 fL (7.4-11.0); MONOCYTES # (AUTO) 0.4 x10^3/uL (0.3-0.8); MONOCYTES % (AUTO) 5.3 % (0.0-13.0); NEUTROPHILS # (AUTO) 6.2 x10^3/uL (2.2-4.8); NEUTROPHILS % (AUTO) 74.2 % (42.0-75.0); PLATELET COUNT 184 X10^3/uL (150.0-450.0); RED BLOOD COUNT 3.03 X10^6/uL (3.5-5.4); RED CELL DISTRIBUTION WIDTH 13.3 % (11.6-16.5); WHITE BLOOD COUNT 8.4 X10^3/uL (3.6-10.0)
[2019-01-14] MEDS: APRESOLINE TAB 25 MG PO SCH ×3 (05:06→21:54)
[2019-01-14 05:10] LABS: ALBUMIN 2.3 g/dL (3.4-5.0); CALCIUM 8.7 mg/dL (8.5-10.1); COR CA(FOR HYPOALB) 10.1 mg/dL (8.5-10.1); CREATININE 1.32 mg/dL (0.55-1.02); TOTAL PROTEIN 5.3 g/dL (6.4-8.2)
[2019-01-14] MEDS: HumuLIN R SUBCUT PRN ×3 (05:56→20:45)
--- NOTE | 2019-01-14 05:59 | RAD ---
Examination: AP chest History: SOB Comparison 01/13/2019 Findings: Stable cardiomegaly and mild atelectasis right lung base. No developing pneumonia, pulmonary edema or pneumothorax. Pleural deformity at the left costophrenic angle consistent with chronic pleural thickening or small left pleural effusion. Impression: No interval change since 01/13/2019. Reported By:
[2019-01-14] MEDS: DUONEB 0.5 MG/3 MG NEB SCH ×4 (09:03→21:01)
[2019-01-14] MEDS: PULMICORT NEB TX 0.5 MG NEB SCH ×2 (09:03→21:01)
[2019-01-14] MEDS: ROBITUSSIN DM PO SCH ×4 (09:16→20:43)
[2019-01-14] MEDS: COLACE CAP 100 MG PO SCH ×2 (09:16→20:44)
[2019-01-14] MEDS: LEVAQUIN PREMIX IV 750 MG 750 MG/150 ML BAG IV SCH (09:16)
[2019-01-14] MEDS: COREG TAB 25 MG PO SCH ×2 (09:16→20:46)
[2019-01-14] MEDS: PREDNISONE TAB 5 MG PO SCH (09:16)
[2019-01-14] MEDS: ZANTAC PO SCH ×2 (09:16→20:44)
[2019-01-14] MEDS: VSL#3 PO SCH (09:16)
[2019-01-14] MEDS: PROTONIX TAB 40 MG PO SCH (09:16)
[2019-01-14] MEDS: HEMOCYTE-PLUS PO SCH (09:16)
[2019-01-14] MEDS: COZAAR PO SCH ×2 (09:17→20:46)
[2019-01-14] MEDS: MIRALAX POWDER (1 DOSE 17 G) PO SCH (09:18)
[2019-01-14] MEDS: ARTIFICIAL TEARS DROPS EACHEYE SCH ×2 (09:19→20:43)
[2019-01-14] MEDS: FLONASE NASAL SPRAY ENOSTRIL SCH (09:19)
[2019-01-14] MEDS: NORVASC TAB 5 MG PO SCH (11:58)
[2019-01-14] MEDS: SNACK - Diabetic Appropriate PO SCH (20:43)
[2019-01-14] MEDS: KLONOPIN TAB 0.5 MG PO SCH (20:44)
[2019-01-14] MEDS: ZyrTEC TAB 10 MG PO SCH (20:44)
[2019-01-14] MEDS: LANTUS SC SCH (20:44)
[2019-01-14] MEDS: OXYBUTYNIN CHLORIDE ER PO SCH (20:44)
[2019-01-14] MEDS: PRAVACHOL PO SCH (20:44)
--- NOTE | 2019-01-14 22:16 | DR.H&P ---
H&P - History & Physical for Day of: H&P Date: 01/11/19 - Chief Complaint Chief Complaint: COUGH, SOB, WEAKNESS - History of Present Illness History of Present Illness: IS A 88 YEAR OLD PATIENT OF OURS. SHE IS A RESIDENT OF [facility]. SHE WAS A DIRECT ADMISSION FOR BRONCHOPNEUMONIA. SHE REPORTED PRODUCTIVE COUGH, SHORNTESS OF BREATH, AND WEAKNESS, DESPITE RESPIRATORY TREATMENTS AND SUPPLEMENTAL OXYGEN AT THE RESIDENTIAL. ON ARRIVAL, VITALS WERE 98.3-80-18-97%-116/72. LABS WERE OBTAINED. ABNORMAL LAB VALUES INCLUDE THE FOLLOWING: RBC 3.32, HGB 10.6, HCT 32.4, SODIUM 134, BUN 40, CREATININE 1.98, GLUCOSOE 421, AST 51, ALT 137, ALBUMIN 3.1. ABG OBTAINED AND REVEALED: PH 7.340, PC02 54.0, P02 71.0, HC03 29.1, BASE EXCESS 2.3. BLOOD AND SUPUTUM CULTURES OBTAINED AND ARE PENDING. A CHEST XRAY WAS OBTAINED AND REVEALED: The trachea is midline. Punctate hyperdensities overlie the upper chest which may reflect artifact. Hypoventilatory changes of the changes the lungs. No focal consolidation, pneumothorax, or pleural effusion. The cardiac silhouette is stable. SHE WAS STARTED ON LEVAQUIN 750MG IV DAILY, RESPIRATORY TREATMENTS, AND SUPPLEMENTAL OXYGEN. WE PLAN TO FOLLOW UP WITH AM LABS AND CONTINUE TO MONITOR. - Past Medical History Past Medical History: [place], Coronary Artery Disease, Hypertension, Diabetes, Renal Disease, Depression, Anemia, CVA, PUD, Arthritis, Gout, CHF Additional Medical History: Legally Blind, Tremors, Bronchitis, Constipation, Frequent UTI's, Gout, Breast Cancer, Fracture of Wrist, Fracture of Right Femur, TIAs, back pain, DDD - Past Surgical History Surgical History: Cholecystectomy, Ortho Surgery Additional Surgical History: back surgery, left lumpectomy - Family History Family Medical History: Cancer, [place] - Social History Does patient currently use any type of tobacco product: No Have you used tobacco products in the last 12 months: No Does any household member use tobacco: No Alcohol Use: None Drug Use: None - Medications Home Medications: Penicillins Allergy (Verified 04/04/18 19:58) zolpidem Allergy (Verified 04/04/18 19:58) diazepam Adverse Reaction (Verified 04/04/18 19:58) CONFUSION CONTINUE taking the following medications ciprofloxacin HCl [Cipro] 500 mg PO BID 01/11/19 [History] clonazepam [Klonopin] 0.25 mg PO HS 01/11/19 [History] hydrocodone-chlorpheniramine [Tussionex Pennkinetic ER] 1 tsp PO Q12H PRN 01/11/19 [History] - Review of Systems Constitutional: Fever, Weakness Eyes: No Symptoms Reported ENT: No Symptoms Reported Respiratory: Cough, Shortness of Breath, SOB with Excertion, Wheezing Cardiovascular: No Symptoms Reported Gastrointestinal: No Symptoms Reported Genitourinary: No Symptoms Reported Musculoskeletal: No Symptoms Reported Skin: No Symptoms Reported Neurological: Weakness - Physical Exam Vital Signs: Temperature 99.1 F Pulse Rate [Right Brachial] 79 Pulse Rate [Left Brachial] 64 Pulse Rate [Left Radial] 65 Pulse Rate 72 Respiratory Rate 22 Blood Pressure [Right Arm] 96/50 Blood Pressure [Left Femoral 129/56 Artery] Blood Pressure [Left Arm] 109/46 Blood Pressure 137/59 O2 Sat by Pulse Oximetry 94 Oriented: Normal Eyes: Normal Ear: Normal Nose: Normal Throat: Tonsillar Hypertrophy Respiratory: Wheezes Throughout Cardiovascular: Normal. negative: S3, S4, Murmur, Edema : Normal Auscultation: Bowel Sounds: Normal Palpation: Normal Tenderness: Normal Skin: Normal Musculoskeletal: Normal Psychiatric: Normal Mood Description: Calm Affect: Normal Speech Pattern: Clear - Assessment/Plan (1) Bronchopneumonia Status: Acute Plan: LEVAQUIN 750MG IV DAILY, RESPIRATORY TREATMENTS, SUPPLEMENTAL OXYGEN, CONTINUE TO MONITOR - Allergies Allergies/Adverse Reactions: Allergies Allergy/AdvReac Type Severity Reaction Status Date / Time Penicillins Allergy Verified 04/04/18 19:58 zolpidem Allergy Verified 04/04/18 19:58 diazepam AdvReac CONFUSION Verified 04/04/18 19:58
--- NOTE | 2019-01-14 22:24 | PCM.PROG ---
Progress Note - Progress Note for Day of Date of Exam: 01/12/19 - Subjective Subjective: WAS ADMITTED FOR ACUTE BRONCHOPNEUMONIA. TODAY, SHE IS ALERT AND ORIENTED, LYING IN BED ON MORNING ROUNDS. SHE CONTINUES WITH COMPLAINTS OF SOB AND PRODUCTIVE COUGH. BILATERAL LUNGS ARE NOTED WITH SCATTERED WHEEZING THROUGHOUT. HER VITALS THIS MORNING ARE 98.0-69-18-98%-119/57. LABS WERE OBTAINED. ABNORMAL LAB VALUES INCLUDE THE FOLLOWING: RBC 2.95, HGB 9.5, HCT 28.4, BUN 37, CREATININE 1.59, GLUCOSE 176, ALT 109, TOTAL PROTEIN 5.4, ALBUMIN 2.4. BLOOD AND SPUTUM CULTURE PENDING. CHEST XRAY OBTAINED AND REVEALED: Minimal cardiomegaly without congestive heart failure. Lungs clear. SHE IS CURRENTLY RECEIVING IV ANTIBIOTICS, RESPIRATORY TX, AND SUPPLEMENTAL OXYGEN. WE WILL ADD P ULMICORT TO NEB TX AND PROBIOTICS. OTHERWISE, WE WILL FOLLOW UP WITH AM LABS AND CONTINUE TO MONITOR. - Past Medical Family Social History Past Med/Fam/Surg Hx: No changes since H&P Allergies: Allergies Penicillins Allergy (Verified 04/04/18 19:58) zolpidem Allergy (Verified 04/04/18 19:58) diazepam Adverse Reaction (Verified 04/04/18 19:58) CONFUSION - Review of Systems ROS: No change since H&P - Vital Signs and I&O's Vital Signs: Temperature 99.1 F Pulse Rate [Right Brachial] 79 Pulse Rate [Left Brachial] 64 Pulse Rate [Left Radial] 65 Pulse Rate 72 Respiratory Rate 22 Blood Pressure [Right Arm] 96/50 Blood Pressure [Left Femoral 129/56 Artery] Blood Pressure [Left Arm] 109/46 Blood Pressure 137/59 O2 Sat by Pulse Oximetry 94 Intake and Output: Intake & Output 01/12/19 01/13/19 01/14/19 01/15/19 11:59 11:59 11:59 11:59 Intake Total 1059 / 1059 2099 / 2100 1689 / 1689 1362 / 1362 Balance 1059 / 1059 2099 / 1689 1362 / 1362 - Physical Exam Oriented: Normal Eyes: Normal Ear: Normal Nose: Normal Throat: Tonsillar Hypertrophy Respiratory: Generalized, Wheezes Cardiovascular: Normal. negative: S3, S4, Murmur, Edema : Normal Auscultation: Bowel Sounds: Normal Tenderness: Normal Skin: Normal Musculoskeletal: Normal Psychiatric: Normal Mood Description: Calm Affect: Normal Speech Pattern: Clear - Laboratory and Diagnostics Result Diagrams: 01/14/19 04:05 01/14/19 04:05 Labs: 01/11/19 20:12 Blood Blood Culture - Preliminary 01/11/19 20:33 Blood Blood Culture - Preliminary 01/11/19 19:32 Sputum - Expectorated Sputum Sputum Culture - Preliminary 01/11/19 19:32 Sputum - Expectorated Sputum - Final Laboratory WBC 8.4 X10^3/uL (3.6-10.0) 01/14/19 04:05 RBC 3.03 X10^6/uL (3.5-5.4) L 01/14/19 04:05 Hgb 9.8 g/dL (12.0-16.0) L 01/14/19 04:05 Hct 28.6 % (36.0-47.0) L 01/14/19 04:05 MCV 94.2 fL (80.0-100.0) 01/14/19 04:05 MCH 32.4 pg (27.0-34.0) 01/14/19 04:05 MCHC 34.3 g/dL (33.0-35.0) 01/14/19 04:05 RDW 13.3 % (11.6-16.5) 01/14/19 04:05 Plt Count 184 X10^3/uL (150.0-450.0) 01/14/19 04:05 MPV 8.1 fL (7.4-11.0) 01/14/19 04:05 Neut % (Auto) 74.2 % (42.0-75.0) 01/14/19 04:05 Lymph % (Auto) 14.8 % (21.0-51.0) L 01/14/19 04:05 Miner % (Auto) 5.3 % (0.0-13.0) 01/14/19 04:05 Eos % (Auto) 5.0 % (0.9-2.9) H 01/14/19 04:05 Baso % (Auto) 0.7 % (0.2-1.0) 01/14/19 04:05 Neut # (Auto) 6.2 x10^3/uL (2.2-4.8) H 01/14/19 04:05 Lymph # (Auto) 1.2 X10^3/uL (1.3-2.9) L 01/14/19 04:05 Miner # (Auto) 0.4 x10^3/uL (0.3-0.8) 01/14/19 04:05 Eos # (Auto) 0.4 x10^3/uL (0.0-0.2) H 01/14/19 04:05 Baso # (Auto) 0.1 X10^3/uL (0.0-0.1) 01/14/19 04:05 Absolute Nucleated RBC 0.0 /100WBC 01/14/19 04:05 Sample Site Lr 01/11/19 20:12 ABG pH 7.340 (7.35-7.45) L 01/11/19 20:12 ABG pCO2 54.0 mmHg (35.0-45.0) H* 01/11/19 20:12 ABG pO2 71.0 mmHg (80.0-100.0) L 01/11/19 20:12 ABG HCO3 29.1 mmol/L (22-26) H 01/11/19 20:12 ABG O2 Saturation 93.0 % (90-100) 01/11/19 20:12 ABG Base Excess 2.3 mmol/L (-2.0-2.0) H 01/11/19 20:12 Dung Test Pos 01/11/19 20:12 A-a Gradient 11.0 mmHg 01/11/19 20:12 FiO2 21.0 01/11/19 20:12 Blood Gas Comments Poly well cb 01/11/19 20:12 Sodium 137 mmol/L (136-145) 01/14/19 04:05 Corrected Sodium 140 mmol/L (136-145) 01/14/19 04:05 Potassium 4.2 mmol/L (3.5-5.1) 01/14/19 04:05 Chloride 104 mmol/L (98-107) 01/14/19 04:05 Carbon Dioxide 29.0 mmol/L (21-32) 01/14/19 04:05 BUN 22 mg/dL (7-18) H 01/14/19 04:05 Creatinine 1.32 mg/dL (0.55-1.02) H 01/14/19 04:05 Est GFR (MDRD) Af Amer 49 (>60) L 01/14/19 04:05 Est GFR (MDRD) Non-Af 40 (>60) L 01/14/19 04:05 Glucose 214 mg/dL (65-99) H 01/14/19 04:05 POC Glucose (mg/dL) 199 mg/dL (65-99) H 01/14/19 20:28 Calcium 8.7 mg/dL (8.5-10.1) 01/14/19 04:05 Corrected Calcium 10.1 mg/dL (8.5-10.1) 01/14/19 04:05 Total Bilirubin 0.20 mg/dL (0.2-1.0) 01/14/19 04:05 AST 20 Units/L (15-37) 01/14/19 04:05 ALT 68 Units/L (12-78) 01/14/19 04:05 Alkaline Phosphatase 78 Units/L (46-116) 01/14/19 04:05 Total Protein 5.3 g/dL (6.4-8.2) L 01/14/19 04:05 Albumin 2.3 g/dL (3.4-5.0) L 01/14/19 04:05 Globulin 3.0 g/dL (2.5-4.5) 01/14/19 04:05 Albumin/Globulin Ratio 0.8 Ratio (1.1-2.1) L 01/14/19 04:05 - Plan (1) Bronchopneumonia Status: Acute Plan: LEVAQUIN 750MG IV DAILY, RESPIRATORY TREATMENTS, SUPPLEMENTAL OXYGEN, CONTINUE TO MONITOR
[2019-01-15] MEDS ORDERED: NS 1/2 1000 ML IV 1,000 ML IV ONE ×2 (04:13→20:07)
[2019-01-15] MEDS: NS 1/2 1000 ML IV 1,000 ML IV SCH ×3 (04:34→20:38)
[2019-01-15 05:08] LABS: BASOPHILS % (AUTO) 0.2 % (0.2-1.0); EOSINOPHILS # (AUTO) 0.2 x10^3/uL (0.0-0.2); EOSINOPHILS % (AUTO) 2.4 % (0.9-2.9); HEMATOCRIT 31.3 % (36.0-47.0); HEMOGLOBIN 10.5 g/dL (12.0-16.0); LYMPHOCYTES # (AUTO) 1.6 X10^3/uL (1.3-2.9); LYMPHOCYTES % (AUTO) 16.5 % (21.0-51.0); MEAN CORPUSCULAR HGB CONC 33.5 g/dL (33.0-35.0); MEAN CORPUSCULAR VOLUME 95.6 fL (80.0-100.0); MEAN PLATELET VOLUME 7.8 fL (7.4-11.0); MONOCYTES # (AUTO) 0.6 x10^3/uL (0.3-0.8); MONOCYTES % (AUTO) 6.1 % (0.0-13.0); NEUTROPHILS # (AUTO) 7.4 x10^3/uL (2.2-4.8); NEUTROPHILS % (AUTO) 74.8 % (42.0-75.0); PLATELET COUNT 215 X10^3/uL (150.0-450.0); RED BLOOD COUNT 3.28 X10^6/uL (3.5-5.4); RED CELL DISTRIBUTION WIDTH 13.2 % (11.6-16.5); WHITE BLOOD COUNT 9.9 X10^3/uL (3.6-10.0)
[2019-01-15 05:14] LABS: ALANINE AMINOTRANSFERASE 64 Units/L (12-78); ALBUMIN 2.5 g/dL (3.4-5.0); ALKALINE PHOSPHATASE 81 Units/L (46-116); ASPARTATE AMINO TRANSFERASE 23 Units/L (15-37); BLOOD UREA NITROGEN 17 mg/dL (7-18); CALCIUM 9.1 mg/dL (8.5-10.1); CHLORIDE 104 mmol/L (98-107); COR CA(FOR HYPOALB) 10.3 mg/dL (8.5-10.1); CREATININE 1.35 mg/dL (0.55-1.02); SODIUM 139 mmol/L (136-145); TOTAL PROTEIN 5.8 g/dL (6.4-8.2); eGFR NON BLACK RACES 39 (>60)
[2019-01-15] MEDS: APRESOLINE TAB 25 MG PO SCH ×3 (05:51→21:03)
[2019-01-15] MEDS: ROBITUSSIN DM PO SCH ×4 (08:33→20:38)
[2019-01-15] MEDS: MIRALAX POWDER (1 DOSE 17 G) PO SCH (08:33)
[2019-01-15] MEDS: VSL#3 PO SCH (08:33)
[2019-01-15] MEDS: LEVAQUIN PREMIX IV 750 MG 750 MG/150 ML BAG IV SCH (08:33)
[2019-01-15] MEDS: NORVASC TAB 5 MG PO SCH (08:33)
[2019-01-15] MEDS: PREDNISONE TAB 5 MG PO SCH (08:33)
[2019-01-15] MEDS: PROTONIX TAB 40 MG PO SCH (08:33)
[2019-01-15] MEDS: ZANTAC PO SCH ×2 (08:34→20:39)
[2019-01-15] MEDS: HEMOCYTE-PLUS PO SCH (08:34)
[2019-01-15] MEDS: COZAAR PO SCH ×2 (08:34→20:39)
[2019-01-15] MEDS: COLACE CAP 100 MG PO SCH ×2 (08:34→20:39)
[2019-01-15] MEDS: COREG TAB 25 MG PO SCH ×2 (08:34→20:39)
[2019-01-15] MEDS: PULMICORT NEB TX 0.5 MG NEB SCH ×2 (08:37→20:15)
[2019-01-15] MEDS: DUONEB 0.5 MG/3 MG NEB SCH ×5 (08:37→20:15)
[2019-01-15] MEDS: TUSSIONEX PENNKINETIC SUSP PO PRN (08:48)
[2019-01-15] MEDS: ARTIFICIAL TEARS DROPS EACHEYE SCH ×2 (08:50→20:40)
[2019-01-15] MEDS: FLONASE NASAL SPRAY ENOSTRIL SCH (08:50)
--- NOTE | 2019-01-15 09:08 | RAD ---
Examination: Portable AP chest History: Pneumonia, breast cancer Comparison 01/14/2019 Findings: Stable cardiomegaly with minimal atelectasis right base. Increasing airspace disease retrocardiac left lower lobe. The diaphragm is now obscured by this process. Small left pleural effusion again noted. The left upper lung is clear. Impression: Increasing left lower lobe density consistent with pneumonia/atelectasis. Stable findings otherwise. Reported By:
[2019-01-15] MEDS: TESSALON PERLES PO PRN (13:39)
[2019-01-15] MEDS ORDERED: TESSALON PERLES PO ONE (13:41)
[2019-01-15] MEDS: MUCOMYST 20% 200 MG/ML NEB SCH ×2 (15:58→20:15)
--- NOTE | 2019-01-15 20:36 | PCM.PROG ---
Progress Note - Progress Note for Day of Date of Exam: 01/13/19 - Subjective Subjective: WAS ADMITTED FOR ACUTE BRONCHOPNEUMONIA. TODAY, SHE IS ALERT AND ORIENTED, LYING IN BED ON MORNING ROUNDS. SHE CONTINUES WITH COMPLAINTS OF SOB AND PRODUCTIVE COUGH. SHE ALSO REPORTS BEING UNABLE TO SLEEP AT NIGHT. BILATERAL LUNGS ARE NOTED WITH SCATTERED WHEEZING THROUGHOUT. HER TALS THIS MORNING ARE 98.0-58-18-98%-104/57. LABS WERE OBTAINED. ABNORMAL LAB VALUES INCLUDE THE FOLLOWING: RBC 2.97, HGB 9.7, HCT 28.3, BUN 24, CREATININE 1.31, GLUCOSE 126, ALT 88, TOTAL PROTEIN 5.4, ALBUMIN 2.4. BLOOD AND SPUTUM CULTURE PENDING. PRELIMINARY SPUTUM CULTURE REPORTS POSSIBLE GROWTH OF HAEMOPHILUS. CHEST XRAY OBTAINED AND REVEALED: Continued mild cardiomegaly without congestive heart failure. SHE IS CURRENTLY RECEIVING IV ANTIBIOTICS, RESPIRATORY TX, AND SUPPLEMENTAL OXYGEN. TODAY, WE WILL START THE SMARTVEST AND KLONOPIN 0.5MG PO HS. OTHERWISE, WE WILL FOLLOW UP WITH AM LABS AND CONTINUE TO MONITOR. - Past Medical Family Social History Past Med/Fam/Surg Hx: No changes since H&P Allergies: Allergies Penicillins Allergy (Verified 04/04/18 19:58) zolpidem Allergy (Verified 04/04/18 19:58) diazepam Adverse Reaction (Verified 04/04/18 19:58) CONFUSION - Review of Systems ROS: No change since H&P - Vital Signs and I&O's Vital Signs: Temperature 99.7 F Pulse Rate [Right Brachial] 81 Pulse Rate [Left Brachial] 64 Pulse Rate [Left Radial] 65 Pulse Rate 88 Respiratory Rate 22 Blood Pressure [Right Arm] 99/54 Blood Pressure [Left Femoral 129/56 Artery] Blood Pressure [Left Arm] 109/46 Blood Pressure 137/59 O2 Sat by Pulse Oximetry 98 Intake and Output: Intake & Output 01/13/19 01/14/19 01/15/19 01/16/19 11:59 11:59 11:59 11:59 Intake Total 2099 1689 / 1689 2730 / 2730 360 / 360 Balance 2099 1689 / 1689 2730 / 2730 360 / 360 - Physical Exam Oriented: Normal Eyes: Normal Ear: Normal Nose: Normal Throat: Tonsillar Hypertrophy Respiratory: Generalized, Wheezes Cardiovascular: Normal. negative: S3, S4, Murmur, Edema : Normal Auscultation: Bowel Sounds: Normal Tenderness: Normal Skin: Normal Musculoskeletal: Normal Psychiatric: Normal Mood Description: Calm Affect: Normal Speech Pattern: Clear, Appropriate - Laboratory and Diagnostics Result Diagrams: 01/15/19 04:20 01/15/19 05:52 Labs: 01/11/19 20:12 Blood Blood Culture - Preliminary 01/11/19 20:33 Blood Blood Culture - Preliminary 01/11/19 19:32 Sputum - Expectorated Sputum Sputum Culture - Preliminary 01/11/19 19:32 Sputum - Expectorated Sputum - Final Laboratory WBC 9.9 X10^3/uL (3.6-10.0) 01/15/19 04:20 RBC 3.28 X10^6/uL (3.5-5.4) L 01/15/19 04:20 Hgb 10.5 g/dL (12.0-16.0) L 01/15/19 04:20 Hct 31.3 % (36.0-47.0) L 01/15/19 04:20 MCV 95.6 fL (80.0-100.0) 01/15/19 04:20 MCH 32.0 pg (27.0-34.0) 01/15/19 04:20 MCHC 33.5 g/dL (33.0-35.0) 01/15/19 04:20 RDW 13.2 % (11.6-16.5) 01/15/19 04:20 Plt Count 215 X10^3/uL (150.0-450.0) 01/15/19 04:20 MPV 7.8 fL (7.4-11.0) 01/15/19 04:20 Neut % (Auto) 74.8 % (42.0-75.0) 01/15/19 04:20 Lymph % (Auto) 16.5 % (21.0-51.0) L 01/15/19 04:20 [place]alier % (Auto) 6.1 % (0.0-13.0) 01/15/19 04:20 Eos % (Auto) 2.4 % (0.9-2.9) 01/15/19 04:20 Baso % (Auto) 0.2 % (0.2-1.0) 01/15/19 04:20 Neut # (Auto) 7.4 x10^3/uL (2.2-4.8) H 01/15/19 04:20 Lymph # (Auto) 1.6 X10^3/uL (1.3-2.9) 01/15/19 04:20 Cavalier # (Auto) 0.6 x10^3/uL (0.3-0.8) 01/15/19 04:20 Eos # (Auto) 0.2 x10^3/uL (0.0-0.2) 01/15/19 04:20 Baso # (Auto) 0.0 X10^3/uL (0.0-0.1) 01/15/19 04:20 Absolute Nucleated RBC 0.0 /100WBC 01/15/19 04:20 Sample Site Lr 01/11/19 20:12 ABG pH 7.340 (7.35-7.45) L 01/11/19 20:12 ABG pCO2 54.0 mmHg (35.0-45.0) H* 01/11/19 20:12 ABG pO2 71.0 mmHg (80.0-100.0) L 01/11/19 20:12 ABG HCO3 29.1 mmol/L (22-26) H 01/11/19 20:12 ABG O2 Saturation 93.0 % (90-100) 01/11/19 20:12 ABG Base Excess 2.3 mmol/L (-2.0-2.0) H 01/11/19 20:12 Dung Test Pos 01/11/19 20:12 A-a Gradient 11.0 mmHg 01/11/19 20:12 FiO2 21.0 01/11/19 20:12 Blood Gas Comments Poly well cb 01/11/19 20:12 Sodium 139 mmol/L (136-145) 01/15/19 04:20 Corrected Sodium TNP 01/15/19 04:20 Potassium 4.1 mmol/L (3.5-5.1) 01/15/19 04:20 Chloride 104 mmol/L (98-107) 01/15/19 04:20 Carbon Dioxide 30.0 mmol/L (21-32) 01/15/19 04:20 BUN 17 mg/dL (7-18) 01/15/19 04:20 Creatinine 1.35 mg/dL (0.55-1.02) H 01/15/19 04:20 Est GFR (MDRD) Af Amer 48 (>60) L 01/15/19 04:20 Est GFR (MDRD) Non-Af 39 (>60) L 01/15/19 04:20 Glucose 83 mg/dL (65-99) 01/15/19 05:52 POC Glucose (mg/dL) 206 mg/dL (65-99) H 01/15/19 19:54 Calcium 9.1 mg/dL (8.5-10.1) 01/15/19 04:20 Corrected Calcium 10.3 mg/dL (8.5-10.1) H 01/15/19 04:20 Total Bilirubin 0.30 mg/dL (0.2-1.0) 01/15/19 04:20 AST 23 Units/L (15-37) 01/15/19 04:20 ALT 64 Units/L (12-78) 01/15/19 04:20 Alkaline Phosphatase 81 Units/L (46-116) 01/15/19 04:20 Total Protein 5.8 g/dL (6.4-8.2) L 01/15/19 04:20 Albumin 2.5 g/dL (3.4-5.0) L 01/15/19 04:20 Globulin 3.3 g/dL (2.5-4.5) 01/15/19 04:20 Albumin/Globulin Ratio 0.8 Ratio (1.1-2.1) L 01/15/19 04:20 - Plan (1) Bronchopneumonia Status: Acute Plan: LEVAQUIN 750MG IV DAILY, RESPIRATORY TREATMENTS, SUPPLEMENTAL OXYGEN, CONTINUE TO MONITOR
[2019-01-15] MEDS: OXYBUTYNIN CHLORIDE ER PO SCH (20:39)
[2019-01-15] MEDS: TYLENOL 325 MG TAB PO PRN (20:39)
[2019-01-15] MEDS: PRAVACHOL PO SCH (20:39)
[2019-01-15] MEDS: KLONOPIN TAB 0.5 MG PO SCH (20:39)
[2019-01-15] MEDS: ZyrTEC TAB 10 MG PO SCH (20:39)
[2019-01-15] MEDS: SNACK - Diabetic Appropriate PO SCH (20:40)
[2019-01-15] MEDS ORDERED: LANTUS SC SCH (21:00)
[2019-01-16] MEDS: APRESOLINE TAB 25 MG PO SCH ×3 (05:11→21:28)
[2019-01-16 05:19] LABS: BASOPHILS % (AUTO) 0.2 % (0.2-1.0); EOSINOPHILS # (AUTO) 0.3 x10^3/uL (0.0-0.2); EOSINOPHILS % (AUTO) 3.4 % (0.9-2.9); HEMATOCRIT 25.6 % (36.0-47.0); HEMOGLOBIN 8.8 g/dL (12.0-16.0); LYMPHOCYTES # (AUTO) 1.1 X10^3/uL (1.3-2.9); LYMPHOCYTES % (AUTO) 11.9 % (21.0-51.0); MEAN CORPUSCULAR HEMOGLOBIN 32.7 pg (27.0-34.0); MEAN CORPUSCULAR HGB CONC 34.5 g/dL (33.0-35.0); MEAN CORPUSCULAR VOLUME 94.9 fL (80.0-100.0); MONOCYTES # (AUTO) 0.6 x10^3/uL (0.3-0.8); MONOCYTES % (AUTO) 6.8 % (0.0-13.0); NEUTROPHILS % (AUTO) 77.7 % (42.0-75.0); PLATELET COUNT 176 X10^3/uL (150.0-450.0); RED CELL DISTRIBUTION WIDTH 12.9 % (11.6-16.5)
[2019-01-16 05:27] LABS: ALBUMIN 2.1 g/dL (3.4-5.0); CALCIUM 8.7 mg/dL (8.5-10.1); CARBON DIOXIDE 30.8 mmol/L (21-32); COR CA(FOR HYPOALB) 10.2 mg/dL (8.5-10.1); CREATININE 1.44 mg/dL (0.55-1.02); TOTAL PROTEIN 5.1 g/dL (6.4-8.2)
--- NOTE | 2019-01-16 06:49 | RAD ---
HISTORY: Follow-up pneumonia Study: Chest AP portable Comparison: 01/15/2019, 01/14/2019 Findings: The heart remains enlarged. No congestive heart failure is noted. There is some subsegmental atelectasis now in the right perihilar region of the right lung base. The remainder of the right lung is clear. There is significant improvement in the aeration of the left lower lobe compared to the prior examination. This likely represents resolving atelectasis. The remainder of the left lung is clear. Bony thorax is unremarkable. IMPRESSION: Mild cardiomegaly without congestive heart failure Significant improvement in the aeration of the left lower lobe when compared with the prior examination Subsegmental atelectasis right lung base Reported By:
[2019-01-16] MEDS: MUCOMYST 20% 200 MG/ML NEB SCH ×5 (08:13→20:09)
[2019-01-16] MEDS: DUONEB 0.5 MG/3 MG NEB SCH ×5 (08:13→20:09)
[2019-01-16] MEDS: PULMICORT NEB TX 0.5 MG NEB SCH ×2 (08:13→20:09)
[2019-01-16] MEDS: ARTIFICIAL TEARS DROPS EACHEYE SCH ×2 (08:33→20:29)
[2019-01-16] MEDS: FLONASE NASAL SPRAY ENOSTRIL SCH (08:33)
[2019-01-16] MEDS: COLACE CAP 100 MG PO SCH ×2 (08:34→20:26)
[2019-01-16] MEDS: COREG TAB 25 MG PO SCH ×2 (08:34→20:25)
[2019-01-16] MEDS: COZAAR PO SCH ×2 (08:34→20:26)
[2019-01-16] MEDS: NORVASC TAB 5 MG PO SCH (08:35)
[2019-01-16] MEDS: PROTONIX TAB 40 MG PO SCH (08:35)
[2019-01-16] MEDS: ROBITUSSIN DM PO SCH ×5 (08:35→20:34)
[2019-01-16] MEDS: PREDNISONE TAB 5 MG PO SCH (08:35)
[2019-01-16] MEDS: MIRALAX POWDER (1 DOSE 17 G) PO SCH (08:35)
[2019-01-16] MEDS: HEMOCYTE-PLUS PO SCH (08:35)
[2019-01-16] MEDS: VSL#3 PO SCH (08:36)
[2019-01-16] MEDS: ZANTAC PO SCH ×2 (08:36→20:25)
[2019-01-16] MEDS ORDERED: NS 1/2 1000 ML IV 1,000 ML IV ONE ×2 (09:54→20:05)
[2019-01-16] MEDS: NS 1/2 1000 ML IV 1,000 ML IV SCH ×2 (10:22→21:36)
[2019-01-16] MEDS: HumuLIN R SUBCUT PRN ×2 (11:36→21:27)
[2019-01-16] MEDS: TUSSIONEX PENNKINETIC SUSP PO PRN (14:50)
[2019-01-16] MEDS: PRAVACHOL PO SCH (20:25)
[2019-01-16] MEDS: TESSALON PERLES PO PRN (20:28)
[2019-01-16] MEDS: KLONOPIN TAB 0.5 MG PO SCH (20:28)
[2019-01-16] MEDS: OXYBUTYNIN CHLORIDE ER PO SCH (20:28)
[2019-01-16] MEDS: SNACK - Diabetic Appropriate PO SCH (20:33)
[2019-01-16] MEDS ORDERED: ZyrTEC TAB 10 MG PO SCH (21:00)
--- NOTE | 2019-01-16 21:33 | PCM.PROG ---
Progress Note - Progress Note for Day of Date of Exam: 01/16/19 - Subjective Subjective: WAS ADMITTED FOR ACUTE BRONCHOPNEUMONIA. TODAY, SHE IS ALERT AND ORIENTED, LYING IN BED ON MORNING ROUNDS. SHE CONTINUES WITH COMPLAINTS OF SOB AND PRODUCTIVE COUGH, BUT REPORTS SLIGHT IMPROVEMENT SINCE YESTERDAY. BILATERAL LUNGS CONTINUE WITH SCATTERED WHEEZING THROUGHOUT. HER LAKSHMI LS THIS MORNING ARE 98.5-70-20-96%-164/70. LABS WERE OBTAINED. ABNORMAL LAB VALUES INCLUDE THE FOLLOWING: RBC 2.70, HGB 8.8, HCT 25.6, CREATININE 1.44, GLUCOSE 207, TOTAL PROTEIN 5.1, ALBUMIN 2.1. BLOOD AND SPUTUM CULTURE PENDING. SPUTUM CULTURE REPORTS GROWTH OF HAEMOPHILUS INFLUENZAE. CHEST XRAY OBTAINED AND REVEALED: Mild cardiomegaly without congestive heart failure. Significant improvement in the aeration of the left lower lobe when compared with the prior examination. Subsegmental atelectasis right lung base. SHE IS CURRENTLY RECEIVING IV ANTIBIOTICS, RESPIRATORY TX, AND SUPPLEMENTAL OXYGEN. WE WILL CONTINUE WITH CURRENT PLAN OF CARE TODAY. OTHERWISE, WE WILL FOLLOW UP WITH AM LABS AND CONTINUE TO MONITOR. - Past Medical Family Social History Past Med/Fam/Surg Hx: No changes since H&P Allergies: Allergies Penicillins Allergy (Verified 04/04/18 19:58) zolpidem Allergy (Verified 04/04/18 19:58) diazepam Adverse Reaction (Verified 04/04/18 19:58) CONFUSION - Review of Systems ROS: No change since H&P - Vital Signs and I&O's Vital Signs: Temperature 98.6 F Pulse Rate [Right Brachial] 65 Pulse Rate [Left Brachial] 64 Pulse Rate [Left Radial] 65 Pulse Rate 81 Respiratory Rate 20 Blood Pressure [Right Arm] 110/47 Blood Pressure [Left Femoral 129/56 Artery] Blood Pressure [Left Arm] 109/46 Blood Pressure 137/59 O2 Sat by Pulse Oximetry 94 Intake and Output: Intake & Output 01/14/19 01/15/19 01/16/19 01/17/19 11:59 11:59 11:59 11:59 Intake Total 1689 / 1689 2730 / 2730 2770 / 2770 1080 / 1080 Balance 1689 / 1689 2730 / 2730 2770 / 2770 1080 / 1080 - Physical Exam Oriented: Normal Eyes: Normal Ear: Normal Nose: Normal Throat: Tonsillar Hypertrophy Respiratory: Generalized, Wheezes Cardiovascular: Normal. negative: S3, S4, Murmur, Edema : Normal Auscultation: Bowel Sounds: Normal Tenderness: Normal Skin: Normal Musculoskeletal: Normal Psychiatric: Normal Mood Description: Calm Affect: Normal Speech Pattern: Clear, Appropriate - Laboratory and Diagnostics Result Diagrams: 01/16/19 04:20 01/16/19 04:20 Labs: 01/11/19 20:12 Blood Blood Culture - Final 01/11/19 20:33 Blood Blood Culture - Final 01/11/19 19:32 Sputum - Expectorated Sputum Sputum Culture - Final 01/11/19 19:32 Sputum - Expectorated Sputum - Final Laboratory WBC 9.0 X10^3/uL (3.6-10.0) 01/16/19 04:20 RBC 2.70 X10^6/uL (3.5-5.4) L 01/16/19 04:20 Hgb 8.8 g/dL (12.0-16.0) L 01/16/19 04:20 Hct 25.6 % (36.0-47.0) L 01/16/19 04:20 MCV 94.9 fL (80.0-100.0) 01/16/19 04:20 MCH 32.7 pg (27.0-34.0) 01/16/19 04:20 MCHC 34.5 g/dL (33.0-35.0) 01/16/19 04:20 RDW 12.9 % (11.6-16.5) 01/16/19 04:20 Plt Count 176 X10^3/uL (150.0-450.0) 01/16/19 04:20 MPV 8.0 fL (7.4-11.0) 01/16/19 04:20 Neut % (Auto) 77.7 % (42.0-75.0) H 01/16/19 04:20 Lymph % (Auto) 11.9 % (21.0-51.0) L 01/16/19 04:20 Hill % (Auto) 6.8 % (0.0-13.0) 01/16/19 04:20 Eos % (Auto) 3.4 % (0.9-2.9) H 01/16/19 04:20 Baso % (Auto) 0.2 % (0.2-1.0) 01/16/19 04:20 Neut # (Auto) 7.0 x10^3/uL (2.2-4.8) H 01/16/19 04:20 Lymph # (Auto) 1.1 X10^3/uL (1.3-2.9) L 01/16/19 04:20 Hill # (Auto) 0.6 x10^3/uL (0.3-0.8) 01/16/19 04:20 Eos # (Auto) 0.3 x10^3/uL (0.0-0.2) H 01/16/19 04:20 Baso # (Auto) 0.0 X10^3/uL (0.0-0.1) 01/16/19 04:20 Absolute Nucleated RBC 0.0 /100WBC 01/16/19 04:20 Sample Site Lr 01/11/19 20:12 ABG pH 7.340 (7.35-7.45) L 01/11/19 20:12 ABG pCO2 54.0 mmHg (35.0-45.0) H* 01/11/19 20:12 ABG pO2 71.0 mmHg (80.0-100.0) L 01/11/19 20:12 ABG HCO3 29.1 mmol/L (22-26) H 01/11/19 20:12 ABG O2 Saturation 93.0 % (90-100) 01/11/19 20:12 ABG Base Excess 2.3 mmol/L (-2.0-2.0) H 01/11/19 20:12 Dung Test Pos 01/11/19 20:12 A-a Gradient 11.0 mmHg 01/11/19 20:12 FiO2 21.0 01/11/19 20:12 Blood Gas Comments Poly well cb 01/11/19 20:12 Sodium 139 mmol/L (136-145) 01/16/19 04:20 Corrected Sodium 142 mmol/L (136-145) 01/16/19 04:20 Potassium 4.4 mmol/L (3.5-5.1) 01/16/19 04:20 Chloride 104 mmol/L (98-107) 01/16/19 04:20 Carbon Dioxide 30.8 mmol/L (21-32) 01/16/19 04:20 BUN 17 mg/dL (7-18) 01/16/19 04:20 Creatinine 1.44 mg/dL (0.55-1.02) H 01/16/19 04:20 Est GFR (MDRD) Af Amer 44 (>60) L 01/16/19 04:20 Est GFR (MDRD) Non-Af 37 (>60) L 01/16/19 04:20 Glucose 207 mg/dL (65-99) H 01/16/19 04:20 POC Glucose (mg/dL) 206 mg/dL (65-99) H 01/15/19 19:54 Calcium 8.7 mg/dL (8.5-10.1) 01/16/19 04:20 Corrected Calcium 10.2 mg/dL (8.5-10.1) H 01/16/19 04:20 Total Bilirubin 0.30 mg/dL (0.2-1.0) 01/16/19 04:20 AST 21 Units/L (15-37) 01/16/19 04:20 ALT 55 Units/L (12-78) 01/16/19 04:20 Alkaline Phosphatase 74 Units/L (46-116) 01/16/19 04:20 Total Protein 5.1 g/dL (6.4-8.2) L 01/16/19 04:20 Albumin 2.1 g/dL (3.4-5.0) L 01/16/19 04:20 Globulin 3.0 g/dL (2.5-4.5) 01/16/19 04:20 Albumin/Globulin Ratio 0.7 Ratio (1.1-2.1) L 01/16/19 04:20 - Plan (1) Bronchopneumonia Status: Acute Plan: LEVAQUIN 750MG IV DAILY, RESPIRATORY TREATMENTS, SUPPLEMENTAL OXYGEN, CONTINUE TO MONITOR
[2019-01-17] MEDS: NS 1/2 1000 ML IV 1,000 ML IV SCH (05:11)
[2019-01-17] MEDS: APRESOLINE TAB 25 MG PO SCH ×2 (05:11→12:14)
[2019-01-17 05:20] LABS: BASOPHILS % (AUTO) 0.2 % (0.2-1.0); EOSINOPHILS # (AUTO) 0.7 x10^3/uL (0.0-0.2); EOSINOPHILS % (AUTO) 7.9 % (0.9-2.9); HEMATOCRIT 27.9 % (36.0-47.0); HEMOGLOBIN 9.6 g/dL (12.0-16.0); LYMPHOCYTES # (AUTO) 1.2 X10^3/uL (1.3-2.9); LYMPHOCYTES % (AUTO) 13.2 % (21.0-51.0); MEAN CORPUSCULAR HEMOGLOBIN 32.9 pg (27.0-34.0); MEAN CORPUSCULAR HGB CONC 34.4 g/dL (33.0-35.0); MEAN CORPUSCULAR VOLUME 95.8 fL (80.0-100.0); MEAN PLATELET VOLUME 7.9 fL (7.4-11.0); MONOCYTES # (AUTO) 0.5 x10^3/uL (0.3-0.8); NEUTROPHILS # (AUTO) 6.6 x10^3/uL (2.2-4.8); NEUTROPHILS % (AUTO) 72.7 % (42.0-75.0); PLATELET COUNT 198 X10^3/uL (150.0-450.0); RED BLOOD COUNT 2.91 X10^6/uL (3.5-5.4); RED CELL DISTRIBUTION WIDTH 12.7 % (11.6-16.5)
[2019-01-17 05:22] LABS: ALBUMIN 2.3 g/dL (3.4-5.0); CALCIUM 8.8 mg/dL (8.5-10.1); COR CA(FOR HYPOALB) 10.2 mg/dL (8.5-10.1); CREATININE 1.31 mg/dL (0.55-1.02); TOTAL PROTEIN 5.5 g/dL (6.4-8.2)
[2019-01-17] MEDS: HumuLIN R SUBCUT PRN ×2 (05:44→12:13)
[2019-01-17] MEDS: TUSSIONEX PENNKINETIC SUSP PO PRN (05:52)
--- NOTE | 2019-01-17 06:49 | RAD ---
HISTORY: Follow-up pneumonia Study: Chest AP portable Comparison: 01/16/2019 Findings: The heart remains enlarged. No congestive heart failure is noted. No acute alveolar infiltrates or pleural effusions are identified. The bony thorax is unremarkable. IMPRESSION: Mild cardiomegaly without congestive heart failure No residual infiltrates identified Reported By:
[2019-01-17] MEDS: DUONEB 0.5 MG/3 MG NEB SCH ×2 (08:25→12:06)
[2019-01-17] MEDS: MUCOMYST 20% 200 MG/ML NEB SCH ×2 (08:25→12:07)
[2019-01-17] MEDS: PULMICORT NEB TX 0.5 MG NEB SCH (08:25)
[2019-01-17] MEDS: MIRALAX POWDER (1 DOSE 17 G) PO SCH (08:58)
[2019-01-17] MEDS: VSL#3 PO SCH (09:00)
[2019-01-17] MEDS ORDERED: LEVAQUIN PREMIX IV 750 MG 750 MG/150 ML BAG IV SCH (09:00)
[2019-01-17] MEDS: PROTONIX TAB 40 MG PO SCH (09:01)
[2019-01-17] MEDS: COLACE CAP 100 MG PO SCH (09:01)
[2019-01-17] MEDS: COZAAR PO SCH (09:02)
[2019-01-17] MEDS: HEMOCYTE-PLUS PO SCH (09:02)
[2019-01-17] MEDS: ROBITUSSIN DM PO SCH ×2 (09:02→12:14)
[2019-01-17] MEDS: COREG TAB 25 MG PO SCH (09:03)
[2019-01-17] MEDS: ZANTAC PO SCH (09:03)
[2019-01-17] MEDS: PREDNISONE TAB 5 MG PO SCH (09:03)
[2019-01-17] MEDS: NORVASC TAB 5 MG PO SCH (09:04)
[2019-01-17] MEDS: FLONASE NASAL SPRAY ENOSTRIL SCH (09:17)
[2019-01-17] MEDS: ARTIFICIAL TEARS DROPS EACHEYE SCH (09:17)
[2019-01-17 13:02] VITALS: BP 115/53
[2019-01-19] MEDS ORDERED: LANTUS SC ONE (22:21)
== END 2019-01-17 13:26 | DRG 195 ==
LOC: MED/SURG → OBSVTOIN 19:27
PROVIDERS: ADMIT Internal Medicine; ATTEND Internal Medicine
DX: E11.65 Type 2 diabetes mellitus with hyperglycemia; R06.02 Shortness of breath; I25.10 Atherosclerotic heart disease of native coronary artery without angina pectoris; R53.1 Weakness; I10 Essential (primary) hypertension; R26.89 Other abnormalities of gait and mobility; J18.0 Bronchopneumonia, unspecified organism
CPT/HCPCS: 36415; 36600; 71010; 71020; 71045; 71046; 80053; 82803; 82947; 85025; 87040; 87070; 87077; 87185; 87186; 87205; 94640; 94669; 94760; 97161; A4222; J1815; J1956; J3490; J7512; J7608; J7620; J7626

== ENCOUNTER 2019-06-12 16:43 | Inpatient (IN) ==
[2019-06-12] MEDS ORDERED: LEVAQUIN PREMIX IV 500 MG 500 MG/100 ML BAG IV SCH (18:00)
[2019-06-12] MEDS ORDERED: NS 1/2 1000 ML IV 1,000 ML ONE (18:01)
[2019-06-12] MEDS ORDERED: SALINE 3% 15 ML NEB TX NEB ONE (18:25)
[2019-06-12 18:40] LABS: BASOPHILS % (AUTO) 0.8 % (0.2-1.0); EOSINOPHILS # (AUTO) 0.1 x10^3/uL (0.0-0.2); HEMATOCRIT 34.6 % (36.0-47.0); HEMOGLOBIN 11.6 g/dL (12.0-16.0); LYMPHOCYTES # (AUTO) 0.7 X10^3/uL (1.3-2.9); LYMPHOCYTES % (AUTO) 10.8 % (21.0-51.0); MEAN CORPUSCULAR HEMOGLOBIN 32.1 pg (27.0-34.0); MEAN CORPUSCULAR HGB CONC 33.6 g/dL (33.0-35.0); MEAN CORPUSCULAR VOLUME 95.4 fL (80.0-100.0); MEAN PLATELET VOLUME 8.1 fL (7.4-11.0); MONOCYTES # (AUTO) 0.5 x10^3/uL (0.3-0.8); MONOCYTES % (AUTO) 8.2 % (0.0-13.0); NEUTROPHILS % (AUTO) 79.2 % (42.0-75.0); PLATELET COUNT 167 X10^3/uL (150.0-450.0); RED BLOOD COUNT 3.63 X10^6/uL (3.5-5.4); RED CELL DISTRIBUTION WIDTH 13.1 % (11.6-16.5); WHITE BLOOD COUNT 6.3 X10^3/uL (3.6-10.0)
[2019-06-12 18:50] LABS: ALANINE AMINOTRANSFERASE 30 Units/L (12-78); ALBUMIN 3.4 g/dL (3.4-5.0); ALKALINE PHOSPHATASE 76 Units/L (46-116); ASPARTATE AMINO TRANSFERASE 22 Units/L (15-37); BLOOD UREA NITROGEN 41 mg/dL (7-18); CALCIUM 9.1 mg/dL (8.5-10.1); CARBON DIOXIDE 29.7 mmol/L (21-32); CHLORIDE 100 mmol/L (98-107); COR NA(FOR HYPERGLY) 142 mmol/L (136-145); CREATININE 1.76 mg/dL (0.55-1.02); SODIUM 138 mmol/L (136-145); eGFR NON BLACK RACES 29 (>60)
[2019-06-12] MEDS: PULMICORT NEB TX 0.5 MG NEB SCH (20:27)
[2019-06-12] MEDS: DUONEB 0.5 MG/3 MG NEB SCH (20:27)
[2019-06-12] MEDS: MUCOMYST 20% 200 MG/ML NEB SCH (20:28)
[2019-06-12] MEDS: NS 1/2 1000 ML IV 1,000 ML IV SCH (20:39)
[2019-06-12] MEDS: VSL#3 PO SCH (20:39)
[2019-06-12] MEDS: ROBITUSSIN DM PO SCH (20:40)
[2019-06-12] MEDS: ULTRAM PO PRN (23:51)
[2019-06-13] MEDS: DUONEB 0.5 MG/3 MG NEB SCH ×6 (00:58→20:14)
[2019-06-13 05:03] LABS: BASOPHILS % (AUTO) 0.5 % (0.2-1.0); EOSINOPHILS # (AUTO) 0.1 x10^3/uL (0.0-0.2); EOSINOPHILS % (AUTO) 1.9 % (0.9-2.9); HEMATOCRIT 29.7 % (36.0-47.0); HEMOGLOBIN 10.2 g/dL (12.0-16.0); LYMPHOCYTES # (AUTO) 0.9 X10^3/uL (1.3-2.9); LYMPHOCYTES % (AUTO) 17.8 % (21.0-51.0); MEAN CORPUSCULAR HEMOGLOBIN 32.3 pg (27.0-34.0); MEAN CORPUSCULAR HGB CONC 34.2 g/dL (33.0-35.0); MEAN CORPUSCULAR VOLUME 94.5 fL (80.0-100.0); MEAN PLATELET VOLUME 8.5 fL (7.4-11.0); MONOCYTES # (AUTO) 0.6 x10^3/uL (0.3-0.8); MONOCYTES % (AUTO) 11.7 % (0.0-13.0); NEUTROPHILS # (AUTO) 3.3 x10^3/uL (2.2-4.8); NEUTROPHILS % (AUTO) 68.1 % (42.0-75.0); PLATELET COUNT 136 X10^3/uL (150.0-450.0); RED BLOOD COUNT 3.15 X10^6/uL (3.5-5.4); WHITE BLOOD COUNT 4.8 X10^3/uL (3.6-10.0)
[2019-06-13 05:20] LABS: ALBUMIN 2.7 g/dL (3.4-5.0); CALCIUM 8.2 mg/dL (8.5-10.1); CARBON DIOXIDE 29.2 mmol/L (21-32); COR CA(FOR HYPOALB) 9.2 mg/dL (8.5-10.1); CREATININE 1.37 mg/dL (0.55-1.02); TOTAL PROTEIN 5.8 g/dL (6.4-8.2)
[2019-06-13] MEDS ORDERED: MICRO K EXTEN CAP 10 MEQ PO PRN (05:28)
[2019-06-13] MEDS ORDERED: K-RIDER 10 MEQ/NS 100 ML 10 MEQ/100 ML BAG IV PRN (05:28)
[2019-06-13] MEDS ORDERED: POTASSIUM CHL 40 MEQ/NS 0.45% 500 ML IV PRN (05:28)
[2019-06-13] MEDS ORDERED: K-DUR TAB 20 MEQ PO PRN (05:28)
[2019-06-13] MEDS ORDERED: POTASSIUM CHLORIDE LIQ 20 MEQ UDC PO PRN (05:28)
[2019-06-13] MEDS ORDERED: POTASSIUM CHL 60 MEQ/NS 0.45% 500 ML IV PRN (05:28)
[2019-06-13] MEDS ORDERED: KLOR-CON PO PRN (05:28)
[2019-06-13] MEDS ORDERED: MAGNESIUM SULFATE 1 GRAM/100 mL PREMIX 1 G/100 ML BAG IV ONE (05:53)
[2019-06-13] MEDS ORDERED: K-DUR TAB 20 MEQ ONE ×2 (05:53→05:56)
[2019-06-13] MEDS: TUSSIONEX PENNKINETIC SUSP PO PRN ×2 (05:59→18:20)
[2019-06-13] MEDS: HumuLIN R SUBCUT PRN ×2 (06:00→16:43)
[2019-06-13] MEDS: MAGNESIUM SULFATE 1 GRAM/100 mL PREMIX 1 GM/100 ML BAG IV PRN ×2 (06:01→09:28)
[2019-06-13] MEDS: LEVAQUIN PREMIX IV 500 MG 500 MG/100 ML BAG IV SCH (08:10)
[2019-06-13] MEDS: VSL#3 PO SCH (08:11)
[2019-06-13] MEDS: ROBITUSSIN DM PO SCH ×4 (08:11→20:57)
[2019-06-13] MEDS: PULMICORT NEB TX 0.5 MG NEB SCH ×2 (08:50→20:14)
[2019-06-13] MEDS: MUCOMYST 20% 200 MG/ML NEB SCH ×4 (08:50→20:14)
[2019-06-13] MEDS: NS 1/2 1000 ML IV 1,000 ML IV SCH ×3 (09:30→21:47)
[2019-06-13] MEDS ORDERED: ULTRAM PO PRN (10:33)
[2019-06-13] MEDS ORDERED: UMECLIDINIUM VILANTEROL INH SCH (10:45)
[2019-06-13] MEDS ORDERED: AMINO ACIDS PROTEIN HYDROLYS PO SCH (10:45)
[2019-06-13] MEDS ORDERED: [UNRECOGNIZED DRUG - OTHER] PO SCH (10:45)
[2019-06-13] MEDS ORDERED: CATAPRES-TTS-3 TD SCH (11:00)
[2019-06-13] MEDS ORDERED: PHARMACY CONSULT - DOSE _____ XX SCH (11:00)
[2019-06-13] MEDS: PROTONIX TAB 40 MG PO SCH (11:30)
[2019-06-13] MEDS: FLONASE NASAL SPRAY ENOSTRIL SCH (11:30)
[2019-06-13] MEDS: ARTIFICIAL TEARS DROPS EACHEYE SCH ×2 (11:30→11:44)
[2019-06-13] MEDS: COREG TAB 25 MG PO SCH ×2 (11:31→20:51)
[2019-06-13] MEDS: COZAAR PO SCH ×2 (11:31→20:50)
[2019-06-13] MEDS: NORVASC TAB 5 MG PO SCH (11:31)
[2019-06-13] MEDS: ZANTAC PO SCH ×2 (11:31→20:48)
[2019-06-13] MEDS: HEMOCYTE-PLUS PO SCH (11:31)
[2019-06-13] MEDS: COLACE CAP 100 MG PO SCH ×2 (11:31→20:49)
[2019-06-13] MEDS: MIRALAX POWDER (1 DOSE 17 G) PO SCH (11:32)
[2019-06-13] MEDS: HIPREX PO SCH ×2 (11:43→21:46)
[2019-06-13] MEDS: APRESOLINE TAB 25 MG PO SCH ×2 (13:05→21:46)
[2019-06-13] MEDS: LOVENOX INJ 30 MG SYR SC SCH (13:15)
[2019-06-13] MEDS ORDERED: NS 1/2 1000 ML IV 1,000 ML ONE (18:14)
--- NOTE | 2019-06-13 19:29 | DR.H&P ---
H&P - History & Physical for Day of: H&P Date: 06/12/19 - Chief Complaint Chief Complaint: COUGH, SOB, FEVER - History of Present Illness History of Present Illness: IS A 89 YEAR OLD PATIENT OF OURS WHO IS A RESIDENT OF [facility]. SHE PRESENTED TO THE HOSPITAL A DIRECT ADMISSION DUE TO FAILED OUTPATIENT TREATMENT OF BRONCHOPNEUMONIA. SHE HAS BEEN RECEIVING DOXYCYCLINE 100MG PO BID X 10 DAYS WELL RESPIRATORY TREATMENTS. SHE REPORTS THAT SHE CONTINUES WITH SHORTNESS OF BREATH AND A PRODUCTIVE COUGH DESPITE ANTIBIOTICS AND TREATMENTS. SKILLED NURSING STAFF ALSO REPORTS THAT SHE HAS BEEN FEBRILE. ON ARRIVAL TO THE HOSPITAL, VITALS WERE 100.3-74-18-94%-131/58. LABS WERE OBTAINED. ABNORMAL LAB VALUES INCLUDE THE FOLLOWING: HGB 11.6, HCT 34.6, BUN 41, CREATININE 1.76, GLUCOSE 247. SPUTUM AND BLOOD CULTURES ARE PENDING. A CHEST XRAY WAS OBTAINED AND REVEALED: MILD CARDIOMEGALY WITHOUT CONGESTIVE HEART FAILURE. LUNGS CLEAR. SHE WAS STARTED ON IV LEVAQUIN, RESPIRATORY TREATMENTS, SUPPLEMENTAL OXYGEN, AND HOME MEDICATIONS RESUMED. WE PLAN TO FOLLOW UP WITH AM LABS AND CHEST XRAY AND CONTINUE TO MONITOR. - Past Medical History Past Medical History: VA, Coronary Artery Disease, Hypertension, Diabetes, Renal Disease, Depression, Anemia, CVA, PUD, Arthritis, Gout, CHF Additional Medical History: Legally Blind, Tremors, Bronchitis, Constipation, Frequent UTI's, Gout, Breast Cancer, Fracture of Wrist, Fracture of Right Femur, TIAs, back pain, DDD - Past Surgical History Surgical History: Angioplasty/Stents, Appendectomy, Cholecystectomy, Ortho Surgery Additional Surgical History: back surgery, left lumpectomy - Family History Family Medical History: Diabetes Mellitus, Cancer, [place], Coronary Artery Disease, Sudden Cardiac , Hypertension - Social History Does patient currently use any type of tobacco product: No Have you used tobacco products in the last 12 months: No Type of Tobacco Use: None Alcohol Use: None Drug Use: None - Medications Home Medications: lanolin [From Artificial Tears] Allergy (Verified 06/13/19 13:33) mineral oil [From Artificial Tears] Allergy (Verified 06/13/19 13:33) Penicillins Allergy (Verified 04/04/18 19:58) petrolatum,white [From Artificial Tears] Allergy (Verified 06/13/19 13:33) zolpidem Allergy (Verified 04/04/18 19:58) diazepam Adverse Reaction (Verified 04/04/18 19:58) CONFUSION CONTINUE taking the following medications diphenhydramine HCl [Benadryl Allergy] 25 mg PO BID 06/12/19 [History] ipratropium-albuterol 1 ea NEB Q6H PRN 06/12/19 [History] tramadol 50 mg PO Q6H PRN 06/12/19 [History] - Review of Systems Constitutional: Fever, Weakness Eyes: No Symptoms Reported ENT: No Symptoms Reported Respiratory: Cough, Shortness of Breath, Sputum, Wheezing Cardiovascular: No Symptoms Reported Gastrointestinal: No Symptoms Reported Genitourinary: No Symptoms Reported Musculoskeletal: No Symptoms Reported Skin: No Symptoms Reported Neurological: Weakness - Physical Exam Vital Signs: Temperature 98.7 F Pulse Rate [Left] 67 Pulse Rate 67 Respiratory Rate 20 Blood Pressure [Right Arm] 134/63 Blood Pressure [Left Femoral 129/56 Artery] Blood Pressure [Left Arm] 151/73 Blood Pressure 115/53 O2 Sat by Pulse Oximetry 97 Oriented: Normal Eyes: Normal Ear: Normal Nose: Normal Throat: Normal Respiratory: Rhonchi Throughout, Wheezes Throughout Cardiovascular: Normal. negative: S3, S4, Murmur : Normal Auscultation: Bowel Sounds: Normal Palpation: Normal Tenderness: Normal Skin: Normal Musculoskeletal: Normal Psychiatric: Normal Mood Description: Calm Affect: Normal Speech Pattern: Clear - Assessment/Plan (1) Bronchopneumonia Status: Acute Plan: ADMIT, IV LEVAQUIN, RESPIRATORY TREATMENTS, SUPPLEMENTAL OXYGEN, CONTINUE TO MONITOR (2) Hypertension Qualifiers: Hypertension type: essential hypertension Qualified Code(s): I10 - Essential (primary) hypertension Status: Chronic (3) GERD (gastroesophageal reflux disease) Qualifiers: Esophagitis presence: esophagitis presence not specified Status: Chronic (4) Hyperlipidemia Qualifiers: Hyperlipidemia type: mixed hyperlipidemia Status: Chronic (5) AZAR (generalized anxiety disorder) Status: Chronic (6) Coronary atherosclerosis Qualifiers: Coronary Disease-Associated Artery/Lesion type: [place] artery [place] vs. transplanted heart: [place] heart Associated angina: angina presence unspecified Qualified Code(s): I25.10 - Atherosclerotic heart disease of [place] coronary artery without angina pectoris Status: Chronic (7) Type II diabetes mellitus, uncontrolled Qualifiers: Glycemic state: with hyperglycemia Qualified Code(s): E11.65 - Type 2 diabetes mellitus with hyperglycemia Status: Chronic - Allergies Allergies/Adverse Reactions: Allergies Allergy/AdvReac Type Severity Reaction Status Date / Time lanolin Allergy Verified 06/13/19 13:33 [From Artificial Tears] mineral oil Allergy Verified 06/13/19 13:33 [From Artificial Tears] Penicillins Allergy Verified 04/04/18 19:58 petrolatum,white Allergy Verified 06/13/19 13:33 [From Artificial Tears] zolpidem Allergy Verified 04/04/18 19:58 diazepam AdvReac CONFUSION Verified 04/04/18 19:58
[2019-06-13] MEDS ORDERED: SNACK - Diabetic Appropriate PO SCH (20:00)
[2019-06-13] MEDS: KLONOPIN TAB 0.5 MG PO SCH (20:48)
[2019-06-13] MEDS: PRAVACHOL PO SCH (20:49)
[2019-06-13] MEDS: BENADRYL CAP/TAB 25 MG PO SCH (20:51)
[2019-06-13] MEDS: LANTUS SC SCH (20:54)
[2019-06-13] MEDS: SNACK - Diabetic Appropriate PO SCH (20:56)
[2019-06-14] MEDS: DUONEB 0.5 MG/3 MG NEB SCH ×6 (00:05→20:17)
[2019-06-14 05:10] LABS: BASOPHILS % (AUTO) 0.5 % (0.2-1.0); EOSINOPHILS # (AUTO) 0.3 x10^3/uL (0.0-0.2); EOSINOPHILS % (AUTO) 5.9 % (0.9-2.9); HEMATOCRIT 31.2 % (36.0-47.0); HEMOGLOBIN 10.6 g/dL (12.0-16.0); LYMPHOCYTES # (AUTO) 0.9 X10^3/uL (1.3-2.9); MEAN CORPUSCULAR HEMOGLOBIN 32.4 pg (27.0-34.0); MEAN CORPUSCULAR HGB CONC 33.9 g/dL (33.0-35.0); MEAN CORPUSCULAR VOLUME 95.6 fL (80.0-100.0); MEAN PLATELET VOLUME 8.7 fL (7.4-11.0); MONOCYTES # (AUTO) 0.5 x10^3/uL (0.3-0.8); NEUTROPHILS # (AUTO) 2.8 x10^3/uL (2.2-4.8); NEUTROPHILS % (AUTO) 62.6 % (42.0-75.0); PLATELET COUNT 141 X10^3/uL (150.0-450.0); RED BLOOD COUNT 3.26 X10^6/uL (3.5-5.4); RED CELL DISTRIBUTION WIDTH 12.7 % (11.6-16.5); WHITE BLOOD COUNT 4.5 X10^3/uL (3.6-10.0)
[2019-06-14] MEDS: APRESOLINE TAB 25 MG PO SCH ×3 (05:24→21:28)
[2019-06-14 05:27] LABS: ALBUMIN 2.6 g/dL (3.4-5.0); CALCIUM 8.2 mg/dL (8.5-10.1); CARBON DIOXIDE 30.5 mmol/L (21-32); COR CA(FOR HYPOALB) 9.3 mg/dL (8.5-10.1); CREATININE 1.28 mg/dL (0.55-1.02); TOTAL PROTEIN 5.8 g/dL (6.4-8.2)
[2019-06-14 07:52] VITALS: BMI 23.0
[2019-06-14] MEDS: PULMICORT NEB TX 0.5 MG NEB SCH ×2 (08:27→20:17)
[2019-06-14] MEDS: MUCOMYST 20% 200 MG/ML NEB SCH ×4 (08:27→20:17)
--- NOTE | 2019-06-14 08:43 | PCM.PROG ---
Progress Note - Progress Note for Day of Date of Exam: 06/13/19 - Subjective Subjective: WAS ADMITTED FOR BRONCHOPNEUMONIA. TODAY, SHE IS ALERT AND ORIENTED, LYING IN BED ON MORNING ROUNDS. SHE CONTINUES WITH COMPLAINTS OF SHORTNESS OF BREATH AND A PRODUCTIVE COUGH. ON EXAMINATION, HEART IS REGULAR IN RATE AND RHYTHM. BILATERAL LUNGS ARE NOTED WITH SCATTERED WHEEZING AND RHONCHI. ABDOMEN IS ROUND, SOFT, AND NON-TENDER WITH NORMAL BOWEL SOUNDS NOTED IN ALL QUADRANTS. HER VITALS THIS MORNING ARE: 98.0-68-18-97%-136/80. LABS WERE OBTAINED. ABNORMAL LAB VALUES INCLUDE THE FOLLOWING: RBC 3.15, HGB 10.2, HCT 29.7, PLT COUNT 136, BUN 30, CREATININE 1.37, GLUCOSE 259, CALCIUM 8.2, TOTAL PROTEIN 5.8, ALBUMIN 2.7. BLOOD AND SPUTUM CULTURES ARE PENDING. A CHEST XRAY WAS OBTAINED TODAY AND REVEALED: MILD CARDIOMEGALY WITHOUT CHF. LUNGS CLEAR. SHE IS CURRENTLY RECEIVING IV LEVAQUIN, RESPIRATORY TREATMENTS, SUPPLEMENTAL OXYGEN, AND HOME MEDICATIONS WERE RESUMED. WE WILL CONTINUE WITH CURRENT PLAN OF CARE TODAY. OTHERWISE, WE PLAN TO FOLLOW UP WITH AM LABS AND CONTINUE TO MONITOR. - Past Medical Family Social History Past Med/Fam/Surg Hx: No changes since H&P Allergies: Allergies lanolin [From Artificial Tears] Allergy (Verified 06/13/19 13:33) mineral oil [From Artificial Tears] Allergy (Verified 06/13/19 13:33) Penicillins Allergy (Verified 04/04/18 19:58) petrolatum,white [From Artificial Tears] Allergy (Verified 06/13/19 13:33) zolpidem Allergy (Verified 04/04/18 19:58) diazepam Adverse Reaction (Verified 04/04/18 19:58) CONFUSION - Review of Systems ROS: No change since H&P - Vital Signs and I&O's Vital Signs: Temperature 99.0 F Pulse Rate [Left] 80 Pulse Rate 72 Respiratory Rate 18 Blood Pressure [Right Arm] 137/60 Blood Pressure [Left Femoral 129/56 Artery] Blood Pressure [Left Arm] 151/73 Blood Pressure 115/53 O2 Sat by Pulse Oximetry 94 Intake and Output: Intake & Output 06/11/19 06/12/19 06/13/19 06/14/19 11:59 11:59 11:59 11:59 Intake Total 1750 / 1750 3425 / 3425 Balance 1750 / 1750 3425 / 3425 - Physical Exam Oriented: Normal Eyes: Normal Ear: Normal Nose: Normal Throat: Normal Respiratory: Generalized, Wheezes, Rhonchi Cardiovascular: Normal. negative: S3, S4, Murmur : Normal Auscultation: Bowel Sounds: Normal Palpation: Normal Tenderness: Normal Skin: Normal Musculoskeletal: Normal Psychiatric: Normal Mood Description: Calm Affect: Normal Speech Pattern: Clear - Laboratory and Diagnostics Result Diagrams: 06/14/19 04:38 06/14/19 04:38 Labs: 06/12/19 18:30 Sputum - Expectorated Sputum Sputum Culture - Preliminary 06/12/19 18:30 Sputum - Expectorated Sputum - Final Laboratory WBC 4.5 X10^3/uL (3.6-10.0) 06/14/19 04:38 RBC 3.26 X10^6/uL (3.5-5.4) L 06/14/19 04:38 Hgb 10.6 g/dL (12.0-16.0) L 06/14/19 04:38 Hct 31.2 % (36.0-47.0) L 06/14/19 04:38 MCV 95.6 fL (80.0-100.0) 06/14/19 04:38 MCH 32.4 pg (27.0-34.0) 06/14/19 04:38 MCHC 33.9 g/dL (33.0-35.0) 06/14/19 04:38 RDW 12.7 % (11.6-16.5) 06/14/19 04:38 Plt Count 141 X10^3/uL (150.0-450.0) L 06/14/19 04:38 MPV 8.7 fL (7.4-11.0) 06/14/19 04:38 Neut % (Auto) 62.6 % (42.0-75.0) 06/14/19 04:38 Lymph % (Auto) 21.0 % (21.0-51.0) 06/14/19 04:38 [place] % (Auto) 10.0 % (0.0-13.0) 06/14/19 04:38 Eos % (Auto) 5.9 % (0.9-2.9) H 06/14/19 04:38 Baso % (Auto) 0.5 % (0.2-1.0) 06/14/19 04:38 Neut # (Auto) 2.8 x10^3/uL (2.2-4.8) 06/14/19 04:38 Lymph # (Auto) 0.9 X10^3/uL (1.3-2.9) L 06/14/19 04:38 [place] # (Auto) 0.5 x10^3/uL (0.3-0.8) 06/14/19 04:38 Eos # (Auto) 0.3 x10^3/uL (0.0-0.2) H 06/14/19 04:38 Baso # (Auto) 0.0 X10^3/uL (0.0-0.1) 06/14/19 04:38 Absolute Nucleated RBC 0.0 /100WBC 06/14/19 04:38 Sodium 137 mmol/L (136-145) 06/14/19 04:38 Corrected Sodium 139 mmol/L (136-145) 06/14/19 04:38 Potassium 3.9 mmol/L (3.5-5.1) 06/14/19 04:38 Chloride 102 mmol/L (98-107) 06/14/19 04:38 Carbon Dioxide 30.5 mmol/L (21-32) 06/14/19 04:38 BUN 21 mg/dL (7-18) H 06/14/19 04:38 Creatinine 1.28 mg/dL (0.55-1.02) H 06/14/19 04:38 Est GFR (MDRD) Af Amer 50 (>60) L 06/14/19 04:38 Est GFR (MDRD) Non-Af 42 (>60) L 06/14/19 04:38 Glucose 177 mg/dL (65-99) H 06/14/19 04:38 Calcium 8.2 mg/dL (8.5-10.1) L 06/14/19 04:38 Corrected Calcium 9.3 mg/dL (8.5-10.1) 06/14/19 04:38 Magnesium 2.0 mg/dL (1.7-2.9) 06/14/19 04:38 Total Bilirubin 0.20 mg/dL (0.2-1.0) 06/14/19 04:38 AST 20 Units/L (15-37) 06/14/19 04:38 ALT 26 Units/L (12-78) 06/14/19 04:38 Alkaline Phosphatase 63 Units/L (46-116) 06/14/19 04:38 Total Protein 5.8 g/dL (6.4-8.2) L 06/14/19 04:38 Albumin 2.6 g/dL (3.4-5.0) L 06/14/19 04:38 Globulin 3.2 g/dL (2.5-4.5) 06/14/19 04:38 Albumin/Globulin Ratio 0.8 Ratio (1.1-2.1) L 06/14/19 04:38 - Plan (1) Bronchopneumonia Status: Acute Plan: IV LEVAQUIN, RESPIRATORY TREATMENTS, SUPPLEMENTAL OXYGEN, CONTINUE TO MONITOR (2) Hypertension Status: Chronic Qualifiers: Hypertension type: essential hypertension Qualified Code(s): I10 - Essential (primary) hypertension (3) GERD (gastroesophageal reflux disease) Status: Chronic Qualifiers: Esophagitis presence: esophagitis presence not specified (4) Hyperlipidemia Status: Chronic Qualifiers: Hyperlipidemia type: mixed hyperlipidemia (5) AZAR (generalized anxiety disorder) Status: Chronic (6) Coronary atherosclerosis Status: Chronic Qualifiers: Coronary Disease-Associated Artery/Lesion type: [place] artery [place] vs. transplanted heart: [place] heart Associated angina: angina presence unspecified Qualified Code(s): I25.10 - Atherosclerotic heart disease of [place] coronary artery without angina pectoris (7) Type II diabetes mellitus, uncontrolled Status: Chronic Qualifiers: Glycemic state: with hyperglycemia Qualified Code(s): E11.65 - Type 2 diabetes mellitus with hyperglycemia
[2019-06-14] MEDS: LEVAQUIN PREMIX IV 500 MG 500 MG/100 ML BAG IV SCH (08:49)
[2019-06-14] MEDS: ZANTAC PO SCH ×2 (08:51→21:27)
[2019-06-14] MEDS: COLACE CAP 100 MG PO SCH ×2 (08:51→21:29)
[2019-06-14] MEDS: VSL#3 PO SCH (08:51)
[2019-06-14] MEDS: COZAAR PO SCH ×2 (08:52→21:29)
[2019-06-14] MEDS: PROTONIX TAB 40 MG PO SCH (08:52)
[2019-06-14] MEDS: COREG TAB 25 MG PO SCH ×2 (08:52→21:27)
[2019-06-14] MEDS: HEMOCYTE-PLUS PO SCH (08:52)
[2019-06-14] MEDS: BENADRYL CAP/TAB 25 MG PO SCH ×2 (08:53→21:27)
[2019-06-14] MEDS: NORVASC TAB 5 MG PO SCH (08:54)
[2019-06-14] MEDS: HIPREX PO SCH ×2 (08:59→21:30)
[2019-06-14] MEDS: TUSSIONEX PENNKINETIC SUSP PO PRN ×2 (09:00→21:33)
[2019-06-14] MEDS: FLONASE NASAL SPRAY ENOSTRIL SCH (09:02)
[2019-06-14] MEDS: MIRALAX POWDER (1 DOSE 17 G) PO SCH (09:09)
[2019-06-14] MEDS: ROBITUSSIN DM PO SCH ×4 (09:10→21:33)
[2019-06-14] MEDS: LOVENOX INJ 30 MG SYR SC SCH (10:34)
[2019-06-14] MEDS: MUCINEX DM PO SCH ×2 (12:34→21:31)
[2019-06-14] MEDS: NS 1/2 1000 ML IV 1,000 ML IV SCH (12:34)
[2019-06-14] MEDS: ALBUMIN HUMAN 25%- 100 ML 100 ML IV SCH (12:34)
[2019-06-14] MEDS: PROCALAMINE 3 % 1,000 ML IV SCH (12:36)
[2019-06-14] MEDS: HumuLIN R SUBCUT PRN (12:37)
[2019-06-14] MEDS ORDERED: NS 1/2 1000 ML IV 1,000 ML ONE (14:39)
[2019-06-14] MEDS: SNACK - Diabetic Appropriate PO SCH (20:15)
[2019-06-14] MEDS: KLONOPIN TAB 0.5 MG PO SCH (21:27)
[2019-06-14] MEDS: PRAVACHOL PO SCH (21:29)
[2019-06-14] MEDS: LANTUS SC SCH (21:30)
[2019-06-14] MEDS: OXYBUTYNIN CHLORIDE ER PO SCH (21:32)
[2019-06-14] MEDS: MILK OF MAGNESIA PO PRN (21:33)
[2019-06-15] MEDS: DUONEB 0.5 MG/3 MG NEB SCH ×6 (01:02→20:37)
[2019-06-15 05:21] LABS: BASOPHILS % (AUTO) 0.3 % (0.2-1.0); EOSINOPHILS # (AUTO) 0.1 x10^3/uL (0.0-0.2); EOSINOPHILS % (AUTO) 3.1 % (0.9-2.9); HEMATOCRIT 28.7 % (36.0-47.0); HEMOGLOBIN 9.9 g/dL (12.0-16.0); LYMPHOCYTES # (AUTO) 0.9 X10^3/uL (1.3-2.9); LYMPHOCYTES % (AUTO) 19.6 % (21.0-51.0); MEAN CORPUSCULAR HEMOGLOBIN 32.7 pg (27.0-34.0); MEAN CORPUSCULAR HGB CONC 34.3 g/dL (33.0-35.0); MEAN CORPUSCULAR VOLUME 95.3 fL (80.0-100.0); MEAN PLATELET VOLUME 8.4 fL (7.4-11.0); MONOCYTES # (AUTO) 0.4 x10^3/uL (0.3-0.8); MONOCYTES % (AUTO) 9.6 % (0.0-13.0); NEUTROPHILS # (AUTO) 3.1 x10^3/uL (2.2-4.8); NEUTROPHILS % (AUTO) 67.4 % (42.0-75.0); PLATELET COUNT 128 X10^3/uL (150.0-450.0); RED BLOOD COUNT 3.02 X10^6/uL (3.5-5.4); RED CELL DISTRIBUTION WIDTH 12.8 % (11.6-16.5); WHITE BLOOD COUNT 4.7 X10^3/uL (3.6-10.0)
[2019-06-15 05:31] LABS: ALBUMIN 2.8 g/dL (3.4-5.0); CALCIUM 8.3 mg/dL (8.5-10.1); CARBON DIOXIDE 29.1 mmol/L (21-32); COR CA(FOR HYPOALB) 9.3 mg/dL (8.5-10.1); CREATININE 1.23 mg/dL (0.55-1.02); TOTAL PROTEIN 5.8 g/dL (6.4-8.2)
[2019-06-15] MEDS: NS 1/2 1000 ML IV 1,000 ML IV SCH ×2 (05:48→16:16)
[2019-06-15] MEDS: APRESOLINE TAB 25 MG PO SCH ×3 (05:52→21:23)
[2019-06-15] MEDS ORDERED: NS 1/2 1000 ML IV 1,000 ML ONE (06:45)
[2019-06-15] MEDS: COREG TAB 25 MG PO SCH ×2 (08:36→21:24)
[2019-06-15] MEDS: HEMOCYTE-PLUS PO SCH (08:36)
[2019-06-15] MEDS: COLACE CAP 100 MG PO SCH ×2 (08:36→21:22)
[2019-06-15] MEDS: PROTONIX TAB 40 MG PO SCH (08:36)
[2019-06-15] MEDS: BENADRYL CAP/TAB 25 MG PO SCH ×2 (08:36→21:23)
[2019-06-15] MEDS: COZAAR PO SCH ×2 (08:36→21:24)
[2019-06-15] MEDS: ZANTAC PO SCH ×2 (08:36→21:23)
[2019-06-15] MEDS: NORVASC TAB 5 MG PO SCH (08:37)
[2019-06-15] MEDS: VSL#3 PO SCH (08:38)
[2019-06-15] MEDS: HIPREX PO SCH ×2 (08:38→21:24)
[2019-06-15] MEDS: MUCINEX DM PO SCH ×2 (08:38→21:28)
[2019-06-15] MEDS: ALBUMIN HUMAN 25%- 100 ML 100 ML IV SCH (08:39)
[2019-06-15] MEDS: MIRALAX POWDER (1 DOSE 17 G) PO SCH (08:39)
[2019-06-15] MEDS: LEVAQUIN PREMIX IV 500 MG 500 MG/100 ML BAG IV SCH (08:39)
[2019-06-15] MEDS: FLONASE NASAL SPRAY ENOSTRIL SCH (08:40)
[2019-06-15] MEDS: LOVENOX INJ 30 MG SYR SC SCH (08:41)
[2019-06-15] MEDS: ROBITUSSIN DM PO SCH ×4 (08:41→21:29)
[2019-06-15] MEDS: TUSSIONEX PENNKINETIC SUSP PO PRN ×2 (08:49→21:25)
[2019-06-15] MEDS: PULMICORT NEB TX 0.5 MG NEB SCH ×2 (09:01→20:37)
[2019-06-15] MEDS: MUCOMYST 20% 200 MG/ML NEB SCH ×3 (09:01→16:43)
[2019-06-15] MEDS ORDERED: LASIX IVP ONE (09:48)
[2019-06-15] MEDS: SOLU-Medrol 40 MG VIAL IVP SCH ×3 (10:25→21:25)
[2019-06-15] MEDS: ULTRAM PO PRN (10:30)
[2019-06-15] MEDS: FORTAZ or TAZICEF VIAL INJ 1 G in NS 100 ML IV + SPIKE MINIBAG* 100 ML IV SCH ×2 (11:32→21:25)
[2019-06-15] MEDS: HumuLIN R SUBCUT PRN ×3 (13:26→21:30)
[2019-06-15] MEDS: PROCALAMINE 3 % 1,000 ML IV SCH (13:38)
--- NOTE | 2019-06-15 15:05 | PCM.PROG ---
Progress Note - Progress Note for Day of Date of Exam: 06/14/19 - Subjective Subjective: WAS ADMITTED FOR BRONCHOPNEUMONIA. TODAY, SHE IS ALERT AND ORIENTED, LYING IN BED ON MORNING ROUNDS. SHE CONTINUES WITH COMPLAINTS OF SHORTNESS OF BREATH AND A PRODUCTIVE COUGH. ON EXAMINATION, HEART IS REGULAR IN RATE AND RHYTHM. BILATERAL LUNGS ARE NOTED WITH SCATTERED WHEEZING AND RHONCHI. ABDOMEN IS ROUND, SOFT, AND NON-TENDER WITH NORMAL BOWEL SOUNDS NOTED IN ALL QUADRANTS. HER VITALS THIS MORNING ARE: 99.0-80-18-94%-137/60. LABS WERE OBTAINED. ABNORMAL LAB VALUES INCLUDE THE FOLLOWING: RBC 3.26, HGB 10.6, HCT 31.2, PLT COUNT 141, BUN 21, CREATININE 1.28, GLUCOSE 177, CALCIUM 8.2, TOTAL PROTEIN 5.8, ALBUMIN 2.6. BLOOD AND SPUTUM CULTURES ARE PENDING. A CHEST XRAY WAS OBTAINED TODAY AND REVEALED: MILD CARDIOMEGALY WITHOUT CHF. LUNGS CLEAR. SHE IS CURRENTLY RECEIVING IV LEVAQUIN, RESPIRATORY TREATMENTS, SUPPLEMENTAL OXYGEN, AND HOME MEDICATIONS WERE RESUMED. TODAY, WE WILL START ALBUMIN 25% IV DAILY, PROCAL AT 40ML/HR, AND MUCINEX DM. OTHERWISE, WE WILL CONTINUE WITH CURRENT PLAN OF CARE TODAY. WE PLAN TO FOLLOW UP WITH AM LABS AND CONTINUE TO MONITOR. - Past Medical Family Social History Past Med/Fam/Surg Hx: No changes since H&P Allergies: Allergies lanolin [From Artificial Tears] Allergy (Verified 06/13/19 13:33) mineral oil [From Artificial Tears] Allergy (Verified 06/13/19 13:33) Penicillins Allergy (Verified 04/04/18 19:58) petrolatum,white [From Artificial Tears] Allergy (Verified 06/13/19 13:33) zolpidem Allergy (Verified 04/04/18 19:58) diazepam Adverse Reaction (Verified 04/04/18 19:58) CONFUSION - Review of Systems ROS: No change since H&P - Vital Signs and I&O's Vital Signs: Temperature 99.1 F Pulse Rate [Left] 68 Pulse Rate 78 Respiratory Rate 18 Blood Pressure [Right Arm] 137/60 Blood Pressure [Left Femoral 129/56 Artery] Blood Pressure [Left Arm] 124/61 Blood Pressure 115/53 O2 Sat by Pulse Oximetry 96 Intake and Output: Intake & Output 06/13/19 06/14/19 06/15/19 06/16/19 11:59 11:59 11:59 11:59 Intake Total 1750 / 1750 3425 / 3425 1905 / 1905 600 / 600 Balance 1750 / 1750 3425 / 3425 1905 / 1905 600 / 600 - Physical Exam Oriented: Normal Eyes: Normal Ear: Normal Nose: Normal Throat: Normal Respiratory: Generalized, Wheezes, Rhonchi Cardiovascular: Normal. negative: S3, S4, Murmur : Normal Auscultation: Bowel Sounds: Normal Palpation: Normal Tenderness: Normal Skin: Normal Musculoskeletal: Normal Psychiatric: Normal Mood Description: Calm Affect: Normal Speech Pattern: Clear, Appropriate - Laboratory and Diagnostics Result Diagrams: 06/15/19 04:39 06/15/19 04:39 Labs: 06/12/19 18:29 Blood Blood Culture - Preliminary 06/12/19 18:22 Blood Blood Culture - Preliminary 06/12/19 18:30 Sputum - Expectorated Sputum Sputum Culture - Final 06/12/19 18:30 Sputum - Expectorated Sputum - Final Laboratory WBC 4.7 X10^3/uL (3.6-10.0) 06/15/19 04:39 RBC 3.02 X10^6/uL (3.5-5.4) L 06/15/19 04:39 Hgb 9.9 g/dL (12.0-16.0) L 06/15/19 04:39 Hct 28.7 % (36.0-47.0) L 06/15/19 04:39 MCV 95.3 fL (80.0-100.0) 06/15/19 04:39 MCH 32.7 pg (27.0-34.0) 06/15/19 04:39 MCHC 34.3 g/dL (33.0-35.0) 06/15/19 04:39 RDW 12.8 % (11.6-16.5) 06/15/19 04:39 Plt Count 128 X10^3/uL (150.0-450.0) L 06/15/19 04:39 MPV 8.4 fL (7.4-11.0) 06/15/19 04:39 Neut % (Auto) 67.4 % (42.0-75.0) 06/15/19 04:39 Lymph % (Auto) 19.6 % (21.0-51.0) L 06/15/19 04:39 [place] % (Auto) 9.6 % (0.0-13.0) 06/15/19 04:39 Eos % (Auto) 3.1 % (0.9-2.9) H 06/15/19 04:39 Baso % (Auto) 0.3 % (0.2-1.0) 06/15/19 04:39 Neut # (Auto) 3.1 x10^3/uL (2.2-4.8) 06/15/19 04:39 Lymph # (Auto) 0.9 X10^3/uL (1.3-2.9) L 06/15/19 04:39 [place] # (Auto) 0.4 x10^3/uL (0.3-0.8) 06/15/19 04:39 Eos # (Auto) 0.1 x10^3/uL (0.0-0.2) 06/15/19 04:39 Baso # (Auto) 0.0 X10^3/uL (0.0-0.1) 06/15/19 04:39 Absolute Nucleated RBC 0.1 /100WBC 06/15/19 04:39 Sodium 137 mmol/L (136-145) 06/15/19 04:39 Corrected Sodium 139 mmol/L (136-145) 06/15/19 04:39 Potassium 4.2 mmol/L (3.5-5.1) 06/15/19 04:39 Chloride 101 mmol/L (98-107) 06/15/19 04:39 Carbon Dioxide 29.1 mmol/L (21-32) 06/15/19 04:39 BUN 21 mg/dL (7-18) H 06/15/19 04:39 Creatinine 1.23 mg/dL (0.55-1.02) H 06/15/19 04:39 Est GFR (MDRD) Af Amer 53 (>60) L 06/15/19 04:39 Est GFR (MDRD) Non-Af 44 (>60) L 06/15/19 04:39 Glucose 193 mg/dL (65-99) H 06/15/19 04:39 Calcium 8.3 mg/dL (8.5-10.1) L 06/15/19 04:39 Corrected Calcium 9.3 mg/dL (8.5-10.1) 06/15/19 04:39 Magnesium 2.0 mg/dL (1.7-2.9) 06/14/19 04:38 Total Bilirubin 0.30 mg/dL (0.2-1.0) 06/15/19 04:39 AST 15 Units/L (15-37) 06/15/19 04:39 ALT 19 Units/L (12-78) 06/15/19 04:39 Alkaline Phosphatase 57 Units/L (46-116) 06/15/19 04:39 Total Protein 5.8 g/dL (6.4-8.2) L 06/15/19 04:39 Albumin 2.8 g/dL (3.4-5.0) L 06/15/19 04:39 Globulin 3.0 g/dL (2.5-4.5) 06/15/19 04:39 Albumin/Globulin Ratio 0.9 Ratio (1.1-2.1) L 06/15/19 04:39 - Plan (1) Bronchopneumonia Status: Acute Plan: IV LEVAQUIN, RESPIRATORY TREATMENTS, SUPPLEMENTAL OXYGEN, CONTINUE TO MONITOR (2) Hypertension Status: Chronic Qualifiers: Hypertension type: essential hypertension Qualified Code(s): I10 - Essential (primary) hypertension (3) GERD (gastroesophageal reflux disease) Status: Chronic Qualifiers: Esophagitis presence: esophagitis presence not specified (4) Hyperlipidemia Status: Chronic Qualifiers: Hyperlipidemia type: mixed hyperlipidemia (5) AZAR (generalized anxiety disorder) Status: Chronic (6) Coronary atherosclerosis Status: Chronic Qualifiers: Coronary Disease-Associated Artery/Lesion type: [place] artery [place] vs. transplanted heart: [place] heart Associated angina: angina presence unspecified Qualified Code(s): I25.10 - Atherosclerotic heart disease of [place] coronary artery without angina pectoris (7) Type II diabetes mellitus, uncontrolled Status: Chronic Qualifiers: Glycemic state: with hyperglycemia Qualified Code(s): E11.65 - Type 2 diabetes mellitus with hyperglycemia
[2019-06-15] MEDS: SNACK - Diabetic Appropriate PO SCH (20:25)
[2019-06-15] MEDS: PRAVACHOL PO SCH (21:22)
[2019-06-15] MEDS: MILK OF MAGNESIA PO PRN (21:25)
[2019-06-15] MEDS: KLONOPIN TAB 0.5 MG PO SCH (21:26)
[2019-06-15] MEDS: LANTUS SC SCH (21:27)
[2019-06-15] MEDS: OXYBUTYNIN CHLORIDE ER PO SCH (21:29)
[2019-06-16] MEDS: DUONEB 0.5 MG/3 MG NEB SCH ×6 (01:21→20:22)
[2019-06-16 05:12] LABS: BASOPHILS % (AUTO) 0.1 % (0.2-1.0); HEMATOCRIT 30.4 % (36.0-47.0); HEMOGLOBIN 10.3 g/dL (12.0-16.0); LYMPHOCYTES # (AUTO) 0.6 X10^3/uL (1.3-2.9); LYMPHOCYTES % (AUTO) 12.8 % (21.0-51.0); MEAN CORPUSCULAR HEMOGLOBIN 32.4 pg (27.0-34.0); MEAN CORPUSCULAR HGB CONC 33.9 g/dL (33.0-35.0); MEAN CORPUSCULAR VOLUME 95.7 fL (80.0-100.0); MEAN PLATELET VOLUME 8.5 fL (7.4-11.0); MONOCYTES # (AUTO) 0.1 x10^3/uL (0.3-0.8); MONOCYTES % (AUTO) 1.8 % (0.0-13.0); NEUTROPHILS # (AUTO) 4.1 x10^3/uL (2.2-4.8); NEUTROPHILS % (AUTO) 85.3 % (42.0-75.0); PLATELET COUNT 130 X10^3/uL (150.0-450.0); RED BLOOD COUNT 3.18 X10^6/uL (3.5-5.4); RED CELL DISTRIBUTION WIDTH 12.7 % (11.6-16.5); WHITE BLOOD COUNT 4.9 X10^3/uL (3.6-10.0)
[2019-06-16 05:20] LABS: ALBUMIN 3.2 g/dL (3.4-5.0); CARBON DIOXIDE 27.4 mmol/L (21-32); COR CA(FOR HYPOALB) 9.6 mg/dL (8.5-10.1); CREATININE 1.46 mg/dL (0.55-1.02); TOTAL PROTEIN 6.5 g/dL (6.4-8.2)
[2019-06-16] MEDS: SOLU-Medrol 40 MG VIAL IVP SCH ×3 (05:52→21:22)
[2019-06-16] MEDS: APRESOLINE TAB 25 MG PO SCH ×3 (05:52→21:21)
[2019-06-16] MEDS: HumuLIN R SUBCUT PRN ×4 (05:57→21:26)
[2019-06-16] MEDS: PULMICORT NEB TX 0.5 MG NEB SCH ×2 (08:37→20:22)
[2019-06-16] MEDS: LOVENOX INJ 30 MG SYR SC SCH (08:38)
[2019-06-16] MEDS: FORTAZ or TAZICEF VIAL INJ 1 G in NS 100 ML IV + SPIKE MINIBAG* 100 ML IV SCH ×2 (08:39→21:22)
[2019-06-16] MEDS: MIRALAX POWDER (1 DOSE 17 G) PO SCH ×2 (08:40→10:46)
[2019-06-16] MEDS: ROBITUSSIN DM PO SCH ×5 (08:40→21:25)
[2019-06-16] MEDS: BENADRYL CAP/TAB 25 MG PO SCH ×2 (08:40→21:21)
[2019-06-16] MEDS: HIPREX PO SCH ×2 (08:40→21:20)
[2019-06-16] MEDS: MILK OF MAGNESIA PO PRN ×2 (08:40→09:00)
[2019-06-16] MEDS: VSL#3 PO SCH (08:40)
[2019-06-16] MEDS: COREG TAB 25 MG PO SCH ×2 (08:41→21:21)
[2019-06-16] MEDS: PROTONIX TAB 40 MG PO SCH (08:41)
[2019-06-16] MEDS: ZANTAC PO SCH ×2 (08:41→21:21)
[2019-06-16] MEDS: COZAAR PO SCH ×2 (08:41→21:20)
[2019-06-16] MEDS: MUCINEX DM PO SCH ×2 (08:42→21:24)
[2019-06-16] MEDS: COLACE CAP 100 MG PO SCH ×2 (08:42→21:21)
[2019-06-16] MEDS: FLONASE NASAL SPRAY ENOSTRIL SCH (08:42)
[2019-06-16] MEDS: NORVASC TAB 5 MG PO SCH (08:42)
[2019-06-16] MEDS: HEMOCYTE-PLUS PO SCH (08:42)
--- NOTE | 2019-06-16 08:57 | PCM.PROG ---
Progress Note - Progress Note for Day of Date of Exam: 06/15/19 - Subjective Subjective: WAS ADMITTED FOR BRONCHOPNEUMONIA. TODAY, SHE IS ALERT AND ORIENTED, LYING IN BED ON MORNING ROUNDS. SHE CONTINUES WITH COMPLAINTS OF SHORTNESS OF BREATH AND A PRODUCTIVE COUGH. ON EXAMINATION, HEART IS REGULAR IN RATE AND RHYTHM. BILATERAL LUNGS ARE NOTED WITH SCATTERED WHEEZING AND RHONCHI. ABDOMEN IS ROUND, SOFT, AND NON-TENDER WITH NORMAL BOWEL SOUNDS NOTED IN ALL QUADRANTS. HER VITALS THIS MORNING ARE: 100.2-73-18-96%-146/65. LABS WERE OBTAINED. ABNORMAL LAB VALUES INCLUDE THE FOLLOWING: RBC 3.02, HGB 9.9, HCT 28.7, PTL COUNT 128, BUN 21, CREATININE 1.23, GLUCOSE 193, CALCIUM 8.3, TOTAL PROTEIN 5.8, ALBUMIN 2.8. BLOOD AND SPUTUM CULTURES ARE PENDING. A CHEST XRAY WAS OBTAINED TODAY AND REVEALED: CONTINUED CARDIOMEGALY WITHOUT CHF. NO ACUTE INFILTRATES. SHE IS CURRENTLY RECEIVING IV LEVAQUIN, IV NUTRITION, RESPIRATORY TREATMENTS, SUPPLEMENTAL OXYGEN, AND HOME MEDICATIONS WERE RESUMED. TODAY, WE WILL ADD SOLU-MEDROL 40MG IV Q12H. OTHERWISE, WE WILL CONTINUE WITH CURRENT PLAN OF CARE TODAY. WE PLAN TO FOLLOW UP WITH AM LABS AND CONTINUE TO MONITOR. - Past Medical Family Social History Past Med/Fam/Surg Hx: No changes since H&P Allergies: Allergies lanolin [From Artificial Tears] Allergy (Verified 06/13/19 13:33) mineral oil [From Artificial Tears] Allergy (Verified 06/13/19 13:33) Penicillins Allergy (Verified 04/04/18 19:58) petrolatum,white [From Artificial Tears] Allergy (Verified 06/13/19 13:33) zolpidem Allergy (Verified 04/04/18 19:58) diazepam Adverse Reaction (Verified 04/04/18 19:58) CONFUSION - Review of Systems ROS: No change since H&P - Vital Signs and I&O's Vital Signs: Temperature 98.3 F Pulse Rate [Left] 73 Pulse Rate 72 Respiratory Rate 18 Blood Pressure [Right Arm] 137/60 Blood Pressure [Left Femoral 129/56 Artery] Blood Pressure [Left Arm] 149/68 Blood Pressure 115/53 O2 Sat by Pulse Oximetry 96 Intake and Output: Intake & Output 07/06/14/19 06/15/19 06/16/19 11:59 11:59 11:59 11:59 Intake Total 1750 / 1750 3425 / 3425 1904 / 1904 Balance 1750 / 1750 3425 / 3425 1904 / 1904 - Physical Exam Oriented: Normal Eyes: Normal Ear: Normal Nose: Normal Throat: Normal Respiratory: Generalized, Wheezes, Rhonchi Cardiovascular: Normal. negative: S3, S4, Murmur : Normal Auscultation: Bowel Sounds: Normal Tenderness: Normal Skin: Normal Musculoskeletal: Normal Psychiatric: Normal Mood Description: Calm Affect: Normal Speech Pattern: Clear, Appropriate - Laboratory and Diagnostics Result Diagrams: 06/16/19 04:51 06/16/19 04:51 Labs: 06/12/19 18:29 Blood Blood Culture - Preliminary 06/12/19 18:22 Blood Blood Culture - Preliminary 06/12/19 18:30 Sputum - Expectorated Sputum Sputum Culture - Final 06/12/19 18:30 Sputum - Expectorated Sputum - Final Laboratory WBC 4.9 X10^3/uL (3.6-10.0) 06/16/19 04:51 RBC 3.18 X10^6/uL (3.5-5.4) L 06/16/19 04:51 Hgb 10.3 g/dL (12.0-16.0) L 06/16/19 04:51 Hct 30.4 % (36.0-47.0) L 06/16/19 04:51 MCV 95.7 fL (80.0-100.0) 06/16/19 04:51 MCH 32.4 pg (27.0-34.0) 06/16/19 04:51 MCHC 33.9 g/dL (33.0-35.0) 06/16/19 04:51 RDW 12.7 % (11.6-16.5) 06/16/19 04:51 Plt Count 130 X10^3/uL (150.0-450.0) L 06/16/19 04:51 MPV 8.5 fL (7.4-11.0) 06/16/19 04:51 Neut % (Auto) 85.3 % (42.0-75.0) H 06/16/19 04:51 Lymph % (Auto) 12.8 % (21.0-51.0) L 06/16/19 04:51 [place] % (Auto) 1.8 % (0.0-13.0) 06/16/19 04:51 Eos % (Auto) 0.0 % (0.9-2.9) L 06/16/19 04:51 Baso % (Auto) 0.1 % (0.2-1.0) L 06/16/19 04:51 Neut # (Auto) 4.1 x10^3/uL (2.2-4.8) 06/16/19 04:51 Lymph # (Auto) 0.6 X10^3/uL (1.3-2.9) L 06/16/19 04:51 [place] # (Auto) 0.1 x10^3/uL (0.3-0.8) L 06/16/19 04:51 Eos # (Auto) 0.0 x10^3/uL (0.0-0.2) 06/16/19 04:51 Baso # (Auto) 0.0 X10^3/uL (0.0-0.1) 06/16/19 04:51 Absolute Nucleated RBC 0.1 /100WBC 06/16/19 04:51 Sodium 136 mmol/L (136-145) 06/16/19 04:51 Corrected Sodium 143 mmol/L (136-145) 06/16/19 04:51 Potassium 4.4 mmol/L (3.5-5.1) 06/16/19 04:51 Chloride 100 mmol/L (98-107) 06/16/19 04:51 Carbon Dioxide 27.4 mmol/L (21-32) 06/16/19 04:51 BUN 34 mg/dL (7-18) H 06/16/19 04:51 Creatinine 1.46 mg/dL (0.55-1.02) H 06/16/19 04:51 Est GFR (MDRD) Af Amer 43 (>60) L 06/16/19 04:51 Est GFR (MDRD) Non-Af 36 (>60) L 06/16/19 04:51 Glucose 376 mg/dL (65-99) H 06/16/19 04:51 Calcium 9.0 mg/dL (8.5-10.1) 06/16/19 04:51 Corrected Calcium 9.6 mg/dL (8.5-10.1) 06/16/19 04:51 Magnesium 2.0 mg/dL (1.7-2.9) 06/14/19 04:38 Total Bilirubin 0.30 mg/dL (0.2-1.0) 06/16/19 04:51 AST 15 Units/L (15-37) 06/16/19 04:51 ALT 19 Units/L (12-78) 06/16/19 04:51 Alkaline Phosphatase 60 Units/L (46-116) 06/16/19 04:51 Total Protein 6.5 g/dL (6.4-8.2) 06/16/19 04:51 Albumin 3.2 g/dL (3.4-5.0) L 06/16/19 04:51 Globulin 3.3 g/dL (2.5-4.5) 06/16/19 04:51 Albumin/Globulin Ratio 1.0 Ratio (1.1-2.1) L 06/16/19 04:51 - Plan (1) Bronchopneumonia Status: Acute Plan: IV LEVAQUIN, SOLU-MEDROL, RESPIRATORY TREATMENTS, SUPPLEMENTAL OXYGEN, CONTINUE TO MONITOR (2) Hypertension Status: Chronic Qualifiers: Hypertension type: essential hypertension Qualified Code(s): I10 - Essential (primary) hypertension (3) GERD (gastroesophageal reflux disease) Status: Chronic Qualifiers: Esophagitis presence: esophagitis presence not specified (4) Hyperlipidemia Status: Chronic Qualifiers: Hyperlipidemia type: mixed hyperlipidemia (5) AZAR (generalized anxiety disorder) Status: Chronic (6) Coronary atherosclerosis Status: Chronic Qualifiers: Coronary Disease-Associated Artery/Lesion type: [place] artery [place] vs. transplanted heart: [place] heart Associated angina: angina presence unspecified Qualified Code(s): I25.10 - Atherosclerotic heart disease of [place] coronary artery without angina pectoris (7) Type II diabetes mellitus, uncontrolled Status: Chronic Qualifiers: Glycemic state: with hyperglycemia Qualified Code(s): E11.65 - Type 2 diabetes mellitus with hyperglycemia
[2019-06-16] MEDS: LEVAQUIN PREMIX IV 500 MG 500 MG/100 ML BAG IV SCH (10:07)
[2019-06-16] MEDS ORDERED: TUSSIONEX PENNKINETIC SUSP ONE (11:00)
[2019-06-16] MEDS: TUSSIONEX PENNKINETIC SUSP PO SCH ×2 (11:03→22:08)
[2019-06-16] MEDS: ALBUMIN HUMAN 25%- 100 ML 100 ML IV SCH (11:03)
[2019-06-16] MEDS: MILK OF MAGNESIA PO SCH ×5 (11:42→21:32)
[2019-06-16] MEDS: PROCALAMINE 3 % 1,000 ML IV SCH (13:24)
[2019-06-16] MEDS ORDERED: LASIX IVP ONE (14:41)
[2019-06-16] MEDS ORDERED: NS 1/2 1000 ML IV 1,000 ML ONE (16:54)
[2019-06-16] MEDS: NS 1/2 1000 ML IV 1,000 ML IV SCH ×3 (16:56→21:23)
--- NOTE | 2019-06-16 19:46 | PCM.PROG ---
Progress Note - Progress Note for Day of Date of Exam: 06/16/19 - Subjective Subjective: WAS ADMITTED FOR BRONCHOPNEUMONIA. TODAY, SHE IS ALERT AND ORIENTED, LYING IN BED ON MORNING ROUNDS. SHE CONTINUES WITH COMPLAINTS OF SHORTNESS OF BREATH AND COUGH. ON EXAMINATION, HEART IS REGULAR IN RATE AND RHYTHM. BILATERAL LUNGS ARE NOTED WITH SCATTERED WHEEZING AND RHONCHI. ABDOMEN IS ROUND, SOFT, AND NON-TENDER WITH NORMAL BOWEL SOUNDS NOTED IN ALL QUADRANTS. HER VITALS THIS MORNING ARE: 98.8-75-20-95%-155/71. LABS WERE OBTAINED. ABNORMAL LAB VALUES INCLUDE THE FOLLOWING: RBC 3.18, HGB 10.3, HCT 30.4, PLT COUNT 130, BUN 34, CREATININE 1.46, GLCUOSE 376, ALBUMIN 3.2. BLOOD AND SPUTUM CULTURES ARE PENDING. A CHEST XRAY WAS OBTAINED TODAY AND REVEALED: CARDIOMEGALY WITH INCREASING PULMONARY VASCULATURE CONGESTION. SHE IS CURRENTLY RECEIVING IV LEVAQUIN, IV NUTRITION, SOLU-MEDROL, RESPIRATORY TREATMENTS, SUPPLEMENTAL OXYGEN, AND HOME MEDICATIONS WERE RESUMED. TODAY, WE WILL MAKE HER TUSSIONEX SCHEDULED AND ADMINISTER LASIX 20MG IV X 1 DOSE. OTHERWISE, WE WILL CONTINUE WITH CURRENT PLAN OF CARE TODAY. WE PLAN TO FOLLOW UP WITH AM LABS AND CONTINUE TO MONITOR. - Past Medical Family Social History Past Med/Fam/Surg Hx: No changes since H&P Allergies: Allergies lanolin [From Artificial Tears] Allergy (Verified 06/13/19 13:33) mineral oil [From Artificial Tears] Allergy (Verified 06/13/19 13:33) Penicillins Allergy (Verified 04/04/18 19:58) petrolatum,white [From Artificial Tears] Allergy (Verified 06/13/19 13:33) zolpidem Allergy (Verified 04/04/18 19:58) diazepam Adverse Reaction (Verified 04/04/18 19:58) CONFUSION - Review of Systems ROS: No change since H&P - Vital Signs and I&O's Vital Signs: Temperature 99.1 F Pulse Rate [Left] 64 Pulse Rate 70 Respiratory Rate 20 Blood Pressure [Right Arm] 137/60 Blood Pressure [Left Femoral 129/56 Artery] Blood Pressure [Left Arm] 130/58 Blood Pressure 115/53 O2 Sat by Pulse Oximetry 95 Intake and Output: Intake & Output 07/31/19 06/15/19 06/16/19 06/17/19 11:59 11:59 11:59 11:59 Intake Total 3425 / 3425 1905 / 1905 2310 / 2310 1380 / 1380 Balance 3425 / 3425 1905 / 1905 2310 / 2310 1380 / 1380 - Physical Exam Oriented: Normal Eyes: Normal Ear: Normal Nose: Normal Throat: Normal Respiratory: Generalized, Wheezes, Rhonchi Cardiovascular: Normal. negative: S3, S4, Murmur : Normal Auscultation: Bowel Sounds: Normal Palpation: Normal Tenderness: Normal Skin: Normal Musculoskeletal: Normal Psychiatric: Normal Mood Description: Calm Affect: Normal Speech Pattern: Clear, Appropriate - Laboratory and Diagnostics Result Diagrams: 06/16/19 04:51 06/16/19 04:51 Labs: 06/12/19 18:29 Blood Blood Culture - Final 06/12/19 18:22 Blood Blood Culture - Final 06/12/19 18:30 Sputum - Expectorated Sputum Sputum Culture - Final 06/12/19 18:30 Sputum - Expectorated Sputum - Final Laboratory WBC 4.9 X10^3/uL (3.6-10.0) 06/16/19 04:51 RBC 3.18 X10^6/uL (3.5-5.4) L 06/16/19 04:51 Hgb 10.3 g/dL (12.0-16.0) L 06/16/19 04:51 Hct 30.4 % (36.0-47.0) L 06/16/19 04:51 MCV 95.7 fL (80.0-100.0) 06/16/19 04:51 MCH 32.4 pg (27.0-34.0) 06/16/19 04:51 MCHC 33.9 g/dL (33.0-35.0) 06/16/19 04:51 RDW 12.7 % (11.6-16.5) 06/16/19 04:51 Plt Count 130 X10^3/uL (150.0-450.0) L 06/16/19 04:51 MPV 8.5 fL (7.4-11.0) 06/16/19 04:51 Neut % (Auto) 85.3 % (42.0-75.0) H 06/16/19 04:51 Lymph % (Auto) 12.8 % (21.0-51.0) L 06/16/19 04:51 [place] % (Auto) 1.8 % (0.0-13.0) 06/16/19 04:51 Eos % (Auto) 0.0 % (0.9-2.9) L 06/16/19 04:51 Baso % (Auto) 0.1 % (0.2-1.0) L 06/16/19 04:51 Neut # (Auto) 4.1 x10^3/uL (2.2-4.8) 06/16/19 04:51 Lymph # (Auto) 0.6 X10^3/uL (1.3-2.9) L 06/16/19 04:51 [place] # (Auto) 0.1 x10^3/uL (0.3-0.8) L 06/16/19 04:51 Eos # (Auto) 0.0 x10^3/uL (0.0-0.2) 06/16/19 04:51 Baso # (Auto) 0.0 X10^3/uL (0.0-0.1) 06/16/19 04:51 Absolute Nucleated RBC 0.1 /100WBC 06/16/19 04:51 Sodium 136 mmol/L (136-145) 06/16/19 04:51 Corrected Sodium 143 mmol/L (136-145) 06/16/19 04:51 Potassium 4.4 mmol/L (3.5-5.1) 06/16/19 04:51 Chloride 100 mmol/L (98-107) 06/16/19 04:51 Carbon Dioxide 27.4 mmol/L (21-32) 06/16/19 04:51 BUN 34 mg/dL (7-18) H 06/16/19 04:51 Creatinine 1.46 mg/dL (0.55-1.02) H 06/16/19 04:51 Est GFR (MDRD) Af Amer 43 (>60) L 06/16/19 04:51 Est GFR (MDRD) Non-Af 36 (>60) L 06/16/19 04:51 Glucose 376 mg/dL (65-99) H 06/16/19 04:51 Calcium 9.0 mg/dL (8.5-10.1) 06/16/19 04:51 Corrected Calcium 9.6 mg/dL (8.5-10.1) 06/16/19 04:51 Magnesium 2.0 mg/dL (1.7-2.9) 06/14/19 04:38 Total Bilirubin 0.30 mg/dL (0.2-1.0) 06/16/19 04:51 AST 15 Units/L (15-37) 06/16/19 04:51 ALT 19 Units/L (12-78) 06/16/19 04:51 Alkaline Phosphatase 60 Units/L (46-116) 06/16/19 04:51 Total Protein 6.5 g/dL (6.4-8.2) 06/16/19 04:51 Albumin 3.2 g/dL (3.4-5.0) L 06/16/19 04:51 Globulin 3.3 g/dL (2.5-4.5) 06/16/19 04:51 Albumin/Globulin Ratio 1.0 Ratio (1.1-2.1) L 06/16/19 04:51 - Plan (1) Bronchopneumonia Status: Acute Plan: IV LEVAQUIN, SOLU-MEDROL, RESPIRATORY TREATMENTS, SUPPLEMENTAL OXYGEN, CONTINUE TO MONITOR (2) Hypertension Status: Chronic Qualifiers: Hypertension type: essential hypertension Qualified Code(s): I10 - Essential (primary) hypertension (3) GERD (gastroesophageal reflux disease) Status: Chronic Qualifiers: Esophagitis presence: esophagitis presence not specified (4) Hyperlipidemia Status: Chronic Qualifiers: Hyperlipidemia type: mixed hyperlipidemia (5) AZAR (generalized anxiety disorder) Status: Chronic (6) Coronary atherosclerosis Status: Chronic Qualifiers: Coronary Disease-Associated Artery/Lesion type: [place] artery [place] vs. transplanted heart: [place] heart Associated angina: angina presence unspecified Qualified Code(s): I25.10 - Atherosclerotic heart disease of [place] coronary artery without angina pectoris (7) Type II diabetes mellitus, uncontrolled Status: Chronic Qualifiers: Glycemic state: with hyperglycemia Qualified Code(s): E11.65 - Type 2 diabetes mellitus with hyperglycemia (8) CHF (congestive heart failure) Status: Chronic Qualifiers: Heart failure type: unspecified Heart failure chronicity: acute on chronic Qualified Code(s): I50.9 - Heart failure, unspecified Plan: LASIX 20MG IV X 1 DOSE, CONTINUE TO MONITOR
[2019-06-16] MEDS: SNACK - Diabetic Appropriate PO SCH (20:30)
[2019-06-16] MEDS: PRAVACHOL PO SCH (21:21)
[2019-06-16] MEDS: LANTUS SC SCH (21:22)
[2019-06-16] MEDS: OXYBUTYNIN CHLORIDE ER PO SCH (21:24)
[2019-06-16] MEDS: KLONOPIN TAB 0.5 MG PO SCH (21:25)
[2019-06-17] MEDS: DUONEB 0.5 MG/3 MG NEB SCH ×7 (00:10→20:50)
[2019-06-17] MEDS: SOLU-Medrol 40 MG VIAL IVP SCH ×3 (05:55→22:26)
[2019-06-17] MEDS: APRESOLINE TAB 25 MG PO SCH ×3 (05:55→22:22)
[2019-06-17 06:05] LABS: BASOPHILS % (AUTO) 0.1 % (0.2-1.0); HEMATOCRIT 26.7 % (36.0-47.0); HEMOGLOBIN 9.1 g/dL (12.0-16.0); LYMPHOCYTES # (AUTO) 0.8 X10^3/uL (1.3-2.9); LYMPHOCYTES % (AUTO) 5.8 % (21.0-51.0); MEAN CORPUSCULAR HGB CONC 33.9 g/dL (33.0-35.0); MEAN CORPUSCULAR VOLUME 94.6 fL (80.0-100.0); MONOCYTES # (AUTO) 0.3 x10^3/uL (0.3-0.8); NEUTROPHILS # (AUTO) 12.5 x10^3/uL (2.2-4.8); NEUTROPHILS % (AUTO) 92.1 % (42.0-75.0); PLATELET COUNT 136 X10^3/uL (150.0-450.0); RED BLOOD COUNT 2.83 X10^6/uL (3.5-5.4); RED CELL DISTRIBUTION WIDTH 12.9 % (11.6-16.5); WHITE BLOOD COUNT 13.5 X10^3/uL (3.6-10.0)
[2019-06-17] MEDS: HumuLIN R SUBCUT PRN ×4 (06:18→22:29)
[2019-06-17 06:21] LABS: ALBUMIN 3.2 g/dL (3.4-5.0); CALCIUM 8.7 mg/dL (8.5-10.1); CARBON DIOXIDE 31.7 mmol/L (21-32); COR CA(FOR HYPOALB) 9.3 mg/dL (8.5-10.1); CREATININE 1.36 mg/dL (0.55-1.02); TOTAL PROTEIN 5.8 g/dL (6.4-8.2)
[2019-06-17 06:33] LABS: BAND NEUTROPHILS % 2 % (0-10)
[2019-06-17 06:34] LABS: PLATELET MORPHOLOGY COMMENT NORMAL (NORMAL)
[2019-06-17] MEDS: PULMICORT NEB TX 0.5 MG NEB SCH ×2 (08:32→20:50)
[2019-06-17] MEDS: LEVAQUIN PREMIX IV 500 MG 500 MG/100 ML BAG IV SCH (09:21)
[2019-06-17] MEDS: COLACE CAP 100 MG PO SCH ×2 (09:23→22:25)
[2019-06-17] MEDS: NYSTATIN SUSP MT SCH ×4 (09:23→22:27)
[2019-06-17] MEDS: COREG TAB 25 MG PO SCH ×2 (09:23→22:23)
[2019-06-17] MEDS: VSL#3 PO SCH (09:23)
[2019-06-17] MEDS: HEMOCYTE-PLUS PO SCH (09:23)
[2019-06-17] MEDS: PROTONIX TAB 40 MG PO SCH (09:23)
[2019-06-17] MEDS: ROBITUSSIN DM PO SCH ×4 (09:23→22:30)
[2019-06-17] MEDS: NORVASC TAB 5 MG PO SCH (09:24)
[2019-06-17] MEDS: COZAAR PO SCH ×2 (09:24→22:20)
[2019-06-17] MEDS: ZANTAC PO SCH ×2 (09:24→22:23)
[2019-06-17] MEDS: BENADRYL CAP/TAB 25 MG PO SCH ×2 (09:24→22:23)
[2019-06-17] MEDS: MIRALAX POWDER (1 DOSE 17 G) PO SCH (09:25)
[2019-06-17] MEDS: MILK OF MAGNESIA PO SCH ×4 (09:25→22:26)
[2019-06-17] MEDS: MUCINEX DM PO SCH ×2 (09:25→22:26)
[2019-06-17] MEDS: TUSSIONEX PENNKINETIC SUSP PO SCH ×3 (09:27→22:30)
[2019-06-17] MEDS: FLONASE NASAL SPRAY ENOSTRIL SCH (09:27)
[2019-06-17] MEDS: LOVENOX INJ 30 MG SYR SC SCH (09:29)
[2019-06-17] MEDS: HIPREX PO SCH ×2 (09:34→22:26)
[2019-06-17] MEDS: FORTAZ or TAZICEF VIAL INJ 1 G in NS 100 ML IV + SPIKE MINIBAG* 100 ML IV SCH ×2 (10:37→22:26)
[2019-06-17] MEDS: DIFLUCAN 200 MG IV PREMIX* 200 MG/100 ML BAG IV SCH (11:59)
[2019-06-17] MEDS: ALBUMIN HUMAN 25%- 100 ML 100 ML IV SCH (13:15)
[2019-06-17] MEDS: SNACK - Diabetic Appropriate PO SCH (20:24)
[2019-06-17] MEDS ORDERED: NS 1/2 1000 ML IV 1,000 ML ONE (22:11)
[2019-06-17] MEDS: NS 1/2 1000 ML IV 1,000 ML IV SCH (22:17)
[2019-06-17] MEDS: PROCALAMINE 3 % 1,000 ML IV SCH (22:18)
[2019-06-17] MEDS: PRAVACHOL PO SCH (22:22)
[2019-06-17] MEDS: KLONOPIN TAB 0.5 MG PO SCH (22:23)
[2019-06-17] MEDS: OXYBUTYNIN CHLORIDE ER PO SCH (22:27)
[2019-06-17] MEDS: LANTUS SC SCH (22:28)
[2019-06-18] MEDS: DUONEB 0.5 MG/3 MG NEB SCH ×6 (00:28→20:06)
[2019-06-18] MEDS: NS 1/2 1000 ML IV 1,000 ML IV SCH (04:56)
[2019-06-18 05:20] LABS: BASOPHILS % (AUTO) 0.1 % (0.2-1.0); HEMATOCRIT 27.2 % (36.0-47.0); HEMOGLOBIN 9.2 g/dL (12.0-16.0); LYMPHOCYTES # (AUTO) 0.6 X10^3/uL (1.3-2.9); LYMPHOCYTES % (AUTO) 4.6 % (21.0-51.0); MEAN CORPUSCULAR HEMOGLOBIN 32.5 pg (27.0-34.0); MEAN CORPUSCULAR HGB CONC 33.9 g/dL (33.0-35.0); MEAN CORPUSCULAR VOLUME 95.8 fL (80.0-100.0); MEAN PLATELET VOLUME 8.8 fL (7.4-11.0); MONOCYTES # (AUTO) 0.2 x10^3/uL (0.3-0.8); MONOCYTES % (AUTO) 1.6 % (0.0-13.0); NEUTROPHILS # (AUTO) 11.2 x10^3/uL (2.2-4.8); NEUTROPHILS % (AUTO) 93.7 % (42.0-75.0); PLATELET COUNT 152 X10^3/uL (150.0-450.0); RED BLOOD COUNT 2.84 X10^6/uL (3.5-5.4); RED CELL DISTRIBUTION WIDTH 13.1 % (11.6-16.5)
[2019-06-18 05:36] LABS: ALANINE AMINOTRANSFERASE 36 Units/L (12-78); ALBUMIN 3.4 g/dL (3.4-5.0); ALKALINE PHOSPHATASE 48 Units/L (46-116); ASPARTATE AMINO TRANSFERASE 18 Units/L (15-37); BLOOD UREA NITROGEN 46 mg/dL (7-18); CALCIUM 8.8 mg/dL (8.5-10.1); CARBON DIOXIDE 30.5 mmol/L (21-32); CHLORIDE 101 mmol/L (98-107); COR NA(FOR HYPERGLY) 143 mmol/L (136-145); CREATININE 1.39 mg/dL (0.55-1.02); SODIUM 137 mmol/L (136-145); TOTAL PROTEIN 5.9 g/dL (6.4-8.2); eGFR NON BLACK RACES 38 (>60)
[2019-06-18 05:56] LABS: PLATELET MORPHOLOGY COMMENT NORMAL (NORMAL)
[2019-06-18] MEDS: APRESOLINE TAB 25 MG PO SCH ×3 (06:32→22:31)
[2019-06-18] MEDS: HumuLIN R SUBCUT PRN ×3 (06:32→17:29)
[2019-06-18] MEDS: SOLU-Medrol 40 MG VIAL IVP SCH (06:32)
[2019-06-18] MEDS: DIFLUCAN 200 MG IV PREMIX* 200 MG/100 ML BAG IV SCH ×2 (07:52→09:01)
[2019-06-18] MEDS: PULMICORT NEB TX 0.5 MG NEB SCH ×2 (08:11→20:06)
[2019-06-18] MEDS: LEVAQUIN PREMIX IV 500 MG 500 MG/100 ML BAG IV SCH (08:53)
[2019-06-18] MEDS: PROTONIX TAB 40 MG PO SCH (08:56)
[2019-06-18] MEDS: HEMOCYTE-PLUS PO SCH (08:56)
[2019-06-18] MEDS: COZAAR PO SCH ×2 (08:56→22:07)
[2019-06-18] MEDS: COREG TAB 25 MG PO SCH ×2 (08:57→22:11)
[2019-06-18] MEDS: ZANTAC PO SCH ×2 (08:58→22:08)
[2019-06-18] MEDS: COLACE CAP 100 MG PO SCH ×2 (08:58→22:10)
[2019-06-18] MEDS: BENADRYL CAP/TAB 25 MG PO SCH ×2 (08:58→21:28)
[2019-06-18] MEDS: VSL#3 PO SCH (08:58)
[2019-06-18] MEDS: NORVASC TAB 5 MG PO SCH (08:58)
[2019-06-18] MEDS: ROBITUSSIN DM PO SCH ×4 (08:59→21:00)
[2019-06-18] MEDS: NYSTATIN SUSP MT SCH ×4 (08:59→22:05)
[2019-06-18] MEDS: MUCINEX DM PO SCH ×2 (08:59→21:30)
[2019-06-18] MEDS: TUSSIONEX PENNKINETIC SUSP PO SCH ×3 (08:59→22:06)
[2019-06-18] MEDS: HIPREX PO SCH ×2 (09:00→21:29)
[2019-06-18] MEDS: MILK OF MAGNESIA PO SCH ×4 (09:00→22:05)
[2019-06-18] MEDS: FLONASE NASAL SPRAY ENOSTRIL SCH (09:00)
[2019-06-18] MEDS: MIRALAX POWDER (1 DOSE 17 G) PO SCH (09:00)
[2019-06-18] MEDS: LOVENOX INJ 30 MG SYR SC SCH (09:02)
[2019-06-18] MEDS: FORTAZ or TAZICEF VIAL INJ 1 G in NS 100 ML IV + SPIKE MINIBAG* 100 ML IV SCH ×2 (10:11→22:04)
[2019-06-18] MEDS: ALBUMIN HUMAN 25%- 100 ML 100 ML IV SCH (11:38)
--- NOTE | 2019-06-18 19:42 | PCM.PROG ---
Progress Note - Progress Note for Day of Date of Exam: 06/17/19 - Subjective Subjective: WAS ADMITTED FOR BRONCHOPNEUMONIA. TODAY, SHE IS ALERT AND ORIENTED, LYING IN BED ON MORNING ROUNDS. SHE CONTINUES WITH COMPLAINTS OF SHORTNESS OF BREATH AND COUGH. ON EXAMINATION, HEART IS REGULAR IN RATE AND RHYTHM. BILATERAL LUNGS ARE NOTED WITH SCATTERED WHEEZING AND RHONCHI. ABDOMEN IS ROUND, SOFT, AND NON-TENDER WITH NORMAL BOWEL SOUNDS NOTED IN ALL QUADRANTS. HER VITALS THIS MORNING ARE: 99.4-86-20-96%-179/75. LABS WERE OBTAINED. ABNORMAL LAB VALUES INCLUDE THE FOLLOWING: WBC 13.5, RBC 2.83, HGB 9.1, HCT 26.7, PLT COUNT 136, BUN 44, CREATININE 1.36, GLUCOSE 312, TOTAL PROTEIN 5.8, ALBUMIN 3.2. BLOOD AND SPUTUM CULTURES ARE PENDING. A CHEST XRAY WAS OBTAINED TODAY AND REVEALED: DIFFUSE INTERSTITIAL PULMONARY INCREASE MAY REPRESENT ANY COMBINATION OF UNDERLYING FIBROSIS AND A MORE ACUTE CONGESTIVE PROCESS. SHE IS CURRENTLY RECEIVING IV LEVAQUIN, IV NUTRITION, SOLU-MEDROL, RESPIRATORY TREATMENTS, SUPPLEMENTAL OXYGEN, AND HOME MEDICATIONS WERE RESUMED. TODAY, WE WILL ADMINISTER LASIX 20MG IV X 1 DOSE AND START DIFLUCAN 200MG IV DAILY AND NYSTATIN SWISH AND SWALLOW. OTHERWISE, WE WILL CONTINUE WITH CURRENT PLAN OF CARE . WE PLAN TO FOLLOW UP WITH AM LABS AND CONTINUE TO MONITOR. - Past Medical Family Social History Past Med/Fam/Surg Hx: No changes since H&P Allergies: Allergies lanolin [From Artificial Tears] Allergy (Verified 06/13/19 13:33) mineral oil [From Artificial Tears] Allergy (Verified 06/13/19 13:33) Penicillins Allergy (Verified 04/04/18 19:58) petrolatum,white [From Artificial Tears] Allergy (Verified 06/13/19 13:33) zolpidem Allergy (Verified 04/04/18 19:58) diazepam Adverse Reaction (Verified 04/04/18 19:58) CONFUSION - Review of Systems ROS: No change since H&P - Vital Signs and I&O's Vital Signs: Temperature 98.6 F Pulse Rate [Left] 80 Pulse Rate 80 Respiratory Rate 18 Blood Pressure [Right Arm] 137/60 Blood Pressure [Left Femoral 129/56 Artery] Blood Pressure [Left Arm] 155/67 Blood Pressure 115/53 O2 Sat by Pulse Oximetry 90 Intake and Output: Intake & Output 06/16/19 06/17/19 06/18/19 06/19/19 11:59 11:59 11:59 11:59 Intake Total 2310 / 2310 2705 / 2705 1090 / 1090 880 / 880 Balance 2310 / 2310 2705 / 2705 1090 / 1090 880 / 880 - Physical Exam Oriented: Normal Eyes: Normal Ear: Normal Nose: Normal Throat: Normal Respiratory: Generalized, Wheezes, Rhonchi Cardiovascular: Normal. negative: S3, S4, Murmur : Normal Auscultation: Bowel Sounds: Normal Palpation: Normal Tenderness: Normal Skin: Normal Musculoskeletal: Normal Psychiatric: Normal Mood Description: Calm Affect: Normal Speech Pattern: Clear, Appropriate - Laboratory and Diagnostics Result Diagrams: 06/18/19 04:48 06/18/19 04:48 Labs: 06/12/19 18:29 Blood Blood Culture - Final 06/12/19 18:22 Blood Blood Culture - Final 06/12/19 18:30 Sputum - Expectorated Sputum Sputum Culture - Final 06/12/19 18:30 Sputum - Expectorated Sputum - Final Laboratory WBC 12.0 X10^3/uL (3.6-10.0) H 06/18/19 04:48 RBC 2.84 X10^6/uL (3.5-5.4) L 06/18/19 04:48 Hgb 9.2 g/dL (12.0-16.0) L 06/18/19 04:48 Hct 27.2 % (36.0-47.0) L 06/18/19 04:48 MCV 95.8 fL (80.0-100.0) 06/18/19 04:48 MCH 32.5 pg (27.0-34.0) 06/18/19 04:48 MCHC 33.9 g/dL (33.0-35.0) 06/18/19 04:48 RDW 13.1 % (11.6-16.5) 06/18/19 04:48 Plt Count 152 X10^3/uL (150.0-450.0) 06/18/19 04:48 Plt Count Comment Adequate (ADEQUATE) 06/18/19 04:48 MPV 8.8 fL (7.4-11.0) 06/18/19 04:48 Neut % (Auto) 93.7 % (42.0-75.0) H 06/18/19 04:48 Lymph % (Auto) 4.6 % (21.0-51.0) L 06/18/19 04:48 [place] % (Auto) 1.6 % (0.0-13.0) 06/18/19 04:48 Eos % (Auto) 0.0 % (0.9-2.9) L 06/18/19 04:48 Baso % (Auto) 0.1 % (0.2-1.0) L 06/18/19 04:48 Neut # (Auto) 11.2 x10^3/uL (2.2-4.8) H 06/18/19 04:48 Lymph # (Auto) 0.6 X10^3/uL (1.3-2.9) L 06/18/19 04:48 [place] # (Auto) 0.2 x10^3/uL (0.3-0.8) L 06/18/19 04:48 Eos # (Auto) 0.0 x10^3/uL (0.0-0.2) 06/18/19 04:48 Baso # (Auto) 0.0 X10^3/uL (0.0-0.1) 06/18/19 04:48 Absolute Nucleated RBC 0.0 /100WBC 06/18/19 04:48 Total Counted 100 06/18/19 04:48 Neutrophils % (Manual) 94 % (39-76) H 06/18/19 04:48 Band Neutrophils % 2 % (0-10) 06/17/19 04:53 Lymphocytes % (Manual) 5 % (13-43) L 06/18/19 04:48 Monocytes % (Manual) 1 % (4-9) L 06/18/19 04:48 Plt Morphology Comment Normal (NORMAL) 06/18/19 04:48 RBC Morphology Normal (NORMAL) 06/18/19 04:48 Sodium 137 mmol/L (136-145) 06/18/19 04:48 Corrected Sodium 143 mmol/L (136-145) 06/18/19 04:48 Potassium 4.9 mmol/L (3.5-5.1) 06/18/19 04:48 Chloride 101 mmol/L (98-107) 06/18/19 04:48 Carbon Dioxide 30.5 mmol/L (21-32) 06/18/19 04:48 BUN 46 mg/dL (7-18) H 06/18/19 04:48 Creatinine 1.39 mg/dL (0.55-1.02) H 06/18/19 04:48 Est GFR (MDRD) Af Amer 46 (>60) L 06/18/19 04:48 Est GFR (MDRD) Non-Af 38 (>60) L 06/18/19 04:48 Glucose 342 mg/dL (65-99) H 06/18/19 04:48 Calcium 8.8 mg/dL (8.5-10.1) 06/18/19 04:48 Corrected Calcium TNP 06/18/19 04:48 Magnesium 2.0 mg/dL (1.7-2.9) 06/14/19 04:38 Total Bilirubin 0.20 mg/dL (0.2-1.0) 06/18/19 04:48 AST 18 Units/L (15-37) 06/18/19 04:48 ALT 36 Units/L (12-78) 06/18/19 04:48 Alkaline Phosphatase 48 Units/L (46-116) 06/18/19 04:48 Total Protein 5.9 g/dL (6.4-8.2) L 06/18/19 04:48 Albumin 3.4 g/dL (3.4-5.0) 06/18/19 04:48 Globulin 2.5 g/dL (2.5-4.5) 06/18/19 04:48 Albumin/Globulin Ratio 1.4 Ratio (1.1-2.1) 06/18/19 04:48 - Plan (1) Bronchopneumonia Status: Acute Plan: IV LEVAQUIN, SOLU-MEDROL, DIFLUCAN, NYSTATIN SWISH AND SWALLOW, RESPIRATORY TREATMENTS, SUPPLEMENTAL OXYGEN, CONTINUE TO MONITOR (2) Hypertension Status: Chronic Qualifiers: Hypertension type: essential hypertension Qualified Code(s): I10 - Essential (primary) hypertension (3) GERD (gastroesophageal reflux disease) Status: Chronic Qualifiers: Esophagitis presence: esophagitis presence not specified (4) Hyperlipidemia Status: Chronic Qualifiers: Hyperlipidemia type: mixed hyperlipidemia (5) AZAR (generalized anxiety disorder) Status: Chronic (6) Coronary atherosclerosis Status: Chronic Qualifiers: Coronary Disease-Associated Artery/Lesion type: [place] artery [place] vs. transplanted heart: [place] heart Associated angina: angina presence unspecified Qualified Code(s): I25.10 - Atherosclerotic heart disease of [place] coronary artery without angina pectoris (7) Type II diabetes mellitus, uncontrolled Status: Chronic Qualifiers: Glycemic state: with hyperglycemia Qualified Code(s): E11.65 - Type 2 diabetes mellitus with hyperglycemia (8) CHF (congestive heart failure) Status: Chronic Qualifiers: Heart failure type: unspecified Heart failure chronicity: acute on chronic Qualified Code(s): I50.9 - Heart failure, unspecified Plan: LASIX 20MG IV X 1 DOSE, CONTINUE TO MONITOR
[2019-06-18] MEDS: SNACK - Diabetic Appropriate PO SCH (20:27)
[2019-06-18] MEDS: LANTUS SC SCH (21:00)
[2019-06-18] MEDS: OXYBUTYNIN CHLORIDE ER PO SCH (22:08)
[2019-06-18] MEDS: KLONOPIN TAB 0.5 MG PO SCH (22:10)
[2019-06-18] MEDS: PRAVACHOL PO SCH (22:11)
[2019-06-19] MEDS: DUONEB 0.5 MG/3 MG NEB SCH ×6 (00:26→21:06)
[2019-06-19 05:21] LABS: BASOPHILS % (AUTO) 0.1 % (0.2-1.0); HEMATOCRIT 27.2 % (36.0-47.0); HEMOGLOBIN 9.3 g/dL (12.0-16.0); LYMPHOCYTES # (AUTO) 0.9 X10^3/uL (1.3-2.9); LYMPHOCYTES % (AUTO) 6.3 % (21.0-51.0); MEAN CORPUSCULAR HEMOGLOBIN 32.3 pg (27.0-34.0); MEAN CORPUSCULAR HGB CONC 34.2 g/dL (33.0-35.0); MEAN CORPUSCULAR VOLUME 94.6 fL (80.0-100.0); MEAN PLATELET VOLUME 8.3 fL (7.4-11.0); MONOCYTES # (AUTO) 0.8 x10^3/uL (0.3-0.8); MONOCYTES % (AUTO) 5.9 % (0.0-13.0); NEUTROPHILS # (AUTO) 12.4 x10^3/uL (2.2-4.8); NEUTROPHILS % (AUTO) 87.7 % (42.0-75.0); PLATELET COUNT 172 X10^3/uL (150.0-450.0); RED BLOOD COUNT 2.88 X10^6/uL (3.5-5.4); RED CELL DISTRIBUTION WIDTH 12.9 % (11.6-16.5); WHITE BLOOD COUNT 14.1 X10^3/uL (3.6-10.0)
[2019-06-19 05:33] LABS: ALANINE AMINOTRANSFERASE 33 Units/L (12-78); ALBUMIN 3.5 g/dL (3.4-5.0); ALKALINE PHOSPHATASE 45 Units/L (46-116); ASPARTATE AMINO TRANSFERASE 16 Units/L (15-37); BLOOD UREA NITROGEN 41 mg/dL (7-18); CALCIUM 9.1 mg/dL (8.5-10.1); CHLORIDE 104 mmol/L (98-107); COR NA(FOR HYPERGLY) 142 mmol/L (136-145); CREATININE 1.25 mg/dL (0.55-1.02); SODIUM 141 mmol/L (136-145); eGFR NON BLACK RACES 43 (>60)
[2019-06-19] MEDS: APRESOLINE TAB 25 MG PO SCH ×4 (05:59→22:44)
[2019-06-19] MEDS: PROCALAMINE 3 % 1,000 ML IV SCH (06:00)
[2019-06-19] MEDS: NS 1/2 1000 ML IV 1,000 ML IV SCH ×3 (06:16→22:44)
[2019-06-19] MEDS: PULMICORT NEB TX 0.5 MG NEB SCH ×2 (08:03→21:06)
[2019-06-19] MEDS: ALBUMIN HUMAN 25%- 100 ML 100 ML IV SCH (08:57)
[2019-06-19] MEDS: DIFLUCAN 200 MG IV PREMIX* 200 MG/100 ML BAG IV SCH (08:57)
[2019-06-19] MEDS: VSL#3 PO SCH (08:58)
[2019-06-19] MEDS: NYSTATIN SUSP MT SCH ×4 (08:58→20:45)
[2019-06-19] MEDS: TUSSIONEX PENNKINETIC SUSP PO SCH ×3 (08:58→22:44)
[2019-06-19] MEDS: ZANTAC PO SCH ×2 (08:59→20:46)
[2019-06-19] MEDS: COZAAR PO SCH ×2 (08:59→20:45)
[2019-06-19] MEDS: BENADRYL CAP/TAB 25 MG PO SCH ×2 (08:59→20:45)
[2019-06-19] MEDS: PROTONIX TAB 40 MG PO SCH (08:59)
[2019-06-19] MEDS: HEMOCYTE-PLUS PO SCH (08:59)
[2019-06-19] MEDS: COLACE CAP 100 MG PO SCH ×2 (08:59→20:46)
[2019-06-19] MEDS: COREG TAB 25 MG PO SCH ×2 (08:59→20:46)
[2019-06-19] MEDS: NORVASC TAB 5 MG PO SCH (08:59)
[2019-06-19] MEDS: ROBITUSSIN DM PO SCH ×4 (09:00→20:45)
[2019-06-19] MEDS: MILK OF MAGNESIA PO SCH ×4 (09:00→20:45)
[2019-06-19] MEDS: MIRALAX POWDER (1 DOSE 17 G) PO SCH (09:00)
[2019-06-19] MEDS: MUCINEX DM PO SCH ×2 (09:01→20:47)
[2019-06-19] MEDS: HIPREX PO SCH ×2 (09:01→20:47)
[2019-06-19] MEDS: FLONASE NASAL SPRAY ENOSTRIL SCH (09:01)
[2019-06-19] MEDS: LOVENOX INJ 30 MG SYR SC SCH (09:02)
[2019-06-19] MEDS: FORTAZ or TAZICEF VIAL INJ 1 G in NS 100 ML IV + SPIKE MINIBAG* 100 ML IV SCH ×2 (11:15→20:47)
[2019-06-19] MEDS: LEVAQUIN PREMIX IV 500 MG 500 MG/100 ML BAG IV SCH (13:15)
[2019-06-19] MEDS: HumuLIN R SUBCUT PRN ×2 (17:15→20:52)
--- NOTE | 2019-06-19 19:57 | PCM.PROG ---
Progress Note - Progress Note for Day of Date of Exam: 06/18/19 - Subjective Subjective: WAS ADMITTED FOR BRONCHOPNEUMONIA. TODAY, SHE IS ALERT AND ORIENTED, LYING IN BED ON MORNING ROUNDS. SHE CONTINUES WITH COMPLAINTS OF SHORTNESS OF BREATH AND COUGH. COUGH IS NOW NON-PRODUCTIVE. ON EXAMINATION, HEART IS REGULAR IN RATE AND RHYTHM. BILATERAL LUNGS ARE NOTED WITH SCATTERED WHEEZING AND RHONCHI. ABDOMEN IS ROUND, SOFT, AND NON-TENDER WITH NORMAL BOWEL SOUNDS NOTED IN ALL QUADRANTS. HER VITALS THIS MORNING ARE: 99.4-86-20-96%-179/75. LABS WERE OBTAINED. ABNORMAL LAB VALUES INCLUDE THE FOLLOWING: WBC 12.0, RBC 2.84, HGB 9.2, HCT 27.2, BUN 46, CREATININE 1.39, GLUCO SE 342, TOTAL PROTEIN 5.9. BLOOD AND SPUTUM CULTURES ARE PENDING. A CHEST XRAY WAS OBTAINED TODAY AND REVEALED NO SIGNIFICANT CHANGE FROM YESTERDAY. SHE IS CURRENTLY RECEIVING IV LEVAQUIN, IV NUTRITION, SOLU-MEDROL, RESPIRATORY TREATMENTS, SUPPLEMENTAL OXYGEN, IV DIFLUCAN, AND HOME MEDICATIONS WERE RESUMED. TODAY, WE WILL CONTINUE WITH CURRENT PLAN OF CARE. OTHERWISE, WE PLAN TO FOLLOW UP WITH AM LABS AND CONTINUE TO MONITOR. - Past Medical Family Social History Past Med/Fam/Surg Hx: No changes since H&P Allergies: Allergies lanolin [From Artificial Tears] Allergy (Verified 06/13/19 13:33) mineral oil [From Artificial Tears] Allergy (Verified 06/13/19 13:33) Penicillins Allergy (Verified 04/04/18 19:58) petrolatum,white [From Artificial Tears] Allergy (Verified 06/13/19 13:33) zolpidem Allergy (Verified 04/04/18 19:58) diazepam Adverse Reaction (Verified 04/04/18 19:58) CONFUSION - Review of Systems ROS: No change since H&P - Vital Signs and I&O's Vital Signs: Temperature 98.8 F Pulse Rate [Left] 80 Pulse Rate 77 Respiratory Rate 20 Blood Pressure [Right Arm] 137/60 Blood Pressure [Left Femoral 129/56 Artery] Blood Pressure [Left Arm] 174/72 Blood Pressure 115/53 O2 Sat by Pulse Oximetry 96 Intake and Output: Intake & Output 06/17/19 06/18/19 06/19/19 06/20/19 11:59 11:59 11:59 11:59 Intake Total 2705 / 2705 1090 / 1090 1345 / 1345 580 / 580 Balance 2705 / 2705 1090 / 1090 1345 / 1345 580 / 580 - Physical Exam Oriented: Normal Eyes: Normal Ear: Normal Nose: Normal Throat: Normal Respiratory: Generalized, Wheezes, Rhonchi Cardiovascular: Normal. negative: S3, S4, Murmur : Normal Auscultation: Bowel Sounds: Normal Tenderness: Normal Skin: Normal Musculoskeletal: Normal Psychiatric: Normal Mood Description: Calm Affect: Normal Speech Pattern: Clear, Appropriate - Laboratory and Diagnostics Result Diagrams: 06/19/19 05:03 06/19/19 05:03 Labs: 06/12/19 18:29 Blood Blood Culture - Final 06/12/19 18:22 Blood Blood Culture - Final 06/12/19 18:30 Sputum - Expectorated Sputum Sputum Culture - Final 06/12/19 18:30 Sputum - Expectorated Sputum - Final Laboratory WBC 14.1 X10^3/uL (3.6-10.0) H 06/19/19 05:03 RBC 2.88 X10^6/uL (3.5-5.4) L 06/19/19 05:03 Hgb 9.3 g/dL (12.0-16.0) L 06/19/19 05:03 Hct 27.2 % (36.0-47.0) L 06/19/19 05:03 MCV 94.6 fL (80.0-100.0) 06/19/19 05:03 MCH 32.3 pg (27.0-34.0) 06/19/19 05:03 MCHC 34.2 g/dL (33.0-35.0) 06/19/19 05:03 RDW 12.9 % (11.6-16.5) 06/19/19 05:03 Plt Count 172 X10^3/uL (150.0-450.0) 06/19/19 05:03 Plt Count Comment Adequate (ADEQUATE) 06/18/19 04:48 MPV 8.3 fL (7.4-11.0) 06/19/19 05:03 Neut % (Auto) 87.7 % (42.0-75.0) H 06/19/19 05:03 Lymph % (Auto) 6.3 % (21.0-51.0) L 06/19/19 05:03 [place] % (Auto) 5.9 % (0.0-13.0) 06/19/19 05:03 Eos % (Auto) 0.0 % (0.9-2.9) L 06/19/19 05:03 Baso % (Auto) 0.1 % (0.2-1.0) L 06/19/19 05:03 Neut # (Auto) 12.4 x10^3/uL (2.2-4.8) H 06/19/19 05:03 Lymph # (Auto) 0.9 X10^3/uL (1.3-2.9) L 06/19/19 05:03 [place] # (Auto) 0.8 x10^3/uL (0.3-0.8) 06/19/19 05:03 Eos # (Auto) 0.0 x10^3/uL (0.0-0.2) 06/19/19 05:03 Baso # (Auto) 0.0 X10^3/uL (0.0-0.1) 06/19/19 05:03 Absolute Nucleated RBC 0.0 /100WBC 06/19/19 05:03 Total Counted 100 06/18/19 04:48 Neutrophils % (Manual) 94 % (39-76) H 06/18/19 04:48 Band Neutrophils % 2 % (0-10) 06/17/19 04:53 Lymphocytes % (Manual) 5 % (13-43) L 06/18/19 04:48 Monocytes % (Manual) 1 % (4-9) L 06/18/19 04:48 Plt Morphology Comment Normal (NORMAL) 06/18/19 04:48 RBC Morphology Normal (NORMAL) 06/18/19 04:48 Sodium 141 mmol/L (136-145) 06/19/19 05:03 Corrected Sodium 142 mmol/L (136-145) 06/19/19 05:03 Potassium 4.2 mmol/L (3.5-5.1) 06/19/19 05:03 Chloride 104 mmol/L (98-107) 06/19/19 05:03 Carbon Dioxide 32.0 mmol/L (21-32) 06/19/19 05:03 BUN 41 mg/dL (7-18) H 06/19/19 05:03 Creatinine 1.25 mg/dL (0.55-1.02) H 06/19/19 05:03 Est GFR (MDRD) Af Amer 52 (>60) L 06/19/19 05:03 Est GFR (MDRD) Non-Af 43 (>60) L 06/19/19 05:03 Glucose 142 mg/dL (65-99) H 06/19/19 05:03 Calcium 9.1 mg/dL (8.5-10.1) 06/19/19 05:03 Corrected Calcium TNP 06/19/19 05:03 Magnesium 2.0 mg/dL (1.7-2.9) 06/14/19 04:38 Total Bilirubin 0.30 mg/dL (0.2-1.0) 06/19/19 05:03 AST 16 Units/L (15-37) 06/19/19 05:03 ALT 33 Units/L (12-78) 06/19/19 05:03 Alkaline Phosphatase 45 Units/L (46-116) L 06/19/19 05:03 Total Protein 6.0 g/dL (6.4-8.2) L 06/19/19 05:03 Albumin 3.5 g/dL (3.4-5.0) 06/19/19 05:03 Globulin 2.5 g/dL (2.5-4.5) 06/19/19 05:03 Albumin/Globulin Ratio 1.4 Ratio (1.1-2.1) 06/19/19 05:03 - Plan (1) Bronchopneumonia Status: Acute Plan: IV LEVAQUIN, SOLU-MEDROL, DIFLUCAN, NYSTATIN SWISH AND SWALLOW, RESPIRATORY TREATMENTS, SUPPLEMENTAL OXYGEN, CONTINUE TO MONITOR (2) Hypertension Status: Chronic Qualifiers: Hypertension type: essential hypertension Qualified Code(s): I10 - Essential (primary) hypertension (3) GERD (gastroesophageal reflux disease) Status: Chronic Qualifiers: Esophagitis presence: esophagitis presence not specified (4) Hyperlipidemia Status: Chronic Qualifiers: Hyperlipidemia type: mixed hyperlipidemia (5) AZAR (generalized anxiety disorder) Status: Chronic (6) Coronary atherosclerosis Status: Chronic Qualifiers: Coronary Disease-Associated Artery/Lesion type: [place] artery [place] vs. transplanted heart: [place] heart Associated angina: angina presence unspecified Qualified Code(s): I25.10 - Atherosclerotic heart disease of [place] coronary artery without angina pectoris (7) Type II diabetes mellitus, uncontrolled Status: Chronic Qualifiers: Glycemic state: with hyperglycemia Qualified Code(s): E11.65 - Type 2 diabetes mellitus with hyperglycemia (8) CHF (congestive heart failure) Status: Chronic Qualifiers: Heart failure type: unspecified Heart failure chronicity: acute on chronic Qualified Code(s): I50.9 - Heart failure, unspecified Plan: LASIX 20MG IV X 1 DOSE, CONTINUE TO MONITOR
[2019-06-19] MEDS: OXYBUTYNIN CHLORIDE ER PO SCH (20:46)
[2019-06-19] MEDS: KLONOPIN TAB 0.5 MG PO SCH (20:46)
[2019-06-19] MEDS: PRAVACHOL PO SCH (20:47)
[2019-06-19] MEDS: LANTUS SC SCH (20:48)
[2019-06-19] MEDS: SNACK - Diabetic Appropriate PO SCH (20:54)
[2019-06-20] MEDS: DUONEB 0.5 MG/3 MG NEB SCH ×4 (00:14→12:03)
[2019-06-20] MEDS ORDERED: NS 1/2 1000 ML IV 1,000 ML ONE (05:13)
[2019-06-20] MEDS: NS 1/2 1000 ML IV 1,000 ML IV SCH (05:26)
[2019-06-20] MEDS: APRESOLINE TAB 25 MG PO SCH (05:26)
[2019-06-20] MEDS: PROCALAMINE 3 % 1,000 ML IV SCH (05:27)
[2019-06-20 05:34] LABS: BASOPHILS % (AUTO) 0.1 % (0.2-1.0); EOSINOPHILS % (AUTO) 0.1 % (0.9-2.9); HEMATOCRIT 27.4 % (36.0-47.0); HEMOGLOBIN 9.5 g/dL (12.0-16.0); LYMPHOCYTES # (AUTO) 0.6 X10^3/uL (1.3-2.9); LYMPHOCYTES % (AUTO) 7.8 % (21.0-51.0); MEAN CORPUSCULAR HEMOGLOBIN 32.9 pg (27.0-34.0); MEAN CORPUSCULAR HGB CONC 34.7 g/dL (33.0-35.0); MEAN CORPUSCULAR VOLUME 94.7 fL (80.0-100.0); MONOCYTES # (AUTO) 0.5 x10^3/uL (0.3-0.8); MONOCYTES % (AUTO) 6.5 % (0.0-13.0); NEUTROPHILS # (AUTO) 7.1 x10^3/uL (2.2-4.8); NEUTROPHILS % (AUTO) 85.5 % (42.0-75.0); PLATELET COUNT 171 X10^3/uL (150.0-450.0); RED CELL DISTRIBUTION WIDTH 12.8 % (11.6-16.5); WHITE BLOOD COUNT 8.3 X10^3/uL (3.6-10.0)
[2019-06-20 05:47] LABS: ALANINE AMINOTRANSFERASE 28 Units/L (12-78); ALBUMIN 3.5 g/dL (3.4-5.0); ALKALINE PHOSPHATASE 42 Units/L (46-116); ASPARTATE AMINO TRANSFERASE 13 Units/L (15-37); BLOOD UREA NITROGEN 33 mg/dL (7-18); CALCIUM 8.7 mg/dL (8.5-10.1); CARBON DIOXIDE 35.2 mmol/L (21-32); CHLORIDE 102 mmol/L (98-107); COR NA(FOR HYPERGLY) 141 mmol/L (136-145); CREATININE 1.03 mg/dL (0.55-1.02); SODIUM 140 mmol/L (136-145); TOTAL PROTEIN 6.3 g/dL (6.4-8.2); eGFR NON BLACK RACES 54 (>60)
--- NOTE | 2019-06-20 06:35 | RAD ---
HISTORY: Shortness of breath Study: Chest AP portable Comparison: 06/19/2019 Findings: The heart remains enlarged. No congestive heart failure is noted. The aorta is calcified. The lungs are well inflated and free of acute alveolar infiltrates. Interstitial lung changes are stable. No pleural effusions are identified. The bony thorax is unremarkable. IMPRESSION: Continued mild cardiomegaly without congestive heart failure Stable interstitial lung changes No acute alveolar infiltrates Reported By:
[2019-06-20] MEDS: DIFLUCAN 200 MG IV PREMIX* 200 MG/100 ML BAG IV SCH (08:11)
[2019-06-20] MEDS: FORTAZ or TAZICEF VIAL INJ 1 G in NS 100 ML IV + SPIKE MINIBAG* 100 ML IV SCH (09:15)
[2019-06-20] MEDS: PULMICORT NEB TX 0.5 MG NEB SCH (09:19)
[2019-06-20] MEDS: MILK OF MAGNESIA PO SCH ×2 (09:59→12:32)
[2019-06-20] MEDS: ROBITUSSIN DM PO SCH ×2 (09:59→12:32)
[2019-06-20] MEDS: VSL#3 PO SCH (10:00)
[2019-06-20] MEDS: HEMOCYTE-PLUS PO SCH (10:00)
[2019-06-20] MEDS: COLACE CAP 100 MG PO SCH (10:00)
[2019-06-20] MEDS: COZAAR PO SCH (10:00)
[2019-06-20] MEDS: PROTONIX TAB 40 MG PO SCH (10:00)
[2019-06-20] MEDS: ZANTAC PO SCH (10:00)
[2019-06-20] MEDS: BENADRYL CAP/TAB 25 MG PO SCH (10:00)
[2019-06-20] MEDS: NORVASC TAB 5 MG PO SCH (10:00)
[2019-06-20] MEDS: NYSTATIN SUSP MT SCH ×2 (10:00→12:32)
[2019-06-20] MEDS: COREG TAB 25 MG PO SCH (10:00)
[2019-06-20] MEDS: LOVENOX INJ 30 MG SYR SC SCH (10:01)
[2019-06-20] MEDS: MUCINEX DM PO SCH (10:01)
[2019-06-20] MEDS: TUSSIONEX PENNKINETIC SUSP PO SCH (10:01)
[2019-06-20] MEDS: FLONASE NASAL SPRAY ENOSTRIL SCH (10:02)
[2019-06-20] MEDS: HIPREX PO SCH (10:02)
[2019-06-20] MEDS: MIRALAX POWDER (1 DOSE 17 G) PO SCH (10:02)
[2019-06-20] MEDS: LEVAQUIN PREMIX IV 500 MG 500 MG/100 ML BAG IV SCH (10:45)
[2019-06-20] MEDS: ALBUMIN HUMAN 25%- 100 ML 100 ML IV SCH (11:45)
[2019-06-20] MEDS: HumuLIN R SUBCUT PRN (12:21)
[2019-06-20 16:38] VITALS: BP 154/67
== END 2019-06-20 16:00 | DRG 195 ==
LOC: MED/SURG 17:40
PROVIDERS: ADMIT Internal Medicine; ATTEND Internal Medicine
DX: M62.81 Muscle weakness (generalized); I25.10 Atherosclerotic heart disease of native coronary artery without angina pectoris; E78.2 Mixed hyperlipidemia; I50.9 Heart failure, unspecified; E11.65 Type 2 diabetes mellitus with hyperglycemia; J18.0 Bronchopneumonia, unspecified organism; R26.2 Difficulty in walking, not elsewhere classified; F41.8 Other specified anxiety disorders; K21.9 Gastro-esophageal reflux disease without esophagitis; R62.7 Adult failure to thrive; R06.02 Shortness of breath; I51.7 Cardiomegaly
CPT/HCPCS: 36415; 71010; 71045; 80053; 83735; 85025; 87040; 87070; 87205; 94640; 94760; 99282; A4222; B5200; P9047; J0713; J1450; J1650; J1815; J1940; J1956; J2920; J3475; J7050; J7620; J7626

== ENCOUNTER 2019-12-05 11:41 | Observation (INO) ==
[2019-12-05 11:50] VITALS: BMI 23.5
[2019-12-05 13:29] LABS: CKMB % 1.9 % (<4); CREATINE KINASE 69 Units/L (26-192); CREATINE KINASE MB 1.3 ng/mL (0-4.0); TROPONIN I < 0.02 ng/mL (0-1.5)
--- NOTE | 2019-12-05 13:53 | RAD ---
HISTORYSyncopeSTUDYChest, PA and lateral [id number] heart is enlarged. There is chronic increase in the interstitial pulmonary pattern consistent with fibrosis. There is enlargement of the main and left/right pulmonary arteries, essentially stable. No acute infiltrate or pleural fluid is demonstrated.IMPRESSIONPersistent cardiomegaly with chronic interstitial fibrotic scarring. Enlarged pulmonary arteries suggesting pulmonary artery hypertension. The particularly large right hilum is suspect for mass formation but there is no change in this appearance when compared to multiple prior chest radiographs.Electronically signed by: ANGELITO CALL (Dec 05, 2019 13:52:02)
[2019-12-05] MEDS ORDERED: LOPRESSOR INJ 5 MG AMP IVP ONE (14:31)
--- NOTE | 2019-12-05 14:31 | DR.DIZZY ---
HPI Time seen Time Seen by Provider: 12/05/19 12:38 PCP Primary Care Physician: MANE HPI Comment HPI Comment: Pt. states symptoms started this AM Complaint Chief Complaint Doctor Comments: No CP, SOB, LOC, N/V Chief Complaint:: PT. C/O FEELING LIGHT HEADED AND FEELS IF HER HEART IS FLUTTERING. Nurses Notes Reviewed Nurses Notes Review: Yes Source History Provided: Patient and Detention Mode of Arrival Mode of Arrival: Wheelchair Timing Onset of Chief Complaint: 12/04/19 Onset of Symptoms Start Date: 12/05/19 Onset of Symptoms Start Time: 04:23 Duration Duration: Since Onset Context History of: Anemia and DM; denies CVA, Electrolyte Disorder, GI Bleed, OH and TIA Stroke Symptoms: None Associated signs and symptoms Associated Signs and Symptoms: Palpitations; denies Syncope, Vertigo, Tinnitus, Imbalance, Weak, Numb, Difficult Speech, Change of Vision, Fever, Headache and Chest Pain PMH PMH Past Medical History: Yes Past Medical History: Anemia, Arthritis, CHF, Coronary Artery Disease, CVA, Depression, Diabetes, Gout, Hypertension, OH, PUD and Renal Disease Past Surgical History: Yes Surgical History: Angioplasty/Stents, Appendectomy, Cholecystectomy and Ortho Surgery Family History History of Family Medical Conditions: Yes Family Medical History: Diabetes Mellitus, Cancer, OH, Coronary Artery Disease, Sudden Cardiac and Hypertension Social History Does patient currently use any type of tobacco product: No Have you used tobacco products in the last 12 months: No Type of Tobacco Use: None Does any household member use tobacco: No Alcohol Use: None Do you use any recreational Drugs:: No Lives Where: Detention infectious screening In the last 2 months have you had wt loss of >10#?: NO Have you had fever, night sweats or hemotysis?: No Have you traveled outside the country in the last 6 months?: No Isolation: Standard PE Vital Signs Vitals: Temperature 98.0 F Pulse Rate 70 Respiratory Rate 19 Blood Pressure [Right Arm] 154/67 Blood Pressure [Left Femoral 129/56 Artery] Blood Pressure [Left Arm] 189/86 Blood Pressure 140/63 O2 Sat by Pulse Oximetry 97 General Limitations: No Limitations General Appearance: Alert and In No Apparent Distress Eyes Eye exam: Normal Appearance ENT ENT Exam: Normal Exam Neck Neck Exam: Normal Inspection, Full ROM and Trachea Midline; negative Tenderness, Meningismus, Lymphadenopathy and Thyromegaly Chest Chest Inspection: Normal Inspection Respiratory Respiratory Exam: Bilateral: Clear to Auscultation Cardiovascular Cardiovascular Exam: Regular Rate, Irregular Rhythm and Normal Heart Sounds; negative Systolic Murmur and Diastolic Murmur Abdominal Exam Abdominal Exam: Normal Inspection and Normal Bowel Sounds; negative Tenderness and Ascites Abdominal Tenderness: negative RUQ, RLQ, LUQ, LLQ, Epigastrium, Suprapubic, Diffuse, Mild, Moderate, Severe and Other Rectal Rectal Exam: Deferred Extremeties Extremities Exam: Normal Inspection Neurologic Neurological Exam: Alert, Oriented X3, CN II-XII Intact and Normal Gait; negative Motor Sensory Deficit Patient Oriented To: Person, Place and Time Speech: Fluid Speech Psychiatric Psychiatric Exam: Normal Affect Skin Skin Exam: Warm, Dry and Normal Color MDM Additional Information Obtained Additional Information Obtained From: Old Records Differential Diagnosis Differential Diagnosis: Anemia, CVA, Dehydration, Dysrhythmia, Electrolyte disorder, Hypoglycemia, Myocardial infarction, TIA, Central Vertigo, Peripheral Vertigo and Vestibular neuronitis COURSE Treatment Treatment: cardiac monitoring Reevaluation 1st: Unchanged ROR Labs Reviewed Laboratory Results Reviewed?: Yes Laboratory: Creatine Kinase 69 Units/L (26-192) 12/05/19 10:49 CK-MB (CK-2) 1.3 ng/mL (0-4.0) 12/05/19 10:49 CK/CKMB % Calc 1.9 % (<4) 12/05/19 10:49 Troponin I < 0.02 ng/mL (0-1.5) 12/05/19 10:49 Other Results Comments: HISTORY Syncope STUDY Chest, PA and lateral views COMPARISON 06/20/2019 FINDINGS The heart is enlarged. There is chronic increase in the interstitial pulmonary pattern consistent with fibrosis. There is enlargement of the main and left/right pulmonary arteries, essentially stable. No acute infiltrate or pleural fluid is demonstrated. IMPRESSION Persistent cardiomegaly with chronic interstitial fibrotic scarring. Enlarged pulmonary arteries suggesting pulmonary artery hypertension. The particularly large right hilum is suspect for mass formation but there is no change in this appearance when compared to multiple prior chest radiographs. Electronically signed by: ANGELITO CALL (Dec 05, 2019 13:52:02) XRAY XRAY Interpreted by: Radiologist EKG Rate: 90 [place]: Normal Rhythm: PVCs (ventricular bigeminy) Hypertrophy: LVH ST: Old, Inf, Infarct and Nonsp Opioid Opioid Risk Tool Age (Ulises box if 16-45): No History of Preadolescent Sexual Abuse: No Total: 0 Total Score Risk Category: Low Risk Copyright: Noah LUIS predicting aberrant behaviors Diagnosis Discharge Problem: Ventricular bigeminy, Near syncope Instructions Forms: Excuse From Work Patient Portal
[2019-12-05] MEDS ORDERED: LOPRESSOR INJ 5 MG AMP ONE (14:48)
[2019-12-05] MEDS ORDERED: DUONEB 0.5 MG/3 MG (3 mL) NEB PRN ×2 (15:02→15:25)
[2019-12-05] MEDS ORDERED: PHARMACY CONSULT LTC MEDICATIONS XX SCH (18:00)
[2019-12-05 18:27] LABS: BILIRUBIN,URINE NEGATIVE (NEGATIVE); BLOOD/HEMOGLOBIN,URINE NEGATIVE (NEGATIVE); GLUCOSE, URINE NEGATIVE (NEGATIVE); KETONES,URINE NEGATIVE (NEGATIVE); LEUKOCYTE ESTERASE ,URINE 1+ (NEGATIVE); NITRITES,URINE NEGATIVE (NEGATIVE); PROTEIN,URINE 1+ (NEGATIVE); UROBILINOGEN,URINE NORMAL (NORMAL)
[2019-12-05 18:49] LABS: APPEARANCE,URINE CLEAR (CLEAR); COLOR,URINE YELLOW (YELLOW)
[2019-12-05 18:50] LABS: BACTERIA,URINE NEGATIVE /HPF (NEGATIVE); RBC,URINE 0-2 /HPF (0-3); SQUAMOUS EPITHELIAL CELL,UR MODERATE /HPF (NEGATIVE)
[2019-12-05] MEDS ORDERED: OXYBUTYNIN CHLORIDE 10 MG PO SCH (21:00)
[2019-12-05] MEDS ORDERED: PULMICORT NEB TX 0.5 MG NEB SCH (21:00)
[2019-12-05] MEDS ORDERED: PROVENTIL NEB TX 0.083% 2.5MG/ 3ML NEB SCH (21:00)
[2019-12-05] MEDS: PULMICORT NEB TX 0.5 MG NEB SCH (21:20)
[2019-12-05] MEDS: PROVENTIL NEB TX 0.083% 2.5MG/ 3ML NEB SCH (21:20)
[2019-12-05] MEDS: AMINO ACIDS PROTEIN HYDROLYS PO SCH ×2 (21:25→22:00)
[2019-12-05] MEDS: PATIENT'S HOME MEDICATION (Lubiprostone [Amitiza] 8 MCG) PO SCH (21:25)
[2019-12-05] MEDS: COLACE CAP 100 MG PO SCH (21:27)
[2019-12-05] MEDS: PRAVACHOL PO SCH (21:27)
[2019-12-05] MEDS: BENADRYL CAP/TAB 25 MG PO SCH (21:27)
[2019-12-05] MEDS: COREG TAB 25 MG PO SCH (21:27)
[2019-12-05] MEDS: KLONOPIN TAB 0.5 MG PO SCH (21:27)
[2019-12-05] MEDS: APRESOLINE TAB 25 MG PO SCH (21:28)
[2019-12-05] MEDS: COZAAR PO SCH (21:28)
[2019-12-05] MEDS: TESSALON PERLES PO SCH (21:28)
[2019-12-05] MEDS: OXYBUTYNIN CHLORIDE ER PO SCH (22:15)
[2019-12-05] MEDS: ULTRAM PO PRN (22:21)
[2019-12-06 05:49] LABS: BASOPHILS % (AUTO) 0.7 % (0.2-1.0); EOSINOPHILS # (AUTO) 0.4 x10^3/uL (0.0-0.2); EOSINOPHILS % (AUTO) 5.6 % (0.9-2.9); HEMATOCRIT 32.5 % (36.0-47.0); HEMOGLOBIN 10.9 g/dL (12.0-16.0); LYMPHOCYTES # (AUTO) 1.6 X10^3/uL (1.3-2.9); LYMPHOCYTES % (AUTO) 23.3 % (21.0-51.0); MEAN CORPUSCULAR HEMOGLOBIN 32.4 pg (27.0-34.0); MEAN CORPUSCULAR HGB CONC 33.7 g/dL (33.0-35.0); MEAN CORPUSCULAR VOLUME 96.1 fL (80.0-100.0); MONOCYTES # (AUTO) 0.7 x10^3/uL (0.3-0.8); MONOCYTES % (AUTO) 9.9 % (0.0-13.0); NEUTROPHILS % (AUTO) 60.5 % (42.0-75.0); PLATELET COUNT 178 X10^3/uL (150.0-450.0); RED BLOOD COUNT 3.38 X10^6/uL (3.5-5.4); RED CELL DISTRIBUTION WIDTH 13.1 % (11.6-16.5); WHITE BLOOD COUNT 6.7 X10^3/uL (3.6-10.0)
[2019-12-06] MEDS: APRESOLINE TAB 25 MG PO SCH ×3 (05:54→21:26)
[2019-12-06] MEDS: TESSALON PERLES PO SCH ×3 (05:55→21:26)
[2019-12-06 06:02] LABS: ALBUMIN 2.8 g/dL (3.4-5.0); CALCIUM 8.9 mg/dL (8.5-10.1); CARBON DIOXIDE 33.2 mmol/L (21-32); COR CA(FOR HYPOALB) 9.9 mg/dL (8.5-10.1); CREATININE 1.45 mg/dL (0.55-1.02); TOTAL PROTEIN 5.8 g/dL (6.4-8.2)
--- NOTE | 2019-12-06 06:42 | RAD ---
HISTORYShortness of breathSTUDYCHEST, 1 [id number]/21/2020FINDINGSThe heart remains enlarged. No congestive heart failure is noted. Mild interstitial lung changes are present. There is some perihilar subsegmental atelectasis on the right no definite acute alveolar infiltrates or pleural effusions are identified. Bony thorax is unremarkable.IMPRESSIONMild cardiomegaly without congestive heart failurePerihilar subsegmental atelectasis on the rightElectronically signed by: STEPHAN CLARK (Dec 06, 2019 06:41:28)
[2019-12-06] MEDS ORDERED: PATIENT'S HOME MEDICATION (Ferrous Fumarate [Ferrocite] 324 MG) PO SCH (09:00)
[2019-12-06] MEDS: BENADRYL CAP/TAB 25 MG PO SCH ×2 (09:16→20:49)
[2019-12-06] MEDS: PROTONIX TAB 40 MG PO SCH (09:16)
[2019-12-06] MEDS: COZAAR PO SCH ×2 (09:16→20:49)
[2019-12-06] MEDS: NORVASC TAB 5 MG PO SCH (09:16)
[2019-12-06] MEDS: FLONASE NASAL SPRAY ENOSTRIL SCH (09:17)
[2019-12-06] MEDS: COREG TAB 25 MG PO SCH ×2 (09:17→20:49)
[2019-12-06] MEDS: COLACE CAP 100 MG PO SCH ×2 (09:17→20:49)
[2019-12-06] MEDS: HEMOCYTE-PLUS PO SCH (09:17)
[2019-12-06] MEDS: AMINO ACIDS PROTEIN HYDROLYS PO SCH (09:25)
[2019-12-06] MEDS: PATIENT'S HOME MEDICATION (Lubiprostone [Amitiza] 8 MCG) PO SCH ×2 (09:42→20:50)
[2019-12-06] MEDS: PREDNISONE 2 MG PO SCH (09:43)
[2019-12-06] MEDS: PROVENTIL NEB TX 0.083% 2.5MG/ 3ML NEB SCH ×2 (10:13→20:50)
[2019-12-06] MEDS: PULMICORT NEB TX 0.5 MG NEB SCH ×2 (10:13→20:50)
[2019-12-06] MEDS: LOVENOX INJ 30 MG SYR SC SCH (14:03)
--- NOTE | 2019-12-06 19:01 | DR.H&P ---
H&P - History & Physical for Day of: H&P Date: 12/05/19 - Chief Complaint Chief Complaint: DIZZINESS, WEAKNESS, PALPATATIONS - History of Present Illness History of Present Illness: IS A 89 YEAR OLD PATIENT OF OURS WHO PRESENTED TO THE ER FROM [facility] WITH REPORTS OF DIZZINESS AND FEELING LIKE HER HEART WAS GLUTTERING. SHE DENIES CHEST PAIN, SOB, LOC, OR NAUSEA/VOMITING. ON ARRIVAL, VITALS WERE 98.0-56-16-97%-161/55. LABS WERE OBTAINED. ABNORMAL LAB VALUES INCLUDE THE FOLLOWING: WBC 12.6, CARBON DIOXIDE 32.1, BUN 41, CREATININE 1.53. CARDIAC ENZYMES WITHIN NORMAL LIMITS. A URINALYSIS WAS OBTAINED AND REVEALED: WBC 0-2, RBC 0-2, BACTERIA NEGATIVE, LEUKOCYTES 1+. EKG WAS OBTAINED AND REVEALED: SINUS RHTYHM, VENTRICULAR BIGEMINY, WITH HR 90. CHEST XRAY REVEALED: Persistent cardiomegaly with chronic interstitial fibrotic scarring. Enlarged pulmonary arteries suggesting pulmonary artery hypertension. The particularly large right hilum is suspect for mass formation but there is no change in this appearance when compared to multiple prior chest radiographs. SHE WAS GIVEN LOPRESSOR 5MG IV X 1 DOSE. SHE WAS ADMITTED FOR FURTHER EVALUATION AND TREATMENT OF NEAR SYNCOPE WITH VENTRICULAR BIGEMINY. WE PLAN TO OBTAIN SERIAL CARDIAC ENZYMES AND EKGS. OTHERWISE, WE WILL FOLLOW UP WITH AM LABS AND CONTINUE TO MONITOR. - Past Medical History Past Medical History: ND, Coronary Artery Disease, Hypertension, Diabetes, Renal Disease, Depression, Anemia, CVA, PUD, Arthritis, Gout, CHF Additional Medical History: Legally Blind, Tremors, Bronchitis, Constipation, Frequent UTI's, Gout, Breast Cancer, Fracture of Wrist, Fracture of Right Femur, TIAs, back pain, DDD - Past Surgical History Surgical History: Angioplasty/Stents, Appendectomy, Cholecystectomy Additional Surgical History: back surgery, left lumpectomy - Family History Family Medical History: ND, Coronary Artery Disease, Sudden Cardiac , Hypertension - Social History Does patient currently use any type of tobacco product: No Have you used tobacco products in the last 12 months: No Type of Tobacco Use: None Does any household member use tobacco: No Alcohol Use: None Drug Use: None - Medications Home Medications: lanolin [From Artificial Tears] Allergy (Verified 06/13/19 13:33) mineral oil [From Artificial Tears] Allergy (Verified 06/13/19 13:33) Penicillins Allergy (Verified 04/04/18 19:58) petrolatum,white [From Artificial Tears] Allergy (Verified 06/13/19 13:33) zolpidem Allergy (Verified 04/04/18 19:58) diazepam Adverse Reaction (Verified 04/04/18 19:58) CONFUSION CONTINUE taking the following medications L.acidoph,saliva-B.bif-S.therm [Acidophilus Probiotic Blend] 2 cap PO DAILY 12/05/19 [History] benzonatate [Tessalon Perles] 200 mg PO TID 12/05/19 [History] ferrous fumarate [Ferrocite] 324 mg PO DAILY 12/05/19 [History] ipratropium-albuterol 1 ml INHALATION TID PRN 12/05/19 [History] lubiprostone [Amitiza] 8 mcg PO BID 12/05/19 [History] oxybutynin chloride 10 mg PO HS 12/05/19 [History] prednisone 2 mg PO DAILY 12/05/19 [History] - Review of Systems Constitutional: Weakness Eyes: No Symptoms Reported ENT: No Symptoms Reported Respiratory: No Symptoms Reported, Shortness of Breath Cardiovascular: Palpitations, Light Headedness Gastrointestinal: No Symptoms Reported Genitourinary: No Symptoms Reported Musculoskeletal: No Symptoms Reported Skin: No Symptoms Reported Neurological: Weakness - Physical Exam Vital Signs: Temperature 99.0 F Pulse Rate 76 Respiratory Rate 21 Blood Pressure [Right Arm] 154/67 Blood Pressure [Left Femoral 129/56 Artery] Blood Pressure [Left Arm] 189/86 Blood Pressure 143/69 O2 Sat by Pulse Oximetry 97 Oriented: Normal Eyes: Normal Ear: Normal Nose: Normal Respiratory: Diminished Throughout Cardiovascular: Normal : Normal Auscultation: Bowel Sounds: Normal Palpation: Normal Skin: Normal Musculoskeletal: Normal Psychiatric: Normal Mood Description: Calm Affect: Normal - Assessment/Plan (1) Near syncope Status: Acute Plan: ADMIT, SERIAL CARDIAC ENZYMES AND EKGS, PHARMACY CLINICAL SPECIALIST, CONTINUE HOME MEDS, CONTINUE TO MONITOR (2) Ventricular bigeminy Status: Acute - Allergies Allergies/Adverse Reactions: Allergies Allergy/AdvReac Type Severity Reaction Status Date / Time lanolin Allergy Verified 06/13/19 13:33 [From Artificial Tears] mineral oil Allergy Verified 07/30/19 13:33 [From Artificial Tears] Penicillins Allergy Verified 04/04/18 19:58 petrolatum,white Allergy Verified 06/13/19 13:33 [From Artificial Tears] zolpidem Allergy Verified 04/04/18 19:58 diazepam AdvReac CONFUSION Verified 04/04/18 19:58
[2019-12-06] MEDS: KLONOPIN TAB 0.5 MG PO SCH (20:48)
[2019-12-06] MEDS: OXYBUTYNIN CHLORIDE ER PO SCH (20:48)
[2019-12-06] MEDS: PRAVACHOL PO SCH (20:49)
[2019-12-06] MEDS: ULTRAM PO PRN (21:15)
[2019-12-06] MEDS: HumuLIN R SUBCUT PRN (21:25)
[2019-12-07] MEDS ORDERED: MAALOX or MYLANTA PO PRN (02:51)
[2019-12-07] MEDS ORDERED: MAALOX or MYLANTA ONE (02:51)
[2019-12-07] MEDS: APRESOLINE TAB 25 MG PO SCH ×2 (05:45→13:41)
[2019-12-07] MEDS: TESSALON PERLES PO SCH ×2 (05:45→13:41)
[2019-12-07] MEDS: HumuLIN R SUBCUT PRN ×2 (05:46→12:31)
[2019-12-07 06:09] LABS: BASOPHILS % (AUTO) 0.7 % (0.2-1.0); EOSINOPHILS # (AUTO) 0.4 x10^3/uL (0.0-0.2); EOSINOPHILS % (AUTO) 7.4 % (0.9-2.9); HEMATOCRIT 34.9 % (36.0-47.0); HEMOGLOBIN 11.6 g/dL (12.0-16.0); LYMPHOCYTES # (AUTO) 1.4 X10^3/uL (1.3-2.9); LYMPHOCYTES % (AUTO) 22.9 % (21.0-51.0); MEAN CORPUSCULAR HEMOGLOBIN 32.1 pg (27.0-34.0); MEAN CORPUSCULAR HGB CONC 33.3 g/dL (33.0-35.0); MEAN CORPUSCULAR VOLUME 96.4 fL (80.0-100.0); MEAN PLATELET VOLUME 8.3 fL (7.4-11.0); MONOCYTES # (AUTO) 0.6 x10^3/uL (0.3-0.8); MONOCYTES % (AUTO) 9.3 % (0.0-13.0); NEUTROPHILS # (AUTO) 3.6 x10^3/uL (2.2-4.8); NEUTROPHILS % (AUTO) 59.7 % (42.0-75.0); PLATELET COUNT 188 X10^3/uL (150.0-450.0); RED BLOOD COUNT 3.62 X10^6/uL (3.5-5.4); RED CELL DISTRIBUTION WIDTH 12.9 % (11.6-16.5)
[2019-12-07 06:10] LABS: ALBUMIN 2.9 g/dL (3.4-5.0); CARBON DIOXIDE 32.6 mmol/L (21-32); COR CA(FOR HYPOALB) 9.9 mg/dL (8.5-10.1); CREATININE 1.41 mg/dL (0.55-1.02); TOTAL PROTEIN 5.9 g/dL (6.4-8.2)
--- NOTE | 2019-12-07 06:11 | RAD ---
HISTORYShortness of breathSTUDYCHEST, 1 [id number]/22/2020FIN DINGSThe heart remains enlarged. No congestive heart failure is noted. No acute alveolar infiltrates or pleural effusions are identified. The right hemidiaphragm is elevated.IMPRESSIONCardiomegaly without congestive heart failureNo acute infiltratesElectronically signed by: STEPHAN CLARK (Dec 07, 2019 06:09:59)
[2019-12-07] MEDS: LOVENOX INJ 30 MG SYR SC SCH (08:43)
[2019-12-07] MEDS: COLACE CAP 100 MG PO SCH (08:46)
[2019-12-07] MEDS: COREG TAB 25 MG PO SCH (08:46)
[2019-12-07] MEDS: COZAAR PO SCH (08:47)
[2019-12-07] MEDS: FLONASE NASAL SPRAY ENOSTRIL SCH (08:47)
[2019-12-07] MEDS: PATIENT'S HOME MEDICATION (Lubiprostone [Amitiza] 8 MCG) PO SCH (08:48)
[2019-12-07] MEDS: HEMOCYTE-PLUS PO SCH (08:48)
[2019-12-07] MEDS: PREDNISONE 2 MG PO SCH (08:49)
[2019-12-07] MEDS: NORVASC TAB 5 MG PO SCH (08:49)
[2019-12-07] MEDS: PROTONIX TAB 40 MG PO SCH (08:50)
[2019-12-07] MEDS ORDERED: VSL#3 PO SCH (09:00)
[2019-12-07] MEDS ORDERED: CATAPRES-TTS-3 TD SCH (09:00)
[2019-12-07] MEDS: PROVENTIL NEB TX 0.083% 2.5MG/ 3ML NEB SCH (09:54)
[2019-12-07] MEDS: PULMICORT NEB TX 0.5 MG NEB SCH (09:54)
[2019-12-07] MEDS: BENADRYL CAP/TAB 25 MG PO SCH (10:15)
[2019-12-07 13:33] VITALS: BP 129/58
[2019-12-07] MEDS ORDERED: SNACK - Diabetic Appropriate PO SCH (20:00)
== END 2019-12-07 13:45 ==
LOC: ICU 11:41 → ER 11:41 → ICU 15:04
PROVIDERS: ADMIT Internal Medicine; ATTEND Internal Medicine
DX: R00.8 Other abnormalities of heart beat; E11.8 Type 2 diabetes mellitus with unspecified complications; R26.89 Other abnormalities of gait and mobility; I25.10 Atherosclerotic heart disease of native coronary artery without angina pectoris; I25.2 Old myocardial infarction; I10 Essential (primary) hypertension; R55 Syncope and collapse; N28.9 Disorder of kidney and ureter, unspecified
CPT/HCPCS: 36415; 71010; 71020; 71045; 71046; 80053; 81001; 82550; 82553; 84484; 85025; 93005; 93041; 94640; 96365; 96374; 97162; 99284; A4216; A4222; G0378; J1650; J1815; J3490; J7613; J7626